=== PATIENT | male | born 1960 | race Caucasian/White ===

== ENCOUNTER → 2019-01-01 | Outpatient (CLI) | payer MEDICARE, OTHER ==
--- NOTE | 2019-01-01 16:56 | CT ---
EXAMINATION TYPE: CT brain wo con DATE OF EXAM: 01/01/2019 COMPARISON: None HISTORY: Transient cerebral ischemic attack CT DLP: 1135.5 mGycm Automated exposure control for dose reduction was used. Helical imaging through the brain FINDINGS: Postop changes are noted at the convexity to the right of midline, multiple patellar fragments are pr esent at the level of the calvarium and also within the parietal brain, there is streak artifact, loc al gliotic change likely present. Extra-axial phenomenon is present likely due to some encephalomalac ia and prior surgery. There is no midline shift. No evident hemorrhage. There is mild cortical atroph y present likely age-related. Some thinning of the corpus callosum is suspected posteriorly. Cerebrov ascular calcifications are present. Paranasal sinuses and mastoid air cells are well aerated. Orbits are symmetric. IMPRESSION: FINDINGS ARE LIKELY DUE TO PRIOR TRAUMA. NO ACUTE ABNORMALITY IS SUSPECTED.
== END | disposition home or self-care (01) ==
LOC: RADCTMAIN 15:35
PROVIDERS: ATTEND Internal Medicine
DX: G45.9 Transient cerebral ischemic attack, unspecified (principal)
CPT/HCPCS: 70450

== ENCOUNTER 2020-02-16 18:15 | Emergency (ER) | payer MEDICARE, OTHER ==
[2020-02-16 18:28] VITALS: BP 138/78; PULSE 88; RESP 18; TEMP 98.2
--- NOTE | 2020-02-16 18:29 | ED ---
General Adult HPI - General Chief complaint: Urogenital Stated complaint: Catheter Issues Time Seen by Provider: 02/16/20 18:17 - History of Present Illness Initial comments: 59-year-old male patient currently residing at an extended care facility with left-sided paralysis and a chronic indwelling Quezada catheter. Patient states for the last 3 days they have been having difficulty reinserting his Quezada catheter. States that he has no control over his bladder and his catheter has been in place since 2004. Patient states he is having some discomfort to his genitalia due to the multiple catheter attempts. Denies any bleeding. Denies any fever or chills. Denies any abdominal pain or flank pain. Patient is coming in only to have his catheter replaced. Patient denies any recent rash, cough, shortness of breath, chest pain, nausea, vomiting, diarrhea, constipation, numbness, tingling, dizziness, weakness, headache, visual changes, or any other complaints. - Related Data Allergies Allergy/AdvReac Type Severity Reaction Status Date / Time No Known Allergies Allergy Verified 02/16/20 18:29 Review of Systems ROS Statement: Those systems with pertinent positive or pertinent negative responses have been documented in the HPI. ROS Other: All systems not noted in ROS Statement are negative. Past Medical History History of Any Multi-Drug Resistant Organisms: VRE Date of last positivie culture/infection: 02/19/19 MDRO Source:: Urine General Exam General appearance: alert, in no apparent distress, other (This is a well- developed, well-nourished adult male patient in no acute distress. ) Respiratory exam: Present: normal lung sounds bilaterally. Absent: respiratory distress, wheezes, rales, rhonchi, stridor Cardiovascular Exam: Present: regular rate, normal rhythm, normal heart sounds. Absent: systolic murmur, diastolic murmur, rubs, gallop, clicks GI/Abdominal exam: Present: soft, normal bowel sounds. Absent: distended, tenderness, guarding, rebound, rigid exam: Present: normal inspection Neurological exam: Present: alert, oriented X3, CN II-XII intact Psychiatric exam: Present: normal affect, normal mood Skin exam: Present: warm, dry, intact, normal color. Absent: rash Course Vital Signs 02/16/20 18:24 Temperature 98.2 F Pulse Rate 88 Respiratory 18 Rate Blood Pressure 138/78 O2 Sat by Pulse 96 Oximetry Medical Decision Making - Medical Decision Making 59-year-old male patient presented for Quezada catheter replacement. Patient has had chronic indwelling Quezada since 2004. Nursing staff at his extended care facility is having difficulty placing the catheter since . Nursing staff here was able to place a 16-Japanese coud catheter. It is draining clear yellow urine. Patient is much more comfort. We discharged back to his extended care facility and instructed to follow-up with his physician as needed. Return parameters were discussed in detail. He verbalizes understanding and agrees with this plan. Disposition Clinical Impression: Encounter for Quezada catheter replacement Disposition: HOME SELF-CARE Condition: Good Instructions (If sedation given, give patient instructions): Quezada Catheter Placement and Care (ED) Additional Instructions: Follow-up with your primary care physician as needed. Return for any new, worsening, or concerning symptoms. Is patient prescribed a controlled substance at d/c from ED?: No Referrals: Daniel You MD [Primary Care Provider] - 1-2 days Time of Disposition: 18:58
== END 2020-02-16 21:42 | disposition home or self-care (01) ==
LOC: EC 18:15
DX: Z46.6 Encounter for fitting and adjustment of urinary device (principal); N42.9 Disorder of prostate, unspecified; G81.94 Hemiplegia, unspecified affecting left nondominant side
CPT/HCPCS: 51702; 99283

== ENCOUNTER → 2021-03-05 | Outpatient (CLI) | payer MEDICARE, OTHER ==
--- NOTE | 2021-03-05 12:31 | CT ---
EXAMINATION TYPE: CT brain wo con DATE OF EXAM: 03/05/2021 COMPARISON: 01/01/2019 INDICATION: Pain behind right eye and right ear. Pain between both eyes. DLP: 1201 mGycm, Automated exposure control for dose reduction was used. CONTRAST: None CT of the brain is performed utilizing 3 mm thick sections through the posterior fossa and 3 mm thick sections through the remaining calvarium. Study is performed within 24 hours of arrival to the hosp ital. Craniotomy defect is at the right parietal vertex. Multiple metallic type fragments are at the cranio av site. There is a dense metallic structure within the parietal lobe region. No abnormal hyperdensity is present to suggest an acute intracranial hemorrhage. No mass lesion is evident. There is encephalomalacia of the right parietal lobe. There is enlargement of the lateral ventricle. No hydrocephalus evident. No temporal horn dilatation is evident. No acute infarcts are evident. Ventricles and sulci are otherwise appropriate for the patient age. Paranasal sinuses and mastoid air cells within the [id number] are clear. Orbits appear symmetrical. Globes are symmetrical. Optic nerves are normal. Region of the optic chias m is unremarkable. Occipital lobes appear within normal limits. IMPRESSIONS: 1. Stable changes in the right parietal lobe with right parietal craniotomy. 2. No suspicious acute interval change or acute changes to account for patient's symptoms
== END | disposition home or self-care (01) ==
LOC: RADCTMAIN 11:33
PROVIDERS: ATTEND Internal Medicine
DX: G44.221 Chronic tension-type headache, intractable (principal)
CPT/HCPCS: 70450

== ENCOUNTER 2021-04-13 05:40 | Emergency (ER) | payer MEDICARE, OTHER ==
[2021-04-13 05:54] VITALS: BP 144/76; PULSE 78; RESP 18; TEMP 97.9
--- NOTE | 2021-04-13 05:59 | ED ---
Fall HPI - General Chief Complaint: Fall Stated Complaint: Fall Time Seen by Provider: 04/13/21 05:46 Source: patient, EMS, RN notes reviewed, old records reviewed Mode of arrival: EMS Limitations: no limitations - History of Present Illness Initial Comments: This is a 60-year-old male presented for evaluation of possible fall. Patient has some sort of fall prior to arrival unsure poor historian. Patient was going of back pain and ankle pain and hit his head. No loss of consciousness. No blood thinners. No chest pain shortness of breath or abdominal pain currently. 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 ROS Other: All systems not noted in ROS Statement are negative. Past Medical History Past Medical History: Prostate Disorder History of Any Multi-Drug Resistant Organisms: VRE Date of last positivie culture/infection: 02/19/19 MDRO Source:: Urine Past Psychological History: No Psychological Hx Reported Past Alcohol Use History: None Reported Past Drug Use History: None Reported General Exam General appearance: alert, in no apparent distress Head exam: Present: atraumatic, normocephalic, normal inspection Eye exam: Present: normal appearance, PERRL, EOMI. Absent: scleral icterus, conjunctival injection, periorbital swelling ENT exam: Present: normal exam, mucous membranes moist Neck exam: Present: normal inspection. Absent: tenderness, meningismus, lymphadenopathy Respiratory exam: Present: normal lung sounds bilaterally. Absent: respiratory distress, wheezes, rales, rhonchi, stridor Cardiovascular Exam: Present: regular rate, normal rhythm, normal heart sounds. Absent: systolic murmur, diastolic murmur, rubs, gallop, clicks GI/Abdominal exam: Present: soft, normal bowel sounds. Absent: distended, tenderness, guarding, rebound, rigid Extremities exam: Present: normal inspection, full ROM, normal capillary refill. Absent: tenderness, pedal edema, joint swelling, calf tenderness Back exam: Present: normal inspection Neurological exam: Present: alert, oriented X3, CN II-XII intact Psychiatric exam: Present: normal affect, normal mood Skin exam: Present: warm, dry, intact, normal color. Absent: rash Course Vital Signs 04/13/21 05:45 Temperature 97.9 F Pulse Rate 78 Respiratory 18 Rate Blood Pressure 144/76 O2 Sat by Pulse 98 Oximetry - Reevaluation(s) Reevaluation #1: Medical records reviewed Patient's in no acute distress of active pain control Symptoms improved feels okay for discharge Medical Decision Making - Medical Decision Making 60 male for mechanical fall. No cause of fall noted. No injury from fall noted. Patient can be discharged home - Radiology Data Radiology results: report reviewed (CT brain C-spine x-ray chest pelvis ankle negative for traumatic injury), image reviewed Disposition Clinical Impression: Fall Disposition: HOME SELF-CARE Condition: Good Instructions (If sedation given, give patient instructions): Fall Prevention for Older Adults (ED) Is patient prescribed a controlled substance at d/c from ED?: No Referrals: Daniel You MD [Primary Care Provider] - 1-2 days
--- NOTE | 2021-04-13 06:30 | CT ---
EXAM: CT Head Without Intravenous Contrast CLINICAL HISTORY: ITS.REASON CT Reason: fall TECHNIQUE: Axial computed tomography images of the head/brain without intravenous contrast. CTDI is 33.185 mGy and DLP is 824.2 mGy-cm. This CT exam was performed using one or more of the following dose reduction techniques: automated exposure control, adjustment of the mA and/or kV according to patient size, and/or use of iterative reconstruction technique. COMPARISON: 03/05/2021 FINDINGS: Brain: Unchanged cystic encephalomalacia involving the right parietal lobe. No hemorrhage. No significant white matter disease. No edema. Ventricles: Unremarkable. No ventriculomegaly. Bones/joints: Right parietal craniectomy with retained metallic fragment along the medial right parietal lobe. No acute fracture. Soft tissues: Unremarkable. Sinuses: Mild bilateral mastoid sinus mucosal thickening. Mastoid air cells: Unremarkable as visualized. No mastoid effusion. IMPRESSION: 1. No acute intracranial process. 2. Stable appearance postsurgical changes from right parietal craniectomy defect and cystic encephalomalacia of the right parietal lobe near the vertex. EXAM: CT Cervical Spine Without Intravenous Contrast CLINICAL HISTORY: ITS.REASON CT Reason: fall TECHNIQUE: Axial computed tomography images of the cervical spine without intravenous contrast. CTDI is 33.185 mGy and DLP is 824.2 mGy-cm. This CT exam was performed using one or more of the following dose reduction techniques: automated exposure control, adjustment of the mA and/or kV according to patient size, and/or use of iterative reconstruction technique. COMPARISON: No relevant prior studies available. FINDINGS: Vertebrae: Unremarkable. No acute fracture. No spondylolisthesis. Discs/spinal canal/neural foramina: No acute findings. No spinal canal stenosis. Multilevel anterior osteophytes, most prominent at C5-C6. Soft tissues: Unremarkable. No prevertebral edema. IMPRESSION: 1. No CT evidence of acute traumatic injury to the cervical spine. 2. Mild degenerative disc disease of the lower cervical spine. No significant spinal canal narrowing.
--- NOTE | 2021-04-13 06:48 | XR ---
EXAM: XR Chest, 1 View CLINICAL HISTORY: ITS.REASON XR Reason: fall TECHNIQUE: Frontal view of the chest. COMPARISON: No relevant prior studies available. FINDINGS: Lungs: Unremarkable. No consolidation. Pleural space: Unremarkable. No pneumothorax. Heart: Unremarkable. No cardiomegaly. Mediastinum: Unremarkable. Bones/joints: Unremarkable. IMPRESSION: No acute pulmonary process.
--- NOTE | 2021-04-13 06:49 | XR ---
EXAM: XR Pelvis, 1 or 2 Views CLINICAL HISTORY: ITS.REASON XR Reason: fall TECHNIQUE: Frontal view of the pelvis. COMPARISON: No relevant prior studies available. FINDINGS: Bones/joints: Unremarkable. No acute fracture. No dislocation. Soft tissues: Unremarkable. IMPRESSION: Normal pelvis x-ray.
--- NOTE | 2021-04-13 06:50 | XR ---
EXAM: XR Left Ankle Complete, 3 or More Views CLINICAL HISTORY: ITS.REASON XR Reason: fall TECHNIQUE: Frontal, lateral and oblique views of the left ankle. COMPARISON: No relevant prior studies available. FINDINGS: Bones/joints: Unremarkable. No acute fracture. No dislocation. Diffuse osteopenia Soft tissues: Soft tissue swelling with circumferential subcutaneous stranding about the left ankle. IMPRESSION: No acute fracture or dislocation of the left ankle.
--- NOTE | 2021-04-13 06:52 | XR ---
EXAM: XR Lumbosacral Spine, 2 or 3 Views CLINICAL HISTORY: ITS.REASON XR Reason: fall TECHNIQUE: Frontal and lateral views of the lumbar spine and sacrum. COMPARISON: No relevant prior studies available. FINDINGS: Vertebrae: Unremarkable. No acute fracture. Normal alignment. Sacrum/coccyx: Unremarkable as visualized. No acute fracture. Disc spaces: No acute findings. Mild disc space narrowing at L4-5 and L5-S1. Large anterior osteophytes at L4-L5. Soft tissues: Unremarkable. IMPRESSION: No acute fractures or spondylolisthesis of the lumbar spine.
== END 2021-04-13 08:55 | disposition home or self-care (01) ==
LOC: EEVIPCON 05:40 → EC 05:40
DX: M25.572 Pain in left ankle and joints of left foot (principal); W01.0XXA Fall on same level from slipping, tripping and stumbling without subsequent striking against object, initial encounter
CPT/HCPCS: 70450; 71045; 72100; 72125; 72170; 99285

== ENCOUNTER → 2021-08-03 | Outpatient (CLI) | payer MEDICARE, OTHER ==
--- NOTE | 2021-08-03 09:41 | CT ---
EXAMINATION TYPE: CT head without contrast CT angio head DATE OF EXAM: 08/03/2021 COMPARISON: 04/13/2021 CT brain HISTORY: 61-year-old male R51 Headache, R56.9 seizure, dizziness TECHNIQUE: Contiguous axial scanning of the brain performed without IV contrast. Coronal and sagittal reconstructions performed. Subsequent scanning after administration of 100 ml mL of Isovue 370. Azul nal/sagittal MIP reconstructions performed. 3-D reconstructions generated on a dedicated independent workstation. CT DLP: 2365 mGycm Automated exposure control for dose reduction was used. FINDINGS: CT HEAD WITHOUT CONTRAST: Redemonstrated superior right frontoparietal craniectomy with some retained metal debris about the os teotomy defect and underlying brain parenchyma as well as within the overlying scalp. Some CSF is again noted bulging across the craniectomy defect measuring 2.7 cm. Redemonstrated underlying encephalomalacia with a contiguous extra-axial enlargement of the atrium of the right lateral ventricle. Adjacent white matter hypodensity extending into the superior right occipital lobe is unchanged. No evidence for acute intracranial hemorrhage, acute ischemic change, mass, mass effect, midline shif t, otherwise any extra-axial fluid collection. No effacement of cerebral sulci or basal subarachnoid cisterns. Cole-white matter differentiation is maintained. Lobulated mucosal thickening redemonstrated along the floor of the left maxillary sinus. Mastoid air cells well pneumatized. Orbits and globes appear intact. CTA BRAIN: The right vertebral artery is hypoplastic and diminutive. It may terminate as a PICA branch. Vertebral and basilar arteries are patent. Persistent origin right posterior cerebral artery. Posterior circulation otherwise appears mitchell nt: Mild atherosclerotic irregularity throughout. Mild atherosclerotic calcifications within the carotid siphons. Possible moderate atherosclerotic rayna rowing at the clinoid segment of the right ICA, axial image 232 series 9. Mild atherosclerotic irregularity throughout the anterior circulation but otherwise without any signi ficant stenosis. No aneurysmal change is seen. IMPRESSION: HEAD: 1. REDEMONSTRATED RIGHT-SIDED SUPERIOR FRONTOPARIETAL CRANIECTOMY WITH SIMILAR 2.7 CM BULGING CSF ACR OSS THE CALVARIAL DEFECT. RETAINED BULLET DEBRIS HERE AND IN THE ADJACENT TISSUES. 2. UNCHANGED UNDERLYING ENCEPHALOMALACIA AND CONTIGUOUS EX VACUO DILATATION ATRIUM OF THE RIGHT LATER AL VENTRICLE. 3. NO ACUTE INTRACRANIAL ABNORMALITY SEEN. 4. MILD CHRONIC LEFT MAXILLARY SINUS DISEASE. CTA BRAIN: 5. MILD ATHEROSCLEROTIC IRREGULARITY THROUGHOUT THE ANTERIOR AND POSTERIOR CIRCULATIONS. 6. POSSIBLE MODERATE ATHEROSCLEROTIC STENOSIS CLINOID SEGMENT RIGHT ICA. 7. DIMINUTIVE/HYPOPLASTIC RIGHT VERTEBRAL ARTERY. THIS TINY VESSEL MAY TERMINATE A PICA BRANCH. 8. VARIANT ANATOMY WITH PERSISTENT ORIGIN RIGHT ROUTE SALESMAN. 9. NO ANEURYSMAL CHANGE IS SEEN.
== END | disposition home or self-care (01) ==
LOC: RADCTMAIN 07:50
PROVIDERS: ATTEND Psychiatry & Neurology Neurology
DX: G93.89 Other specified disorders of brain (principal); I67.2 Cerebral atherosclerosis
CPT/HCPCS: 70496; Q9967

== ENCOUNTER → 2021-08-18 | Outpatient (CLI) | payer MEDICARE, OTHER ==
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
== END | disposition home or self-care (01) ==
LOC: RADUSWWP 13:26
PROVIDERS: ATTEND Psychiatry & Neurology Neurology
DX: G45.9 Transient cerebral ischemic attack, unspecified (principal)
CPT/HCPCS: 93880

== ENCOUNTER 2021-11-21 14:05 | Emergency (ER) | payer MEDICARE, OTHER ==
--- NOTE | 2021-11-21 14:12 | ED ---
General Adult HPI - General Stated complaint: Unable to urinate Time Seen by Provider: 11/21/21 14:11 Source: patient, EMS, RN notes reviewed Limitations: physical limitation - History of Present Illness Initial comments: This a 61-year-old male presents emergency Department with chief complaint of Quezada catheter issues. Patient's Quezada catheter started draining earlier this morning. Patient feels urge that needs draining. Patient was sent from [facility] for Quezada catheter change. Patient offers not complaints states he otherwise feels fine. Patient states that he's had Quezada catheters for almost 40 years - Related Data Allergies Allergy/AdvReac Type Severity Reaction Status Date / Time No Known Allergies Allergy Verified 11/21/21 14:22 Review of Systems ROS Statement: Those systems with pertinent positive or pertinent negative responses have been documented in the HPI. ROS Other: All systems not noted in ROS Statement are negative. Past Medical History Past Medical History: Prostate Disorder History of Any Multi-Drug Resistant Organisms: VRE Date of last positivie culture/infection: 02/19/19 MDRO Source:: Urine Past Psychological History: No Psychological Hx Reported Past Alcohol Use History: None Reported Past Drug Use History: None Reported General Exam Limitations: no limitations General appearance: alert, in no apparent distress Head exam: Present: atraumatic, normocephalic, normal inspection Neck exam: Present: normal inspection. Absent: tenderness, meningismus, lymphadenopathy Respiratory exam: Present: normal lung sounds bilaterally. Absent: respiratory distress, wheezes, rales, rhonchi, stridor Cardiovascular Exam: Present: regular rate, normal rhythm, normal heart sounds. Absent: systolic murmur, diastolic murmur, rubs, gallop, clicks GI/Abdominal exam: Present: soft, normal bowel sounds. Absent: distended, tenderness, guarding, rebound, rigid Course Vital Signs 11/21/21 14:19 Temperature 98.3 F Pulse Rate 82 Respiratory 18 Rate Blood Pressure 140/79 O2 Sat by Pulse 95 Oximetry Medical Decision Making - Medical Decision Making Fully catheter was exchanged with no compilations draining well patient feels within normal limits patient we discharged back to assisted Disposition Clinical Impression: Quezada catheter problem, Urinary retention Disposition: HOME SELF-CARE Condition: Stable Instructions (If sedation given, give patient instructions): Quezada Catheter Placement and Care (ED) Additional Instructions: Please return to the Emergency Department if symptoms worsen or any other concerns. Is patient prescribed a controlled substance at d/c from ED?: No Referrals: None,Stated [Primary Care Provider] - 1-2 days
[2021-11-21 14:22] VITALS: BP 140/79; PULSE 82; RESP 18; TEMP 98.3
== END 2021-11-21 15:01 | disposition home or self-care (01) ==
LOC: EC 14:05
DX: T83.098A Other mechanical complication of other urinary catheter, initial encounter (principal); R33.9 Retention of urine, unspecified
CPT/HCPCS: 51702; 99283

== ENCOUNTER → 2022-02-05 | Outpatient (CLI) | payer MEDICARE, OTHER ==
[~2022-02-05] MED LIST: REGADENOSON 0.4 MG/5 ML SYRINGE IV PRN
--- NOTE | 2022-02-05 11:12 | CA ---
Lexiscan Nuclear Stress Test Report Name: Baljit Peterson Exam Date: 02/05/2022 09:20 Exam Location: [place] Stress Ht (in): 74 Wt (lb): 315 BSA: 2.64 Ordering Phys: Jarrod Dhaliwal MD Referring Phys: TERRY, Technologist: Moon Pineda RDCS Age: 61 Gender: M : 1960 Procedure CPT: Indications: I25 CAD ICD-10 Codes: Patient History: Medications: Meds past 24 hrs: Pretest Chest Pain: STRESS TEST Lexiscan Protocol Exercise Duration (min:sec): 01:[address] Depressions (mm): Angina Score: Ferrell Score: Resting HR (bpm): 58 Peak HR (bpm): 75 Resting BP (mmHg): 116 / 76 Peak BP (mmHg): / 76 MPHR: 158 Target HR: 134 % MPHR: 47 METS: 1.0 Total Dose: Peak Dose: Atropine: Double Product: BP Response: Stress Termination: Stress Symptoms: Stress Summary: ECG ANALYSIS Resting ECG: Stress ECG: CONCLUSIONS Baseline heart rate 57 beats a minute, Baseline blood pressure 116/76 mmHg Baseline EKG showed sinus rhythm with 0.[address] elevation inferolaterally consistent with early repolarization abnormality Occasional PVCs noted Patient received Lexiscan infusion per protocol No change in heart rate and blood pressure No ECG abnormalities Patient complained of shortness of breath which resolved in 2 minutes Nuclear portion will be reported separately Dr. Diony Sepulveda MD (Electronically Signed) Final Date: 05 Feb 2022 11:11
--- NOTE | 2022-02-05 11:45 | NM ---
EXAMINATION TYPE: NM stress lexiscan cardiolite DATE OF EXAM: 02/05/2022 COMPARISON: NONE HISTORY: Precordial chest pain and abnormal EKG TECHNIQUE: After the intravenous administration of 10.2 mCi Tc 99m Sestamibi - Cardiolite resting SP ECT images acquired 45 minutes post injection. The patient received 0.4mg Lexiscan, 25.4 mCi Tc 99m Sestamibi - Stress images obtained [address] injection FINDINGS: Review of stress and rest SPECT images an area reversibility involving the cardiac apex and inferior wall. Stress-induced ischemia is not excluded. Fixed defect involving the lateral wall as well as the anterior lateral wall. Gated analysis shows normal wall motion with an estimated left ventricular ej ection fraction of 55 %. IMPRESSION: Chest induced ischemia is not excluded involving the cardiac apex and apicoinferior wall.
== END | disposition home or self-care (01) ==
LOC: RADNMMAIN 07:13
PROVIDERS: ATTEND Internal Medicine
DX: I49.3 Ventricular premature depolarization (principal)
CPT/HCPCS: 93017; 78452; A9500; J2785

== ENCOUNTER 2022-03-04 05:51 | Day surgery (SDC) | payer MEDICARE, OTHER ==
[2022-03-02 15:14] VITALS: BMI 41.5
[2022-03-04] MEDS ORDERED: NITROGLYCERIN SL TABS 0.4 MG TAB SUBLINGUAL PRN (06:08)
[2022-03-04] MEDS ORDERED: HEPARIN SODIUM,PORCINE 2,500 UNIT in SODIUM CHLORIDE 0.9% 250 ML IRRIGATION PRN (06:08)
[2022-03-04] MEDS ORDERED: HEPARIN SODIUM,PORCINE 10,000 UNIT in SODIUM CHLORIDE 0.9% 1,000 ML IRRIGATION PRN (06:08)
[2022-03-04] MEDS ORDERED: SODIUM CHLORIDE 0.9% 1,000 ML in EMPTY BAG 1 BAG IV SCH (06:08)
[2022-03-04] MEDS ORDERED: ALPRAZolam 0.25 MG TAB PO PRN (06:08)
[2022-03-04] MEDS ORDERED: ASPIRIN 325 MG TAB PO STA (06:08)
[2022-03-04] MEDS ORDERED: ALPRAZolam 0.5 MG TAB PO PRN (06:08)
[2022-03-04] MEDS ORDERED: ATORVASTATIN 80 MG TAB PO STA (06:08)
[2022-03-04] MEDS ORDERED: ASPIRIN 81 MG ONE (07:06)
[2022-03-04 07:21] VITALS: TEMP 97.9
[2022-03-04] MEDS ORDERED: LIDOCAINE 1% PF 10 MG/ML (5 ML AMP) SQ ONE (07:48)
[2022-03-04] MEDS ORDERED: MIDAZOLAM 2 MG/2 ML VIAL IV ONE (07:48)
[2022-03-04] MEDS ORDERED: fentaNYL (PF) 50 MCG/ML 2 ML AMP IV ONE (07:49)
[2022-03-04] MEDS ORDERED: LIDOCAINE 1% INJ 10MG/ML (30 ML VIAL-PF) SQ ONE (07:56)
[2022-03-04] MEDS ORDERED: IOPAMIDOL-370 125ML BTL INJ ONE (08:06)
--- NOTE | 2022-03-04 09:00 | CC ---
CARDIAC CATHETERIZATION REPORT INDICATION: This is a 61-year-old gentleman with a history of hypothyroidism and hypertension who presented to Dr. You with symptoms of exertional shortness of breath. He underwent a stress test that showed ischemia involving cardiac apex and apical inferior wall, due to which he was referred to me for cardiac catheterization. The patient was explained risks, benefits and alternatives of cardiac catheterization, understood and accepted. PROCEDURE NOTE: After obtaining informed consent, left heart catheterization and coronary angiogram were performed via the right femoral artery using standard Jf catheters. The patient tolerated the procedure well without any obvious immediate complications. A femoral angiogram was performed and we decided on manual hemostasis, as the site of entry was very close to the bifurcation. Patient received moderate conscious sedation. Total sedation time was 24 minutes. I initially attempted vascular access of the right radial artery. I anesthetized the wrist area with lidocaine and sedated the patient with Versed and fentanyl and proceeded to get access into the right radial artery using a micropuncture needle. I passed a sheath into the radial artery. However, I was not getting good blood flow; hence I decided to proceed with cardiac catheterization femorally. I removed the sheath, applied pressure, and there was no hematoma, no bleed, and the radial pulses and the perfusion of the right arm remained good throughout. FINDINGS: HEMODYNAMICS: Left ventricular end-diastolic pressure is 17 mm. There is no significant gradient across the aortic valve. LEFT VENTRICULOGRAM: Left ventriculogram was not performed. ANGIOGRAPHIC DATA: Left main coronary artery is a normal-sized vessel and is free of stenosis. It divides into left anterior descending coronary artery and circumflex coronary artery. LAD and its branches, circumflex coronary artery and its branches are free of significant stenosis. Right coronary artery is a large dominant vessel and is free of significant disease. CONCLUSIONS: 1. Normal coronary arteries. 2. Elevated left ventricular end-diastolic pressures. PLAN: Patient's symptoms are probably noncardiac in origin and his stress test is a false- positive stress test. His management is going to be in the form of optimal medical therapy and risk factor modification. MMODL / IJN: [id number] /
[2022-03-04] MEDS ORDERED: GABAPENTIN 300 MG CAP PO STA (11:54)
[2022-03-04] MEDS ORDERED: IBUPROFEN 600 MG TAB PO STA (11:54)
[2022-03-04] MEDS ORDERED: chlorproMAZINE 25 MG TAB PO ONE (12:00)
[2022-03-04 16:53] VITALS: BP 163/79; PULSE 68; RESP 16
[2022-03-04] MEDS ORDERED: chlorproMAZINE 25 MG TAB PO SCH (18:00)
== END 2022-03-04 14:57 ==
LOC: CATHCVL 05:51
PROVIDERS: ATTEND Internal Medicine Cardiovascular Disease
DX: I50.1 Left ventricular failure, unspecified (principal); E03.9 Hypothyroidism, unspecified; I10 Essential (primary) hypertension
CPT/HCPCS: 93458; C1769 ×2; C1894 ×2; J2250; J2001 ×2; J3010; Q9967

== ENCOUNTER 2022-04-17 08:28 | Inpatient (IN) | payer MEDICARE, OTHER ==
[2022-04-17] MEDS ORDERED: IBUPROFEN 600 MG TAB PO STA (08:33)
[2022-04-17] MEDS ORDERED: ACETAMINOPHEN TAB 500 MG TAB PO STA (08:33)
--- NOTE | 2022-04-17 08:41 | ED ---
General Adult HPI - General Chief complaint: Shortness of Breath Stated complaint: ROSLYN Time Seen by Provider: 04/17/22 08:30 Source: patient, EMS, RN notes reviewed, old records reviewed Mode of arrival: EMS Limitations: physical limitation - History of Present Illness Initial comments: This is a 61-year-old male who presents emergency Department complaining of a fever and shortness of breath per patient [place]. Patient states he thinks it started this morning. Though he appears to be a poor historian. Patient also states he has some right-sided chest pain. Patient denies any cough. Patient states she always has swelling to the legs and that has not changed. Patient denies abdominal pain patient has a urinary catheter in place. Patient denies any back pain. Patient denies any recent fall or injury. - Related Data Home Medications Medication Instructions Recorded Confirmed ARIPiprazole 15 mg PO DAILY 03/03/22 03/04/22 Acetaminophen [Tylenol] 650 mg PO Q4H PRN 03/03/22 03/03/22 Albuterol Sulfate [Albuterol 2 puff PO QID 03/03/22 03/04/22 Sulfate Hfa] Artificial Tears-Hypromellose 1 drops BOTH EYES BID 03/03/22 03/04/22 [Artificial Tear Drops] Artificial Tears-Hypromellose 1 drops BOTH EYES QID PRN 03/03/22 03/03/22 [Artificial Tear Drops] Baclofen [Lioresal] 10 mg PO Q12H 03/03/22 03/04/22 Bismuth Subsalicylate 30 ml PO Q4H PRN 03/03/22 03/03/22 [Pepto-Bismol] Butalb/Acetaminophen/Caffeine 1 cap PO BID PRN 03/03/22 03/04/22 [Fioricet 50-300-40 mg Capsule] Chlorhexidine Gluconate [Peridex] 15 ml PO BID 03/03/22 03/04/22 Cyanocobalamin [Vitamin B-12] 500 mcg PO DAILY 03/03/22 03/04/22 Fluticasone Propionate [Flonase 1 spray EA NOSTRIL DAILY 03/03/22 03/04/22 Allergy Relief] Folic Acid 1 mg PO DAILY 03/03/22 03/04/22 Furosemide [Lasix] 40 mg PO BID 03/03/22 03/04/22 Gabapentin 600 mg PO TID 03/03/22 03/04/22 Galcanezumab-Gnlm [Emgality 120 mg SQ Q28D 03/03/22 03/03/22 Syringe] Ibuprofen 600 mg PO Q6H PRN 03/03/22 03/04/22 Isosorbide Mononitrate ER [Imdur] 30 mg PO DAILY 03/03/22 03/03/22 Levothyroxine Sodium 25 mcg PO QAM 03/03/22 03/04/22 Loperamide HCl [Loperamide] 2 mg PO Q6H PRN 03/03/22 03/03/22 Loratadine 10 mg PO DAILY 03/03/22 03/04/22 Lovastatin [Mevacor] 20 mg PO 03/03/22 03/04/22 Menthol [Biofreeze] 1 applic TOPICAL QID PRN 03/03/22 03/03/22 Metoprolol Tartrate [Lopressor] 50 mg PO Q12H 03/03/22 03/04/22 Montelukast Sodium [Singulair] 10 mg PO 03/03/22 03/04/22 Omeprazole 20 mg PO DAILY 03/03/22 03/04/22 PARoxetine HCL [Paxil] 10 mg PO DAILY 03/03/22 03/04/22 PARoxetine HCL [Paxil] 40 mg PO DAILY 03/03/22 03/04/22 Potassium Chloride [Klor-Con M20] 20 meq PO BID 03/03/22 03/04/22 Refresh P.M. Ointment 1 applic BOTH EYES 03/03/22 03/04/22 Sennosides [Senokot] 2 tab PO DAILY 03/03/22 03/04/22 Tamsulosin HCl [Flomax] 0.4 mg PO BID 03/03/22 03/04/22 allopurinoL [Zyloprim] 100 mg PO DAILY 03/03/22 03/04/22 chlorproMAZINE [Thorazine] 25 mg PO QID 03/03/22 03/04/22 guaiFENesin [guaiFENesin Oral 20 ml PO Q4H PRN 03/03/22 03/03/22 Solution] lamoTRIgine [LaMICtal] 50 mg PO DAILY 03/03/22 03/04/22 polyethylene glycoL 3350 [Miralax] 17 gm PO DAILY 03/03/22 03/04/22 Allergies Allergy/AdvReac Type Severity Reaction Status Date / Time No Known Allergies Allergy Verified 03/02/22 14:46 Review of Systems ROS Statement: Those systems with pertinent positive or pertinent negative responses have been documented in the HPI. ROS Other: All systems not noted in ROS Statement are negative. Past Medical History Past Medical History: CVA/TIA, GERD/Reflux, Hyperlipidemia, Hypertension, Osteoa rthritis (OA), Prostate Disorder, Thyroid Disorder Additional Past Medical History / Comment(s): CVA with left sided deficits. Indwelling mohr catheter, neuromuscular dysfunction of bladder. Hx Epilepsy, no seizures since 2018. Hypothyroid. History of Any Multi-Drug Resistant Organisms: VRE Date of last positivie culture/infection: 2018 MDRO Source:: unknown Past Surgical History: Unable to Obtain Past Anesthesia/Blood Transfusion Reactions: No Reported Reaction Past Psychological History: Anxiety, Bipolar, Depression Smoking Status: Unknown if ever smoked Past Alcohol Use History: Rare Past Drug Use History: None Reported - Past Family History Mother Family Medical History: Unable to Obtain General Exam - General Exam Comments Initial Comments: GENERAL: Patient is well-developed and well-nourished. Patient is nontoxic and well- hydrated and is in mild distress. ENT: Neck is soft and supple. No significant lymphadenopathy is noted. Oropharynx is clear. Moist mucous membranes. Neck has full range of motion without eliciting any pain. EYES: The sclera were anicteric and conjunctiva were pink and moist. Extraocular movements were intact and pupils were equal round and reactive to light. Eyelids were unremarkable. PULMONARY: Patient has crackles in the left base CARDIOVASCULAR: Patient is tachycardic at about 120 beats a minute ABDOMEN: Soft and nontender with normal bowel sounds. SKIN: Skin is clear with no lesions or rashes and otherwise unremarkable. NEUROLOGIC: Patient is alert and oriented x3. Cranial nerves II through XII are grossly intact. Motor and sensory are also intact. Normal speech, volume and content. Symmetrical smile. MUSCULOSKELETAL: Patient does not move the left arm secondary to a stroke. Patient's legs are edematous bilaterally LYMPHATICS: No significant lymphadenopathy is noted PSYCHIATRIC: Normal psychiatric evaluation. Limitations: physical limitation Course Vital Signs 04/17/22 04/17/22 04/17/22 08:29 08:32 09:26 Temperature 102.5 F H 101.7 F H Pulse Rate 115 H 113 H Respiratory 22 22 20 Rate Blood Pressure 135/68 152/114 O2 Sat by Pulse 99 96 Oximetry Medical Decision Making - Medical Decision Making EKG shows sinus tachycardia at 113 bpm ND interval is 140 QRS is 94 QT interval 3:30 QTC is 398. Patient's EKG shows no ST segment elevation or depression. Chest x-ray shows no acute abnormality - Lab Data Result diagrams: 04/17/22 08:44 04/17/22 08:44 Lab Results 04/17/22 04/17/22 04/17/22 Range/Units 08:44 08:44 08:44 WBC 16.9 H (3.8-10.6) k/uL RBC 5.01 (4.30-5.90) m/uL Hgb 14.2 (13.0-17.5) gm/dL Hct 45.5 (39.0-53.0) % MCV 90.8 (80.0-100.0) fL MCH 28.4 (25.0-35.0) pg MCHC 31.3 (31.0-37.0) g/dL RDW 14.4 (11.5-15.5) % Plt Count 188 (150-450) k/uL MPV 8.8 Neutrophils % 91 % Lymphocytes % 5 % Monocytes % 3 % Eosinophils % 1 % Basophils % 0 % Neutrophils # 15.3 H (1.3-7.7) k/uL Lymphocytes # 0.9 L (1.0-4.8) k/uL Monocytes # 0.5 (0-1.0) k/uL Eosinophils # 0.1 (0-0.7) k/uL Basophils # 0.0 (0-0.2) k/uL PT 11.5 (9.0-12.0) sec INR 1.1 (<1.2) APTT 24.9 (22.0-30.0) sec Sodium (137-145) mmol/L Potassium (3.5-5.1) mmol/L Chloride (98-107) mmol/L Carbon Dioxide (22-30) mmol/L Anion Gap mmol/L BUN (9-20) mg/dL Creatinine (0.66-1.25) mg/dL Est GFR (CKD-EPI)AfAm (>60 ml/min/1.73 sqM) Est GFR (CKD-EPI)NonAf (>60 ml/min/1.73 sqM) Glucose (74-99) mg/dL Plasma Lactic Acid Edgard (0.7-2.0) mmol/L Calcium (8.4-10.2) mg/dL Total Bilirubin (0.2-1.3) mg/dL AST (17-59) U/L ALT (4-49) U/L Alkaline Phosphatase (38-126) U/L Troponin I 0.073 H* (0.000-0.034) ng/mL Total Protein (6.3-8.2) g/dL Albumin (3.5-5.0) g/dL Urine Color Urine Appearance (Clear) Urine pH (5.0-8.0) Ur Specific [place] (1.001-1.035) Urine Protein (Negative) Urine Glucose (UA) (Negative) Urine Ketones (Negative) Urine Blood (Negative) Urine Nitrite (Negative) Urine Bilirubin (Negative) Urine Urobilinogen (<2.0) mg/dL Ur Leukocyte Esterase (Negative) Urine RBC (0-5) /hpf Urine WBC (0-5) /hpf Urine WBC Clumps (None) /hpf Ur Squamous Epith Cells (0-4) /hpf Urine Bacteria (None) /hpf Hyaline Casts (0-2) /lpf Urine Mucus (None) /hpf Coronavirus (PCR) (Not Detectd) Influenza Type A RNA (Not Detectd) Influenza Type B (PCR) (Not Detectd) 04/17/22 04/17/22 04/17/22 Range/Units 08:44 08:44 08:44 WBC (3.8-10.6) k/uL RBC (4.30-5.90) m/uL Hgb (13.0-17.5) gm/dL Hct (39.0-53.0) % MCV (80.0-100.0) fL MCH (25.0-35.0) pg MCHC (31.0-37.0) g/dL RDW (11.5-15.5) % Plt Count (150-450) k/uL MPV Neutrophils % % Lymphocytes % % Monocytes % % Eosinophils % % Basophils % % Neutrophils # (1.3-7.7) k/uL Lymphocytes # (1.0-4.8) k/uL Monocytes # (0-1.0) k/uL Eosinophils # (0-0.7) k/uL Basophils # (0-0.2) k/uL PT (9.0-12.0) sec INR (<1.2) APTT (22.0-30.0) sec Sodium 141 (137-145) mmol/L Potassium 4.3 (3.5-5.1) mmol/L Chloride 100 (98-107) mmol/L Carbon Dioxide 26 (22-30) mmol/L Anion Gap 15 mmol/L BUN 22 H (9-20) mg/dL Creatinine 1.34 H (0.66-1.25) mg/dL Est GFR (CKD-EPI)AfAm 66 (>60 ml/min/1.73 sqM) Est GFR (CKD-EPI)NonAf 57 (>60 ml/min/1.73 sqM) Glucose 110 H (74-99) mg/dL Plasma Lactic Acid Edgard 1.9 (0.7-2.0) mmol/L Calcium 9.4 (8.4-10.2) mg/dL Total Bilirubin 1.3 (0.2-1.3) mg/dL AST 25 (17-59) U/L ALT 17 (4-49) U/L Alkaline Phosphatase 129 H (38-126) U/L Troponin I (0.000-0.034) ng/mL Total Protein 8.1 (6.3-8.2) g/dL Albumin 4.7 (3.5-5.0) g/dL Urine Color Yellow Urine Appearance Cloudy (Clear) Urine pH 5.5 (5.0-8.0) Ur Specific [place] 1.014 (1.001-1.035) Urine Protein 1+ H (Negative) Urine Glucose (UA) Negative (Negative) Urine Ketones Negative (Negative) Urine Blood Small H (Negative) Urine Nitrite Negative (Negative) Urine Bilirubin Negative (Negative) Urine Urobilinogen <2.0 (<2.0) mg/dL Ur Leukocyte Esterase Large H (Negative) Urine RBC 10 H (0-5) /hpf Urine WBC 121 H (0-5) /hpf Urine WBC Clumps Moderate H (None) /hpf Ur Squamous Epith Cells <1 (0-4) /hpf Urine Bacteria Rare H (None) /hpf Hyaline Casts 3 H (0-2) /lpf Urine Mucus Rare H (None) /hpf Coronavirus (PCR) (Not Detectd) Influenza Type A RNA (Not Detectd) Influenza Type B (PCR) (Not Detectd) 04/17/22 04/17/22 Range/Units 08:44 08:44 WBC (3.8-10.6) k/uL RBC (4.30-5.90) m/uL Hgb (13.0-17.5) gm/dL Hct (39.0-53.0) % MCV (80.0-100.0) fL MCH (25.0-35.0) pg MCHC (31.0-37.0) g/dL RDW (11.5-15.5) % Plt Count (150-450) k/uL MPV Neutrophils % % Lymphocytes % % Monocytes % % Eosinophils % % Basophils % % Neutrophils # (1.3-7.7) k/uL Lymphocytes # (1.0-4.8) k/uL Monocytes # (0-1.0) k/uL Eosinophils # (0-0.7) k/uL Basophils # (0-0.2) k/uL PT (9.0-12.0) sec INR (<1.2) APTT (22.0-30.0) sec Sodium (137-145) mmol/L Potassium (3.5-5.1) mmol/L Chloride (98-107) mmol/L Carbon Dioxide (22-30) mmol/L Anion Gap mmol/L BUN (9-20) mg/dL Creatinine (0.66-1.25) mg/dL Est GFR (CKD-EPI)AfAm (>60 ml/min/1.73 sqM) Est GFR (CKD-EPI)NonAf (>60 ml/min/1.73 sqM) Glucose (74-99) mg/dL Plasma Lactic Acid [place] (0.7-2.0) mmol/L Calcium (8.4-10.2) mg/dL Total Bilirubin (0.2-1.3) mg/dL AST (17-59) U/L ALT (4-49) U/L Alkaline Phosphatase (38-126) U/L Troponin I (0.000-0.034) ng/mL Total Protein (6.3-8.2) g/dL Albumin (3.5-5.0) g/dL Urine Color Urine Appearance (Clear) Urine pH (5.0-8.0) Ur Specific [place] (1.001-1.035) Urine Protein (Negative) Urine Glucose (UA) (Negative) Urine Ketones (Negative) Urine Blood (Negative) Urine Nitrite (Negative) Urine Bilirubin (Negative) Urine Urobilinogen (<2.0) mg/dL Ur Leukocyte Esterase (Negative) Urine RBC (0-5) /hpf Urine WBC (0-5) /hpf Urine WBC Clumps (None) /hpf Ur Squamous Epith Cells (0-4) /hpf Urine Bacteria (None) /hpf Hyaline Casts (0-2) /lpf Urine Mucus (None) /hpf Coronavirus (PCR) Not Detected (Not Detectd) Influenza Type A RNA Not Detected (Not Detectd) Influenza Type B (PCR) Not Detected (Not Detectd) Disposition Clinical Impression: Urinary tract infection, Sepsis, Renal insufficiency, Elevated troponin Disposition: ADMITTED IP TO THIS HOSP Referrals: Daniel You MD [Primary Care Provider] - 1-2 days Time of Disposition: 10:01
[2022-04-17] MEDS: SODIUM CHLORIDE 0.9% 500 ML 500 ML IV SCH ×2 (08:50→10:12)
--- NOTE | 2022-04-17 09:15 | XR ---
EXAMINATION TYPE: XR chest 2V DATE OF EXAM: 04/17/2022 COMPARISON: 04/13/2021 HISTORY: Shortness of breath TECHNIQUE: Frontal and lateral views of the chest are obtained. FINDINGS: Scattered senescent parenchymal changes noted. Hyperinflation compatible with COPD. No evidence for infiltrate. No evidence for atelectasis. Heart size is stable. Mediastinal structures are stable and grossly unremarkable. No evidence for hilar prominence. Degenerative changes dorsal spine. IMPRESSION: 1. No evidence for acute pulmonary disease.
[2022-04-17 09:16] LABS: Basophils % (A) 0 %; Eosinophils # (A) 0.1 k/uL (0-0.7); Eosinophils % (A) 1 %; HCT 45.5 % (39.0-53.0); HGB 14.2 gm/dL (13.0-17.5); Lymphocytes # (A) 0.9 k/uL (1.0-4.8); Lymphocytes % (A) 5 %; MCH 28.4 pg (25.0-35.0); MCHC 31.3 g/dL (31.0-37.0); MCV 90.8 fL (80.0-100.0); Mean Platelet Volume 8.8; Monocytes # (A) 0.5 k/uL (0-1.0); Monocytes % (A) 3 %; Neutrophils # (A) 15.3 k/uL (1.3-7.7); Neutrophils % (A) 91 %; Platelet Count 188 k/uL (150-450); RBC 5.01 m/uL (4.30-5.90); RDW 14.4 % (11.5-15.5); WBC 16.9 k/uL (3.8-10.6)
[2022-04-17 09:20] LABS: Albumin 4.7 g/dL (3.5-5.0); Appearance,Urine Cloudy (Clear); Bacteria,Urine Rare /hpf; Bilirubin,Urine Negative (Negative); Blood,Urine Small (Negative); Calcium 9.4 mg/dL (8.4-10.2); Color,Urine Yellow; Glucose,Urine (UA) Negative (Negative); Hyaline Casts,Urine 3 /lpf (0-2); Ketones,Urine Negative (Negative); Leukocyte Esterase,Urine Large (Negative); Mucus,Urine Rare /hpf; Nitrite,Urine Negative (Negative); PH, Urine 5.5 (5.0-8.0); Potassium 4.3 mmol/L (3.5-5.1); Protein,Urine 1+ (Negative); RBC,Urine 10 /hpf (0-5); Specific Gravity,Urine 1.014 (1.001-1.035); Squamous Epithelial Cell,Urine <1 /hpf (0-4); Total Bilirubin 1.3 mg/dL (0.2-1.3); Total Protein 8.1 g/dL (6.3-8.2); Urobilinogen,Urine <2.0 mg/dL (<2.0); WBC,Urine 121 /hpf (0-5)
[2022-04-17 09:23] LABS: INR 1.1 (<1.2); Partial Thromboplastin Time 24.9 sec (22.0-30.0); Prothrombin Time 11.5 sec (9.0-12.0)
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
[2022-04-17] MEDS ORDERED: guaiFENesin SYRUP 100MG/5ML 200 MG/10 ML CUP PO PRN (13:17)
[2022-04-17] MEDS ORDERED: ARTIFICIAL TEARS-HYPROMELLOSE DROPS 15 ML BTL BOTH EYES PRN (13:17)
[2022-04-17] MEDS ORDERED: LOPERAMIDE 2 MG CAP PO PRN (13:17)
[2022-04-17] MEDS ORDERED: NON FORMULARY DRUG (Ubrogepant [Ubrelvy] 100 MG Tablet) PO PRN (13:17)
[2022-04-17] MEDS ORDERED: BUTALB/APAP/CAFF 50-325-40MG TAB PO PRN (13:17)
[2022-04-17] MEDS: ALBUTEROL NEBULIZED 2.5 MG/3 ML INHALATION SCH ×2 (16:05→19:31)
[2022-04-17] MEDS: THIORIDAZINE HCL PO SCH ×2 (16:23→19:32)
[2022-04-17] MEDS: SODIUM CHLORIDE 0.9% 1,000 ML IV SCH (16:25)
[2022-04-17] MEDS: CEFEPIME 2 GM in SODIUM CHLORIDE 0.9% 100 ML IVPB SCH ×2 (16:25→23:00)
[2022-04-17] MEDS: ARTIFICIAL TEARS-HYPROMELLOSE DROPS 15 ML BTL BOTH EYES SCH (16:25)
[2022-04-17] MEDS: ACETAMINOPHEN TAB 325 MG TAB PO PRN (18:24)
[2022-04-17] MEDS: ARTIFICIAL TEARS OINTMENT 3.5 GM TUBE BOTH EYES SCH (19:32)
[2022-04-17] MEDS: DICLOFENAC SODIUM GEL 100 GM TUBE TOPICAL SCH (20:10)
[2022-04-17] MEDS: ATORVASTATIN 10 MG TAB PO SCH (20:42)
[2022-04-17] MEDS: BACLOFEN 10 MG TAB PO SCH (20:42)
[2022-04-17] MEDS: GABAPENTIN 300 MG CAP PO SCH (20:43)
[2022-04-17] MEDS: TAMSULOSIN 0.4 MG CAP.ER.24H PO SCH (20:43)
[2022-04-17] MEDS: METOPROLOL TARTRATE 50 MG TAB PO SCH (20:43)
[2022-04-17] MEDS: MONTELUKAST 10 MG TAB PO SCH (20:43)
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
[2022-04-18] MEDS: SODIUM CHLORIDE 0.9% 1,000 ML IV SCH ×2 (04:50→17:28)
[2022-04-18] MEDS: LEVOTHYROXINE 25 MCG TAB PO SCH (05:56)
[2022-04-18] MEDS: PANTOPRAZOLE 40 MG TABLET PO SCH (05:56)
[2022-04-18] MEDS: POTASSIUM CHLORIDE ER 20 MEQ TAB.ER PO SCH ×2 (05:56→14:03)
[2022-04-18] MEDS: ARTIFICIAL TEARS-HYPROMELLOSE DROPS 15 ML BTL BOTH EYES SCH ×2 (05:56→17:29)
[2022-04-18] MEDS: ALBUTEROL NEBULIZED 2.5 MG/3 ML INHALATION SCH ×4 (07:19→19:10)
[2022-04-18] MEDS ORDERED: ONDANSETRON 4 MG/2 ML VIAL IVP PRN (07:52)
[2022-04-18] MEDS ORDERED: NON FORMULARY DRUG (Paroxetine Hcl [Paxil] 40 MG Tablet) PO SCH (09:00)
[2022-04-18] MEDS ORDERED: NON FORMULARY DRUG (Omeprazole [Omeprazole] 20 MG Capsule.Dr) PO SCH (09:00)
[2022-04-18] MEDS: FLUTICASONE 50MCG/SPRAY NASAL 16GM EA NOSTRIL SCH (09:30)
[2022-04-18] MEDS: CEFEPIME 2 GM in SODIUM CHLORIDE 0.9% 100 ML IVPB SCH ×3 (09:30→23:20)
[2022-04-18] MEDS: DICLOFENAC SODIUM GEL 100 GM TUBE TOPICAL SCH ×2 (09:30→22:20)
[2022-04-18] MEDS: METOPROLOL TARTRATE 50 MG TAB PO SCH (09:31)
[2022-04-18] MEDS: BACLOFEN 10 MG TAB PO SCH ×2 (09:31→21:10)
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
[2022-04-18] MEDS: ACETAMINOPHEN TAB 325 MG TAB PO PRN (09:39)
[2022-04-18 11:11] LABS: Basophils % (A) 0 %; Eosinophils # (A) 0.1 k/uL (0-0.7); Eosinophils % (A) 1 %; Lymphocytes # (A) 0.6 k/uL (1.0-4.8); Lymphocytes % (A) 4 %; MCHC 31.8 g/dL (31.0-37.0); MCV 91.2 fL (80.0-100.0); Mean Platelet Volume 9.2; Monocytes # (A) 0.5 k/uL (0-1.0); Monocytes % (A) 3 %; Neutrophils # (A) 14.3 k/uL (1.3-7.7); Neutrophils % (A) 91 %; Platelet Count 168 k/uL (150-450); RDW 14.8 % (11.5-15.5); WBC 15.7 k/uL (3.8-10.6)
[2022-04-18 11:22] LABS: Albumin 3.5 g/dL (3.5-5.0); Calcium 8.2 mg/dL (8.4-10.2); Potassium 3.8 mmol/L (3.5-5.1); Total Bilirubin 0.5 mg/dL (0.2-1.3); Total Protein 6.3 g/dL (6.3-8.2)
[2022-04-18] MEDS: allopurinoL 100 MG TAB PO SCH (11:29)
[2022-04-18] MEDS: CYANOCOBALAMIN 500 MCG TAB PO SCH (11:30)
[2022-04-18] MEDS: ARIPiprazole 15 MG TAB PO SCH (11:30)
[2022-04-18] MEDS: GABAPENTIN 300 MG CAP PO SCH ×3 (11:30→21:11)
[2022-04-18] MEDS: ISOSORBIDE MONONITRATE ER 30 MG TAB.ER.24H PO SCH (11:30)
[2022-04-18] MEDS: lamoTRIgine 25 MG TAB PO SCH (11:30)
--- NOTE | 2022-04-18 11:40 | P.CRDCN ---
History of Present Illness Consult date: 04/18/22 Reason for Consult (text): Chest pain, elevated troponin Chief complaint: UTI, sepsis, renal insufficiency History of present illness: This is Sean Campbell NP, I'm dictating on behalf of Dr. Sepulveda's H&P and A&P The patient was interviewed and examined. HPI: Patient is a pleasant 61-year-old male who initially presented to the hospital with urinary tract infection and sepsis, and was found to have an elevated troponin and complaints of chest pain. Patient is a past cardiac history significant for hypertension, cardiovascular disease, hyperlipidemia, hypothyroidism, and she is to leave the brain status post craniotomy. Patient states he felt very hot at the [facility] care facility where he lives, and temp was taken and was found to be in the 102.2. Patient reports he also felt weak, as well as short of breath. Today he states that he has felt better in the past, and says that he's having chest pain, when he points to the area of the chest pain, he points to his belly, which is confirmed on palpation secondary to the area being soft with no underlying ribs noted. Patient appreciates no other pain anywhere else. He does complain of some shortness of breath, and has noted expiratory wheezing. ROS: [No fever, chills, or rigors] [no cough, phlegm, or expectoration] [no nausea, vomiting, or diarrhea] [no hematuria, dysuria] [no musculoskelatal complaints] [no strokes or seizures] [no skin lesions] EXAMINATION: GENERAL: Well-appearing, well-nourished and in no acute distress. NECK: Supple without JVD or thyromegaly. LUNGS: Expiratory wheezing noted throughout all lung ramirez. Respiration equal and unlabored. No rales or rhonchi. HEART: Regular rate and rhythm without murmurs, rubs or gallops. S1 and S2 heard. EXTREMITIES: Normal range of motion, no edema. No clubbing or cyanosis. Peripheral pulses intact and strong. REVIEW OF LABS, ECG & MEDICAL DATA: LABS: White count 15.7, hemoglobin 13, platelets 168, sodium 138, potassium 3.8, BUN 20, creatinine 1.19, serial troponins 0.073, 0.087, 0.067 EKG: Sinus tachycardia, no ST elevations, no T-wave inversions IMAGING: Chest x-ray dated 04/17/2022 demonstrates no evidence for acute pulmonary disease. VITALS: Temp 100.8, pulse 90, respirations 18, blood pressure 134/65, O2 saturation 93% on room air IMPRESSION: 1. UTI 2. Sepsis 3. Acute kidney injury 4. Hypertension PLAN: Agree with echocardiogram that has been ordered by medicine Elevated troponin is likely secondary to sepsis and acute kidney injury. Troponins are trending down. Recommend gentle fluid resuscitation No indication for stress test or cardiac cath at this time Thank you for the consult and allowing us to participate in the care of this patient. If further recommendations are needed please do not hesitate to reconsult us. Past Medical History Past Medical History: CVA/TIA, GERD/Reflux, Hyperlipidemia, Hypertension, Osteoarthritis (OA), Prostate Disorder, Thyroid Disorder Additional Past Medical History / Comment(s): CVA with left sided deficits. Indwelling mohr catheter, neuromuscular dysfunction of bladder. Hx Epilepsy, no seizures since 2018. Hypothyroid. History of Any Multi-Drug Resistant Organisms: VRE Date of last positivie culture/infection: 2018 MDRO Source:: unknown Past Surgical History: Unable to Obtain Past Anesthesia/Blood Transfusion Reactions: No Reported Reaction Date of Last Stent Placement:: march 2022 Past Psychological History: Anxiety, Bipolar, Depression Smoking Status: Unknown if ever smoked Past Alcohol Use History: Rare Past Drug Use History: None Reported - Past Family History Mother Family Medical History: Unable to Obtain Medications and Allergies Home Medications Medication Instructions Recorded Confirmed Type ARIPiprazole 15 mg PO DAILY 03/03/22 04/17/22 History Acetaminophen [Tylenol] 650 mg PO Q4H PRN 03/03/22 04/17/22 History Albuterol Sulfate [Albuterol 2 puff PO RT-QID 03/03/22 04/17/22 History Sulfate Hfa] Artificial Tears-Hypromellose 1 drops BOTH EYES BID@0600,1700 03/03/22 04/17/22 History [Artificial Tear Drops] Artificial Tears-Hypromellose 1 drops BOTH EYES QID PRN 03/03/22 04/17/22 History [Artificial Tear Drops] Baclofen [Lioresal] 10 mg PO BID 03/03/22 04/17/22 History Bismuth Subsalicylate 30 ml PO Q4H PRN 03/03/22 04/17/22 History [Pepto-Bismol] Butalb/Acetaminophen/Caffeine 1 cap PO BID PRN 03/03/22 04/17/22 History [Fioricet 50-300-40 mg Capsule] Cyanocobalamin [Vitamin B-12] 500 mcg PO DAILY 03/03/22 04/17/22 History Fluticasone Propionate [Flonase 1 spray EA NOSTRIL DAILY 03/03/22 04/17/22 History Allergy Relief] Folic Acid 1 mg PO DAILY 03/03/22 04/17/22 History Furosemide [Lasix] 40 mg PO BID@0600,1300 03/03/22 04/17/22 History Gabapentin 600 mg PO TID@0900,1300,2100 03/03/22 04/17/22 History Galcanezumab-Gnlm [Emgality 120 mg SQ Q28D 03/03/22 04/17/22 History Syringe] Ibuprofen 600 mg PO Q6H PRN 03/03/22 04/17/22 History Isosorbide Mononitrate ER [Imdur] 30 mg PO DAILY 03/03/22 04/17/22 History Levothyroxine Sodium 25 mcg PO DAILY@0600 03/03/22 04/17/22 History Loperamide HCl [Loperamide] 2 mg PO Q6H PRN 03/03/22 04/17/22 History Loratadine 10 mg PO DAILY 03/03/22 04/17/22 History Lovastatin [Mevacor] 20 mg PO HS 03/03/22 04/17/22 History Metoprolol Tartrate [Lopressor] 50 mg PO BID 03/03/22 04/17/22 History Montelukast Sodium [Singulair] 10 mg PO HS 03/03/22 04/17/22 History PARoxetine HCL [Paxil] 10 mg PO DAILY 03/03/22 04/17/22 History PARoxetine HCL [Paxil] 40 mg PO DAILY 03/03/22 04/17/22 History Potassium Chloride [Klor-Con M20] 20 meq PO BID@0600,1300 03/03/22 04/17/22 History Refresh P.M. Ointment 1 applic BOTH EYES HS 03/03/22 04/17/22 History Sennosides [Senokot] 2 tab PO DAILY 03/03/22 04/17/22 History Tamsulosin HCl [Flomax] 0.4 mg PO BID 03/03/22 04/17/22 History allopurinoL [Zyloprim] 100 mg PO DAILY 03/03/22 04/17/22 History guaiFENesin [guaiFENesin Oral 20 ml PO Q4H PRN 03/03/22 04/17/22 History Solution] lamoTRIgine [LaMICtal] 50 mg PO DAILY 03/03/22 04/17/22 History polyethylene glycoL 3350 [Miralax] 17 gm PO DAILY 03/03/22 04/17/22 History Diclofenac Sodium [Voltaren 1 applic TOPICAL BID 04/17/22 04/17/22 History Arthritis Pain 1% Gel] Omeprazole 20 mg PO DAILY 04/17/22 04/17/22 History Thioridazine HCl [Mellaril] 25 mg PO QID 04/17/22 04/17/22 History Ubrogepant [Ubrelvy] 100 mg PO BID PRN 04/17/22 04/17/22 History Allergies Allergy/AdvReac Type Severity Reaction Status Date / Time No Known Allergies Allergy Verified 04/17/22 12:32 Physical Exam Vitals: Vital Signs Temp Pulse Resp BP BP Pulse Ox 04/18/22 08:00 100.8 F H 90 18 134/65 93 L 04/18/22 05:55 100.8 F H 04/18/22 03:42 98.4 F 107 H 22 111/51 92 L 04/18/22 02:00 18 04/17/22 23:42 98.5 F 115 H 18 149/80 91 L 04/17/22 20:00 21 04/17/22 19:56 101.8 F H 110 H 21 130/74 94 L 04/17/22 18:14 102.7 F H 04/17/22 15:45 112 H 19 161/65 94 L 04/17/22 15:01 98.5 F 04/17/22 14:00 92 20 04/17/22 12:00 98.7 F 92 20 92/35 81/50 93 L Intake and Output 04/17/22 04/18/22 04/18/22 22:59 06:59 14:59 Intake Total 120 960 236 Output Total 200 Balance -80 960 236 Intake: Oral 120 960 236 Output: Urine 200 Stool 0 Urine/Stool Mix 0 Emesis 0 Other: Voiding Method Indwelling Catheter Indwelling Catheter # Voids 0 # Bowel Movements 0 Results 04/18/22 10:56 04/18/22 10:56 Cardiac Enzymes 04/17/22 04/17/22 04/18/22 Range/Units 11:28 14:35 10:56 AST 35 (17-59) U/L Troponin I 0.087 H* 0.067 H* (0.000-0.034) ng/mL CBC 04/18/22 Range/Units 10:56 WBC 15.7 H (3.8-10.6) k/uL RBC 4.50 (4.30-5.90) m/uL Hgb 13.0 (13.0-17.5) gm/dL Hct 41.0 (39.0-53.0) % Plt Count 168 (150-450) k/uL Comprehensive Metabolic Panel 04/18/22 Range/Units 10:56 Sodium 138 (137-145) mmol/L Potassium 3.8 (3.5-5.1) mmol/L Chloride 103 (98-107) mmol/L Carbon Dioxide 28 (22-30) mmol/L BUN 20 (9-20) mg/dL Creatinine 1.19 (0.66-1.25) mg/dL Glucose 122 H (74-99) mg/dL Calcium 8.2 L (8.4-10.2) mg/dL AST 35 (17-59) U/L ALT 14 (4-49) U/L Alkaline Phosphatase 95 (38-126) U/L Total Protein 6.3 (6.3-8.2) g/dL Albumin 3.5 (3.5-5.0) g/dL Current Medications Generic Name Dose Route Start Last Admin Trade Name Freq PRN Reason Stop Dose Admin Acetaminophen 650 mg 04/17/22 13:17 04/18/22 09:39 Acetaminophen Tab 325 Mg Tab PO 650 mg Q4H PRN Administration Mild Pain/Fever Acetaminophen/Butalbital/Caffeine 1 each 04/17/22 13:17 Butalb/Apap/Caff 50-325-40mg Tab PO BID PRN Headache Pain Albuterol Sulfate 2.5 mg 04/17/22 16:00 04/18/22 11:15 Albuterol Nebulized 2.5 Mg/3 Ml INHALATION Not Given RT-QID [facility] Allopurinol 100 mg 04/18/22 09:00 Allopurinol 100 Mg Tab PO DAILY [facility] Aripiprazole 15 mg 04/18/22 09:00 Aripiprazole 15 Mg Tab PO DAILY [facility] Artificial Tears 1 drops 04/17/22 17:00 04/18/22 05:56 Artificial Tears-Hypromellose Drops 15 Ml Btl BOTH EYES 1 drops BID@0600,1700 [facility] Administration Artificial Tears 1 drops 04/17/22 13:17 Artificial Tears-Hypromellose Drops 15 Ml Btl BOTH EYES QID PRN Dry Eyes Atorvastatin Calcium 10 mg 04/17/22 21:00 04/17/22 20:42 Atorvastatin 10 Mg Tab PO 10 mg HS [facility] Administration Baclofen 10 mg 04/17/22 21:00 04/18/22 09:31 Baclofen 10 Mg Tab PO 10 mg BID [facility] Administration Cyanocobalamin 500 mcg 04/18/22 09:00 Cyanocobalamin 500 Mcg Tab PO DAILY [facility] Diclofenac Sodium 2 gm 04/17/22 21:00 04/18/22 09:30 Diclofenac Sodium Gel 100 Gm Tube TOPICAL 2 gm BID [facility] Administration Protocol Enoxaparin Sodium 40 mg 04/18/22 09:00 Enoxaparin 40 Mg/0.4 Ml Syringe SQ DAILY [facility] Fluticasone Propionate 1 spray 04/18/22 09:00 04/18/22 09:30 Fluticasone 50mcg/[place] Nasal 16gm EA NOSTRIL 1 spray DAILY [facility] Administration Folic Acid 1 mg 04/18/22 09:00 Folic Acid 1 Mg Tab PO DAILY [facility] Gabapentin 600 mg 04/17/22 21:00 04/17/22 20:43 Gabapentin 300 Mg Cap PO 600 mg TID@0900,1300,2100 [facility] Administration Guaifenesin 400 mg 04/17/22 13:17 Guaifenesin Syrup 100mg/5ml 200 Mg/10 Ml Cup PO Q4H PRN Cough Cefepime HCl 2 gm/ Sodium 100 mls @ 25 mls/hr 04/17/22 16:00 04/18/22 09:30 Chloride IVPB 25 mls/hr Q8HR [facility] Administration Protocol Sodium Chloride 1,000 mls @ 75 mls/hr 04/17/22 13:15 04/18/22 04:50 Saline 0.9% IV Not Given .[id number] [facility] Isosorbide Mononitrate 30 mg 04/18/22 09:00 Isosorbide Mononitrate Er 30 Mg Tab.Er.24h PO DAILY [facility] Lamotrigine 50 mg 04/18/22 09:00 Lamotrigine 25 Mg Tab PO DAILY [facility] Levothyroxine Sodium 25 mcg 04/18/22 06:00 04/18/22 05:56 Levothyroxine 25 Mcg Tab PO 25 mcg DAILY@0600 [facility] Administration Loperamide HCl 2 mg 04/17/22 13:17 Loperamide 2 Mg Cap PO Q6H PRN Diarrhea Loratadine 10 mg 04/18/22 09:00 Loratadine 10 Mg Tab PO DAILY [facility] Metoprolol Tartrate 50 mg 04/17/22 21:00 04/18/22 09:31 Metoprolol Tartrate 50 Mg Tab PO 50 mg BID [facility] Administration Montelukast Sodium 10 mg 04/17/22 21:00 04/17/22 20:43 Montelukast 10 Mg Tab PO 10 mg HS [facility] Administration Multi-Ingred Cream/Lotion/Oil/Oint 1 applic 04/17/22 21:00 04/17/22 19:32 Artificial Tears Ointment 3.5 Gm Tube BOTH EYES Not Given HS [facility] Non-Formulary Medication 25 mg 04/17/22 18:00 04/17/22 19:32 Thioridazine Hcl [Mellaril] PO Not Given QID [facility] Non-Formulary Medication 100 mg 04/17/22 13:17 Ubrogepant [Ubrelvy] PO BID PRN Migraine Headache Ondansetron HCl 4 mg 04/18/22 07:52 04/18/22 09:30 Ondansetron 4 Mg/2 Ml Vial IVP 4 mg Q6HR PRN Administration Nausea And Vomiting Pantoprazole Sodium 40 mg 04/18/22 07:30 04/18/22 05:56 Pantoprazole 40 Mg Tablet PO 40 mg [id number] [facility] Administration Paroxetine HCl 50 mg 04/18/22 09:00 Paroxetine 10 Mg Tab PO DAILY [facility] Polyethylene Glycol 17 gm 04/18/22 09:00 Polyethylene Glycol 3350 17 Gm Powd.Pack PO DAILY [facility] Potassium Chloride 20 meq 04/18/22 06:00 04/18/22 05:56 Potassium Chloride Er 20 Meq Tab.Er PO 20 meq BID@0600,1300 [facility] Administration Senna 17.2 mg 04/18/22 09:00 Sennosides 8.6 Mg Tab PO DAILY [facility] Tamsulosin HCl 0.4 mg 04/17/22 21:00 04/17/22 20:43 Tamsulosin 0.4 Mg Cap.Er.24h PO 0.4 mg BID [facility] Administration Intake and Output 04/17/22 04/18/22 04/18/22 22:59 06:59 14:59 Intake Total 120 960 236 Output Total 200 Balance -80 960 236 Intake: Oral 120 960 236 Output: Urine 200 Stool 0 Urine/Stool Mix 0 Emesis 0 Other: Voiding Method Indwelling Catheter Indwelling Catheter # Voids 0 # Bowel Movements 0 04/18/22 10:56 04/18/22 10:56
[2022-04-18] MEDS ORDERED: METOCLOPRAMIDE 5 MG/ML 2 ML VIAL IVP PRN (11:46)
[2022-04-18] MEDS: SENNOSIDES 8.6 MG TAB PO SCH (11:58)
[2022-04-18] MEDS: TAMSULOSIN 0.4 MG CAP.ER.24H PO SCH ×2 (11:58→21:11)
[2022-04-18] MEDS: THIORIDAZINE HCL PO SCH ×4 (11:58→21:11)
[2022-04-18] MEDS: PARoxetine 10 MG TAB PO SCH (11:58)
[2022-04-18] MEDS: LORATADINE 10 MG TAB PO SCH (11:59)
[2022-04-18] MEDS: polyethylene glycoL 3350 17 GM POWD.PACK PO SCH (11:59)
[2022-04-18] MEDS: FOLIC ACID 1 MG TAB PO SCH (11:59)
--- NOTE | 2022-04-18 12:30 | XR ---
EXAMINATION TYPE: XR abdomen 1V DATE OF EXAM: 04/18/2022 COMPARISON: NONE HISTORY: Pain TECHNIQUE: Supine and upright views of the abdomen are submitted. FINDINGS: Multiple dilated loops of small bowel measuring up to 5.6 cm. Air is seen within the colon. Findings may reflect early complete versus partial small bowel obstruction. Correlate clinically and progress studies are recommended. Gas and fecal material is seen in non-distended colon. No convincing evidence for pneumoperitoneum. No unusual calcifications. The lung bases are clear. The osseous structures are intact. IMPRESSION: 1. Correlate for early complete versus partial small bowel obstruction. Correlate clinically and pro angy studies are recommended.
--- NOTE | 2022-04-18 17:10 | XR ---
EXAMINATION TYPE: XR chest 1V portable DATE OF EXAM: 04/18/2022 COMPARISON: 04/17/2022 HISTORY: Check tube placement TECHNIQUE: Single view FINDINGS: There is a nasogastric tube tip appears in the stomach. There is no sign of heart failure n or confluent pneumonic infiltrate. Heart size is normal. There are chest leads. Costophrenic angles a re clear. IMPRESSION: No sign of cardiopulmonary disease. NG tube is in the stomach.
[2022-04-18] MEDS: ENOXAPARIN 40 MG/0.4 ML SYRINGE SQ SCH (17:28)
[2022-04-18] MEDS ORDERED: ACETAMINOPHEN IV (For NPO) 1,000 MG in EMPTY BAG 1 BAG IVPB PRN (20:52)
[2022-04-18] MEDS: ATORVASTATIN 10 MG TAB PO SCH (21:10)
[2022-04-18] MEDS: MONTELUKAST 10 MG TAB PO SCH (21:11)
[2022-04-18] MEDS: ARTIFICIAL TEARS OINTMENT 3.5 GM TUBE BOTH EYES SCH (22:23)
[2022-04-18] MEDS: METOPROLOL TARTRATE 5 MG/5 ML VIAL IVP SCH (23:21)
[2022-04-19] MEDS: SODIUM CHLORIDE 0.9% 1,000 ML IV SCH ×2 (04:13→17:56)
[2022-04-19] MEDS: ARTIFICIAL TEARS-HYPROMELLOSE DROPS 15 ML BTL BOTH EYES SCH ×2 (06:15→16:09)
[2022-04-19] MEDS: METOPROLOL TARTRATE 5 MG/5 ML VIAL IVP SCH ×4 (06:16→23:34)
[2022-04-19] MEDS: POTASSIUM CHLORIDE ER 20 MEQ TAB.ER PO SCH ×2 (06:24→12:31)
[2022-04-19] MEDS: PANTOPRAZOLE 40 MG TABLET PO SCH (06:24)
[2022-04-19 07:59] LABS: Basophils % (A) 0 %; Eosinophils # (A) 0.1 k/uL (0-0.7); Eosinophils % (A) 1 %; HCT 40.9 % (39.0-53.0); HGB 12.9 gm/dL (13.0-17.5); Hypochromasia Slight; Lymphocytes # (A) 0.6 k/uL (1.0-4.8); Lymphocytes % (A) 5 %; MCH 29.4 pg (25.0-35.0); MCHC 31.6 g/dL (31.0-37.0); MCV 92.9 fL (80.0-100.0); Mean Platelet Volume 9.8; Monocytes # (A) 0.7 k/uL (0-1.0); Monocytes % (A) 5 %; Neutrophils # (A) 12.5 k/uL (1.3-7.7); Neutrophils % (A) 89 %; Platelet Count 190 k/uL (150-450); RDW 14.7 % (11.5-15.5); WBC 14.1 k/uL (3.8-10.6)
[2022-04-19] MEDS: ALBUTEROL NEBULIZED 2.5 MG/3 ML INHALATION SCH ×4 (08:02→20:09)
[2022-04-19 08:22] LABS: Albumin 3.5 g/dL (3.5-5.0); Calcium 8.2 mg/dL (8.4-10.2); Total Bilirubin 0.5 mg/dL (0.2-1.3); Total Protein 6.5 g/dL (6.3-8.2)
[2022-04-19] MEDS ORDERED: BENZOCAINE SPRAY 1 CAN MUCOUS MEM PRN (08:22)
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
[2022-04-19] MEDS: CEFEPIME 2 GM in SODIUM CHLORIDE 0.9% 100 ML IVPB SCH ×3 (09:32→23:34)
[2022-04-19] MEDS: ENOXAPARIN 40 MG/0.4 ML SYRINGE SQ SCH (09:32)
[2022-04-19] MEDS: FLUTICASONE 50MCG/SPRAY NASAL 16GM EA NOSTRIL SCH (09:33)
[2022-04-19] MEDS: DICLOFENAC SODIUM GEL 100 GM TUBE TOPICAL SCH ×2 (09:33→20:33)
[2022-04-19] MEDS: LORATADINE 10 MG TAB PO SCH (10:05)
[2022-04-19] MEDS: ISOSORBIDE MONONITRATE ER 30 MG TAB.ER.24H PO SCH (10:05)
[2022-04-19] MEDS: GABAPENTIN 300 MG CAP PO SCH ×3 (10:05→20:22)
[2022-04-19] MEDS: CYANOCOBALAMIN 500 MCG TAB PO SCH (10:05)
[2022-04-19] MEDS: BACLOFEN 10 MG TAB PO SCH ×2 (10:05→20:22)
[2022-04-19] MEDS: allopurinoL 100 MG TAB PO SCH (10:05)
[2022-04-19] MEDS: FOLIC ACID 1 MG TAB PO SCH (10:05)
[2022-04-19] MEDS: lamoTRIgine 25 MG TAB PO SCH (10:05)
[2022-04-19] MEDS: ARIPiprazole 15 MG TAB PO SCH (10:05)
--- NOTE | 2022-04-19 10:28 | CA ---
Transthoracic Echo Report Name: Baljit Peterson Age: 61 Gender: M : 1960 Exam Date: 04/19/2022 09:08 Exam Location: [place] [facility] Ht (in): 74 Wt (lb): 321 Ordering Physician: Daniel You MD Attending/Referring Phys: Emergency Vehicle Operations Instructor Lizzie Hwang RDCS Procedure CPT: Indications: dyspnea Cardiac Hx: Technical Quality: Fair Contrast 1: Total Dose (mL): Contrast 2: Total Dose (mL): MEASUREMENTS (Male / Female) Normal Values 2D ECHO LV Diastolic Diameter PLAX 4.8 cm 4.2 - 5.9 / 3.9 - 5.3 cm LV Systolic Diameter PLAX 3.8 cm IVS Diastolic Thickness 1.5 cm 0.6 - 1.0 / 0.6 - 0.9 cm LVPW Diastolic Thickness 1.3 cm 0.6 - 1.0 / 0.6 - 0.9 cm LV Relative Wall Thickness 0.6 RV Internal Dim ED PLAX 3.7 cm LA Systolic Diameter LX 3.8 cm 3.0 - 4.0 / 2.7 - 3.8 cm M-MODE Aortic Root Diameter MM 3.6 cm MV E Point Septal Separation 0.2 cm AV Cusp Separation MM 2.8 cm DOPPLER MV Area PHT 3.4 cm??? Mitral E Point Velocity 85.3 cm/s Mitral A Point Velocity 68.0 cm/s Mitral E to A Ratio 1.3 MV Deceleration Time 223.5 ms TR Peak Velocity 321.7 cm/s TR Peak Gradient 41.4 mmHg Right Ventricular Systolic Press 45.9 mmHg FINDINGS Left Ventricle Left ventricular ejection fraction is estimated at 55-60 %. Left ventricular cavity size normal. Moderate concentric left ventricular hypertrophy. Right Ventricle Mild right ventricular dilatation. Moderate pulmonary hypertension. Right Atrium Normal right atrial size. Left Atrium Normal left atrial size. No evidence for an atrial septal defect. Mitral Valve Structurally normal mitral valve. No mitral stenosis, regurgitation or prolapse. Aortic Valve Trileaflet aortic valve. No aortic valve stenosis or regurgitation. Tricuspid Valve Mild tricuspid regurgitation. Pulmonic Valve Trace pulmonic regurgitation. Pericardium Normal pericardium. No pericardial effusion. Aorta Normal size aortic root and proximal ascending aorta. CONCLUSIONS Moderate LVH Left ventricular ejection fraction 55-60% Pulmonary hypertension, RVSP 46 Mild tricuspid regurgitation No pericardial effusion Previewed by: Dr. Daniel Griggs DO (Electronically Signed) Final Date: 19 April 2022 10:27
[2022-04-19] MEDS: PARoxetine 10 MG TAB PO SCH (10:30)
[2022-04-19] MEDS: polyethylene glycoL 3350 17 GM POWD.PACK PO SCH (10:30)
[2022-04-19] MEDS: TAMSULOSIN 0.4 MG CAP.ER.24H PO SCH ×2 (10:31→20:22)
[2022-04-19] MEDS: THIORIDAZINE HCL PO SCH ×4 (10:31→20:22)
[2022-04-19] MEDS: SENNOSIDES 8.6 MG TAB PO SCH (10:31)
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
[2022-04-19] MEDS: LEVOTHYROXINE 25 MCG TAB PO SCH (11:13)
--- NOTE | 2022-04-19 11:42 | US ---
EXAMINATION TYPE: US abdomen complete DATE OF EXAM: 04/19/2022 COMPARISON: NONE CLINICAL HISTORY: Fever. Pain bowel obstruction uti diarrhea. EXAM MEASUREMENTS: Liver Length: 20.5 cm Gallbladder Wall: Surgically absent CBD: .8 cm Spleen: 14 cm Right Kidney: 13.2 x 5.1 x 5.1 cm Left Kidney: 14.9 x 6.7 x 4.8 cm Pancreas: Obscured by bowel gas Liver: Increased attenuation Gallbladder: Surgically absent Evidence for sonographic Malhotra's sign: no CBD: wnl Spleen: Limited Right Kidney: No hydronephrosis or masses seen Left Kidney: No hydronephrosis or masses seen Upper IVC: wnl Abd Aorta: wnl The intrahepatic portion of the IVC and proximal abdominal aorta are within normal limits. There is no evidence of cholelithiasis. Common bile duct is unremarkable. The visualized portions of the delgado creas are homogenous. The spleen is unremarkable. Kidneys are symmetric and free of hydronephrosis. No renal lesions are seen. IMPRESSION: Mild hepatic steatosis.
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
--- NOTE | 2022-04-19 18:59 | XR ---
EXAMINATION TYPE: XR chest 1V portable DATE OF EXAM: 04/19/2022 COMPARISON: 04/18/2022 HISTORY: Tube placement TECHNIQUE: Single view FINDINGS: Heart is enlarged. There is nasogastric tube folded on itself in the mid esophagus. The anson gs are clear of consolidation. No heart failure. There are chest leads. IMPRESSION: There is malposition of the nasogastric tube which is folded on itself in the mid esophag us. No pulmonary consolidation or heart failure.
[2022-04-19] MEDS: MONTELUKAST 10 MG TAB PO SCH (20:22)
[2022-04-19] MEDS: ATORVASTATIN 10 MG TAB PO SCH (20:22)
[2022-04-19] MEDS: ARTIFICIAL TEARS OINTMENT 3.5 GM TUBE BOTH EYES SCH (20:53)
[2022-04-20] MEDS: PANTOPRAZOLE 40 MG TABLET PO SCH (04:29)
[2022-04-20] MEDS: POTASSIUM CHLORIDE ER 20 MEQ TAB.ER PO SCH ×2 (04:29→14:05)
[2022-04-20] MEDS: ARTIFICIAL TEARS-HYPROMELLOSE DROPS 15 ML BTL BOTH EYES SCH ×2 (05:10→18:08)
[2022-04-20] MEDS: METOPROLOL TARTRATE 5 MG/5 ML VIAL IVP SCH ×3 (05:10→18:22)
[2022-04-20] MEDS: SODIUM CHLORIDE 0.9% 1,000 ML IV SCH ×2 (05:24→20:41)
[2022-04-20] MEDS: allopurinoL 100 MG TAB PO SCH (07:49)
[2022-04-20] MEDS: PARoxetine 10 MG TAB PO SCH (07:50)
[2022-04-20] MEDS: BACLOFEN 10 MG TAB PO SCH ×2 (07:50→20:39)
[2022-04-20] MEDS: TAMSULOSIN 0.4 MG CAP.ER.24H PO SCH ×2 (07:50→20:38)
[2022-04-20] MEDS: LORATADINE 10 MG TAB PO SCH (07:50)
[2022-04-20] MEDS: FOLIC ACID 1 MG TAB PO SCH (07:50)
[2022-04-20] MEDS: ARIPiprazole 15 MG TAB PO SCH (07:50)
[2022-04-20] MEDS: GABAPENTIN 300 MG CAP PO SCH ×3 (07:50→20:38)
[2022-04-20] MEDS: CYANOCOBALAMIN 500 MCG TAB PO SCH (07:50)
[2022-04-20] MEDS: ISOSORBIDE MONONITRATE ER 30 MG TAB.ER.24H PO SCH (07:50)
[2022-04-20] MEDS: polyethylene glycoL 3350 17 GM POWD.PACK PO SCH (07:50)
[2022-04-20] MEDS: FLUTICASONE 50MCG/SPRAY NASAL 16GM EA NOSTRIL SCH (07:50)
[2022-04-20] MEDS: SENNOSIDES 8.6 MG TAB PO SCH (07:50)
[2022-04-20] MEDS: lamoTRIgine 25 MG TAB PO SCH (07:50)
[2022-04-20] MEDS: THIORIDAZINE HCL PO SCH ×4 (07:51→20:36)
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
[2022-04-20] MEDS: ENOXAPARIN 40 MG/0.4 ML SYRINGE SQ SCH (08:10)
[2022-04-20] MEDS: DICLOFENAC SODIUM GEL 100 GM TUBE TOPICAL SCH ×2 (08:12→20:40)
[2022-04-20] MEDS: ALBUTEROL NEBULIZED 2.5 MG/3 ML INHALATION SCH ×4 (08:42→20:21)
[2022-04-20 08:45] LABS: Basophils % (A) 0 %; Eosinophils # (A) 0.1 k/uL (0-0.7); Eosinophils % (A) 1 %; HCT 38.1 % (39.0-53.0); HGB 11.6 gm/dL (13.0-17.5); Hypochromasia Slight; Lymphocytes # (A) 0.6 k/uL (1.0-4.8); Lymphocytes % (A) 7 %; MCH 28.4 pg (25.0-35.0); MCHC 30.5 g/dL (31.0-37.0); MCV 93.1 fL (80.0-100.0); Mean Platelet Volume 9.9; Monocytes # (A) 0.5 k/uL (0-1.0); Monocytes % (A) 6 %; Neutrophils % (A) 83 %; Platelet Count 187 k/uL (150-450); RBC 4.09 m/uL (4.30-5.90); RDW 14.6 % (11.5-15.5); WBC 8.4 k/uL (3.8-10.6)
[2022-04-20 08:58] LABS: African American GFR (CKD) >90 (>60 ml/min/1.73 sqM); Anion Gap 6 mmol/L; Blood Urea Nitrogen 20 mg/dL (9-20); Calcium 7.6 mg/dL (8.4-10.2); Carbon Dioxide 27 mmol/L (22-30); Chloride 110 mmol/L (98-107); Glucose 102 mg/dL (74-99); Non-African American GFR(CKD) >90 (>60 ml/min/1.73 sqM); Potassium 3.7 mmol/L (3.5-5.1); Sodium 143 mmol/L (137-145)
[2022-04-20] MEDS: CEFEPIME 2 GM in SODIUM CHLORIDE 0.9% 100 ML IVPB SCH (10:28)
[2022-04-20] MEDS ORDERED: LEVOTHYROXINE IVP 100 MCG/5 ML VIAL IV SCH (11:30)
--- NOTE | 2022-04-20 12:12 | P.PN ---
Subjective Progress Note Date: 04/20/22 Patient seen and examined at bedside. NG tube was removed yesterday. He states that he has had 3 bowel movements today. He has been passing gas. He denies any abdominal pain today. Objective - Vital Signs Vital signs: Vital Signs Temp 98.5 F 04/20/22 03:22 Pulse 86 04/20/22 08:50 Resp 18 04/20/22 08:00 BP 136/80 04/20/22 03:22 Pulse Ox 98 04/20/22 03:22 FiO2 Intake & Output 04/19/22 04/20/22 04/20/22 18:59 06:59 18:59 Output Total 1600 950 450 Balance -1600 -950 -450 Output: Gastric Drainage 650 Urine 950 950 450 Coude 400 Other: Voiding Method Indwelling Catheter Indwelling Catheter Indwelling Catheter # Bowel Movements 3 1 - Constitutional General appearance: Present: cooperative, no acute distress - Gastrointestinal Gastrointestinal Comment(s): Soft, nontender, mild distention, no rebound, no guarding - Musculoskeletal Musculoskeletal: Present: generalized weakness - Labs CBC & Chem 7: 04/20/22 08:16 04/20/22 08:16 Labs: Abnormal Lab Results - Last 24 Hours (Table) 04/20/22 04/20/22 Range/Units 08:16 08:16 RBC 4.09 L (4.30-5.90) m/uL Hgb 11.6 L (13.0-17.5) gm/dL Hct 38.1 L (39.0-53.0) % MCHC 30.5 L (31.0-37.0) g/dL Lymphocytes # 0.6 L (1.0-4.8) k/uL Chloride 110 H (98-107) mmol/L Glucose 102 H (74-99) mg/dL Calcium 7.6 L (8.4-10.2) mg/dL Microbiology - Last 24 Hours (Table) 04/17/22 08:44 Blood Culture - Preliminary Blood No Growth after 72 hours 04/17/22 08:44 Urine Culture - Final Urine,Voided Proteus mirabilis Assessment and Plan Plan: 61-year-old male with resolving ileus. We will advance patient's diet. Continue medical management for UTI.
[2022-04-20] MEDS: ATORVASTATIN 10 MG TAB PO SCH (20:39)
[2022-04-20] MEDS: MONTELUKAST 10 MG TAB PO SCH (20:39)
[2022-04-20] MEDS: ARTIFICIAL TEARS OINTMENT 3.5 GM TUBE BOTH EYES SCH (20:39)
[2022-04-20] MEDS: METOPROLOL TARTRATE 50 MG TAB PO SCH (23:25)
[2022-04-21] MEDS: LEVOTHYROXINE 25 MCG TAB PO SCH (06:19)
[2022-04-21] MEDS: POTASSIUM CHLORIDE ER 20 MEQ TAB.ER PO SCH ×2 (06:19→13:31)
[2022-04-21] MEDS: ARTIFICIAL TEARS-HYPROMELLOSE DROPS 15 ML BTL BOTH EYES SCH ×2 (06:19→18:15)
[2022-04-21] MEDS: PANTOPRAZOLE 40 MG TABLET PO SCH (06:19)
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
[2022-04-21] MEDS: ALBUTEROL NEBULIZED 2.5 MG/3 ML INHALATION SCH ×4 (08:33→19:48)
[2022-04-21] MEDS: polyethylene glycoL 3350 17 GM POWD.PACK PO SCH (09:00)
[2022-04-21] MEDS: ENOXAPARIN 40 MG/0.4 ML SYRINGE SQ SCH (09:01)
[2022-04-21] MEDS: lamoTRIgine 25 MG TAB PO SCH (09:01)
[2022-04-21] MEDS: METOPROLOL TARTRATE 50 MG TAB PO SCH ×2 (09:01→21:02)
[2022-04-21] MEDS: GABAPENTIN 300 MG CAP PO SCH ×3 (09:02→21:02)
[2022-04-21] MEDS: LORATADINE 10 MG TAB PO SCH (09:02)
[2022-04-21] MEDS: BACLOFEN 10 MG TAB PO SCH ×2 (09:03→21:02)
[2022-04-21] MEDS: SENNOSIDES 8.6 MG TAB PO SCH (09:03)
[2022-04-21] MEDS: allopurinoL 100 MG TAB PO SCH (09:03)
[2022-04-21] MEDS: ISOSORBIDE MONONITRATE ER 30 MG TAB.ER.24H PO SCH (09:03)
[2022-04-21] MEDS: TAMSULOSIN 0.4 MG CAP.ER.24H PO SCH ×2 (09:03→21:02)
[2022-04-21] MEDS: CYANOCOBALAMIN 500 MCG TAB PO SCH (09:04)
[2022-04-21] MEDS: FOLIC ACID 1 MG TAB PO SCH (09:04)
[2022-04-21] MEDS: PARoxetine 10 MG TAB PO SCH (09:05)
[2022-04-21] MEDS: ARIPiprazole 15 MG TAB PO SCH (09:06)
[2022-04-21] MEDS: DICLOFENAC SODIUM GEL 100 GM TUBE TOPICAL SCH ×2 (09:07→21:03)
[2022-04-21] MEDS: FLUTICASONE 50MCG/SPRAY NASAL 16GM EA NOSTRIL SCH (09:08)
[2022-04-21] MEDS: THIORIDAZINE HCL PO SCH ×4 (09:09→21:00)
[2022-04-21] MEDS: SODIUM CHLORIDE 0.9% 1,000 ML IV SCH ×2 (11:44→13:32)
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
--- NOTE | 2022-04-21 13:30 | P.PN ---
Subjective Progress Note Date: 04/21/22 Patient seen and examined at bedside. Having flatus and states he had 1 more bowel movement. Tolerating clear liquid diet. Denies abdominal pain, nausea, vomiting. Objective - Vital Signs Vital signs: Vital Signs Temp 97.8 F 04/21/22 11:31 Pulse 71 04/21/22 11:31 Resp 18 04/21/22 11:31 BP 133/61 04/21/22 11:31 Pulse Ox 99 04/21/22 11:31 FiO2 Intake & Output 04/20/22 04/21/22 04/21/22 18:59 06:59 18:59 Intake Total 780 320 Output Total 975 870 400 Balance -195 -260 -80 Intake: Oral 780 320 Output: Urine 975 870 400 Other: Voiding Method Indwelling Catheter Indwelling Catheter Indwelling Catheter - Constitutional General appearance: Present: cooperative, no acute distress - Respiratory Details: no difficulty with respiration - Gastrointestinal Gastrointestinal Comment(s): soft, nondistended, no rebound, no guarding - Psychiatric Psychiatric: Present: A&O x's 3 - Labs CBC & Chem 7: 04/20/22 08:16 04/20/22 08:16 Labs: Microbiology - Last 24 Hours (Table) 04/17/22 08:44 Blood Culture - Preliminary Blood No Growth after 96 hours 04/17/22 08:30 Blood Culture Gram Stain - Preliminary Blood Blood Culture - Preliminary Coagulase Negative Staph Assessment and Plan Plan: Patient seems to be improving. Bowel function is improving. Will advance diet. Currently, no signs of obstruction. Ileus appears to be resolving.
[2022-04-21] MEDS: MONTELUKAST 10 MG TAB PO SCH (21:02)
[2022-04-21] MEDS: ATORVASTATIN 10 MG TAB PO SCH (21:02)
[2022-04-21] MEDS: ARTIFICIAL TEARS OINTMENT 3.5 GM TUBE BOTH EYES SCH (21:03)
[2022-04-22] MEDS: PANTOPRAZOLE 40 MG TABLET PO SCH (05:48)
[2022-04-22] MEDS: POTASSIUM CHLORIDE ER 20 MEQ TAB.ER PO SCH ×2 (05:48→14:06)
[2022-04-22] MEDS: LEVOTHYROXINE 25 MCG TAB PO SCH (05:48)
[2022-04-22] MEDS: ARTIFICIAL TEARS-HYPROMELLOSE DROPS 15 ML BTL BOTH EYES SCH ×2 (05:49→17:42)
[2022-04-22] MEDS: ALBUTEROL NEBULIZED 2.5 MG/3 ML INHALATION SCH ×4 (07:33→20:45)
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
[2022-04-22] MEDS: METOPROLOL TARTRATE 50 MG TAB PO SCH ×2 (09:38→20:07)
[2022-04-22] MEDS: polyethylene glycoL 3350 17 GM POWD.PACK PO SCH (09:38)
[2022-04-22] MEDS: TAMSULOSIN 0.4 MG CAP.ER.24H PO SCH ×2 (09:38→20:07)
[2022-04-22] MEDS: LORATADINE 10 MG TAB PO SCH (09:38)
[2022-04-22] MEDS: SENNOSIDES 8.6 MG TAB PO SCH (09:38)
[2022-04-22] MEDS: BACLOFEN 10 MG TAB PO SCH ×2 (09:38→20:07)
[2022-04-22] MEDS: CYANOCOBALAMIN 500 MCG TAB PO SCH (09:38)
[2022-04-22] MEDS: PARoxetine 10 MG TAB PO SCH (09:38)
[2022-04-22] MEDS: ISOSORBIDE MONONITRATE ER 30 MG TAB.ER.24H PO SCH (09:38)
[2022-04-22] MEDS: ARIPiprazole 15 MG TAB PO SCH (09:38)
[2022-04-22] MEDS: allopurinoL 100 MG TAB PO SCH (09:38)
[2022-04-22] MEDS: lamoTRIgine 25 MG TAB PO SCH (09:38)
[2022-04-22] MEDS: GABAPENTIN 300 MG CAP PO SCH ×3 (09:38→20:07)
[2022-04-22] MEDS: ENOXAPARIN 40 MG/0.4 ML SYRINGE SQ SCH (09:39)
[2022-04-22] MEDS: DICLOFENAC SODIUM GEL 100 GM TUBE TOPICAL SCH ×2 (09:39→20:07)
[2022-04-22] MEDS: FLUTICASONE 50MCG/SPRAY NASAL 16GM EA NOSTRIL SCH (09:39)
[2022-04-22] MEDS: FOLIC ACID 1 MG TAB PO SCH (09:39)
[2022-04-22] MEDS: THIORIDAZINE HCL PO SCH ×4 (09:40→20:25)
[2022-04-22] MEDS: SODIUM CHLORIDE 0.9% 1,000 ML IV SCH (15:43)
[2022-04-22] MEDS: CEFDINIR 300 MG CAP PO SCH (20:06)
[2022-04-22] MEDS: ATORVASTATIN 10 MG TAB PO SCH (20:07)
[2022-04-22] MEDS: MONTELUKAST 10 MG TAB PO SCH (20:07)
[2022-04-22] MEDS: ARTIFICIAL TEARS OINTMENT 3.5 GM TUBE BOTH EYES SCH (20:08)
[2022-04-22 21:18] VITALS: TEMP 99.2
[2022-04-23 05:35] VITALS: BP 151/81; RESP 18
[2022-04-23] MEDS: LEVOTHYROXINE 25 MCG TAB PO SCH (05:52)
[2022-04-23] MEDS: POTASSIUM CHLORIDE ER 20 MEQ TAB.ER PO SCH (05:52)
[2022-04-23] MEDS: ARTIFICIAL TEARS-HYPROMELLOSE DROPS 15 ML BTL BOTH EYES SCH (05:53)
[2022-04-23] MEDS: PANTOPRAZOLE 40 MG TABLET PO SCH (05:53)
[2022-04-23] MEDS: ALBUTEROL NEBULIZED 2.5 MG/3 ML INHALATION SCH ×2 (09:04→12:17)
[2022-04-23 09:13] VITALS: PULSE 76
[2022-04-23] MEDS: polyethylene glycoL 3350 17 GM POWD.PACK PO SCH (09:27)
[2022-04-23] MEDS: CYANOCOBALAMIN 500 MCG TAB PO SCH (09:27)
[2022-04-23] MEDS: ISOSORBIDE MONONITRATE ER 30 MG TAB.ER.24H PO SCH (09:27)
[2022-04-23] MEDS: METOPROLOL TARTRATE 50 MG TAB PO SCH (09:27)
[2022-04-23] MEDS: ENOXAPARIN 40 MG/0.4 ML SYRINGE SQ SCH (09:27)
[2022-04-23] MEDS: SENNOSIDES 8.6 MG TAB PO SCH (09:28)
[2022-04-23] MEDS: CEFDINIR 300 MG CAP PO SCH (09:28)
[2022-04-23] MEDS: FOLIC ACID 1 MG TAB PO SCH (09:28)
[2022-04-23] MEDS: lamoTRIgine 25 MG TAB PO SCH (09:28)
[2022-04-23] MEDS: TAMSULOSIN 0.4 MG CAP.ER.24H PO SCH (09:28)
[2022-04-23] MEDS: BACLOFEN 10 MG TAB PO SCH (09:28)
[2022-04-23] MEDS: ARIPiprazole 15 MG TAB PO SCH (09:28)
[2022-04-23] MEDS: allopurinoL 100 MG TAB PO SCH (09:28)
[2022-04-23] MEDS: GABAPENTIN 300 MG CAP PO SCH (09:28)
[2022-04-23] MEDS: LORATADINE 10 MG TAB PO SCH (09:28)
[2022-04-23] MEDS: PARoxetine 10 MG TAB PO SCH (09:29)
[2022-04-23] MEDS: THIORIDAZINE HCL PO SCH (10:22)
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
[2022-04-23] MEDS: FLUTICASONE 50MCG/SPRAY NASAL 16GM EA NOSTRIL SCH (10:28)
[2022-04-23] MEDS: DICLOFENAC SODIUM GEL 100 GM TUBE TOPICAL SCH (10:28)
== END 2022-04-23 13:06 | DRG 698 ==
LOC: EC 08:28 → 3SCARD 10:03
PROVIDERS: ADMIT Internal Medicine; ATTEND Internal Medicine
PROC: 0D9670Z Drainage of Stomach with Drainage Device, Via Natural or Artificial Opening (ICD-10-PCS; principal; 2022-04-19)
DX: T83.518A Infection and inflammatory reaction due to other urinary catheter, initial encounter (principal); A41.89 Other specified sepsis; K56.609 Unspecified intestinal obstruction, unspecified as to partial versus complete obstruction; Z16.24 Resistance to multiple antibiotics; K56.7 Ileus, unspecified; F20.0 Paranoid schizophrenia; I50.32 Chronic diastolic (congestive) heart failure; G81.94 Hemiplegia, unspecified affecting left nondominant side; F31.30 Bipolar disorder, current episode depressed, mild or moderate severity, unspecified; Z16.11 Resistance to penicillins; Z16.29 Resistance to other single specified antibiotic; Z16.23 Resistance to quinolones and fluoroquinolones; N17.9 Acute kidney failure, unspecified; T85.528A Displacement of other gastrointestinal prosthetic devices, implants and grafts, initial encounter; I27.20 Pulmonary hypertension, unspecified; I11.0 Hypertensive heart disease with heart failure; K76.0 Fatty (change of) liver, not elsewhere classified; I36.1 Nonrheumatic tricuspid (valve) insufficiency; E03.9 Hypothyroidism, unspecified; E66.9 Obesity, unspecified; G40.909 Epilepsy, unspecified, not intractable, without status epilepticus; N31.2 Flaccid neuropathic bladder, not elsewhere classified; N40.0 Benign prostatic hyperplasia without lower urinary tract symptoms; B95.7 Other staphylococcus as the cause of diseases classified elsewhere; Y73.1 Therapeutic (nonsurgical) and rehabilitative gastroenterology and urology devices associated with adverse incidents; E78.5 Hyperlipidemia, unspecified; Y84.6 Urinary catheterization as the cause of abnormal reaction of the patient, or of later complication, without mention of misadventure at the time of the procedure; K21.9 Gastro-esophageal reflux disease without esophagitis; I87.8 Other specified disorders of veins; M19.90 Unspecified osteoarthritis, unspecified site; Z20.822 Contact with and (suspected) exposure to COVID-19; N40.1 Benign prostatic hyperplasia with lower urinary tract symptoms; R33.8 Other retention of urine; G47.33 Obstructive sleep apnea (adult) (pediatric); G43.909 Migraine, unspecified, not intractable, without status migrainosus; H04.123 Dry eye syndrome of bilateral lacrimal glands; R77.8 Other specified abnormalities of plasma proteins; B96.4 Proteus (mirabilis) (morganii) as the cause of diseases classified elsewhere; R07.89 Other chest pain; I25.10 Atherosclerotic heart disease of native coronary artery without angina pectoris; Z87.820 Personal history of traumatic brain injury; Z98.890 Other specified postprocedural states; Z80.8 Family history of malignant neoplasm of other organs or systems; Z83.0 Family history of human immunodeficiency virus [HIV] disease; Z82.49 Family history of ischemic heart disease and other diseases of the circulatory system; Z86.73 Personal history of transient ischemic attack (TIA), and cerebral infarction without residual deficits; Z79.899 Other long term (current) drug therapy; Z79.890 Hormone replacement therapy; Z86.19 Personal history of other infectious and parasitic diseases; Z98.61 Coronary angioplasty status; Z90.49 Acquired absence of other specified parts of digestive tract
CPT/HCPCS: 36415; 51702; 71045; 71046; 74018; 76700; 80048; 80053; 81001; 83605; 84484; 85025; 85379; 85610; 85730; 87040; 87077; 87086; 87186; 87502; 87635; 93005; 93306; 94640; 94760; 96365; 99285

== ENCOUNTER → 2022-07-21 | Outpatient (CLI) | payer MEDICARE, OTHER ==
--- NOTE | 2022-07-21 09:46 | CT ---
EXAMINATION TYPE: CT brain wo/w con DATE OF EXAM: 07/21/2022 COMPARISON: 08/03/2000 HISTORY: History of cerebrovascular accident CT DLP: 2325.60 mGycm Automated exposure control for dose reduction was used. CONTRAST: CT scan of the head is performed without and with IV Contrast, patient injected with 70 mL of Isovue 300. FINDINGS: Redemonstrated superior right frontoparietal craniectomy with some retained metal debris about the os teotomy defect and underlying brain parenchyma as well as within the overlying scalp. Some CSF is aga in noted bulging across the craniectomy defect measuring 2.7 cm. Redemonstrated underlying encephalomalacia with a contiguous extra-axial enlargement of the atrium of the right lateral ventricle. Adjacent white matter hypodensity extending into the superior right occ ipital lobe is unchanged. No evidence for acute intracranial hemorrhage, acute ischemic change, mass, mass effect, midline shif t, otherwise any extra-axial fluid collection. No effacement of cerebral sulci or basal subarachnoid cisterns. Cole-white matter differentiation is maintained. Changes of chronic sinusitis. Orbits appears symmetric. Partially empty sella turcica. Craniocervical junction maintained. IMPRESSION: 1. Postsurgical and remote postischemic change similar to the prior exam.
== END | disposition home or self-care (01) ==
LOC: RADCTMAIN 07:22
PROVIDERS: ATTEND Psychiatry & Neurology Neurology
DX: M79.10 Myalgia, unspecified site (principal); H57.10 Ocular pain, unspecified eye; G81.94 Hemiplegia, unspecified affecting left nondominant side; H53.452 Other localized visual field defect, left eye; R56.1 Post traumatic seizures; R51.9 Headache, unspecified; Z86.69 Personal history of other diseases of the nervous system and sense organs; Z87.828 Personal history of other (healed) physical injury and trauma; Z86.73 Personal history of transient ischemic attack (TIA), and cerebral infarction without residual deficits; Z98.890 Other specified postprocedural states
CPT/HCPCS: 70470; Q9967

== ENCOUNTER 2022-09-02 17:53 | Emergency (ER) | payer MEDICARE, OTHER ==
[2022-09-02 19:04] VITALS: BP 168/92; PULSE 100; RESP 20; TEMP 97.6
--- NOTE | 2022-09-02 20:28 | ED ---
Male Urogenital HPI - General Chief complaint: Urogenital Stated complaint: Cath clog Time Seen by Provider: 09/02/22 19:31 Source: patient Mode of arrival: ambulatory Limitations: no limitations - History of Present Illness Initial comments: This patient is 62-year-old man who presents to have evaluation for Mohr catheter that has stopped draining. Patient has had indwelling Mohr catheter for quite some time. He states that it was changed months ago. He noticed around 7 AM that urine stopped draining from it. A few hours ago he started to develop suprapubic pressure type pain and urge to urinate. Patient denies fever or chills. No tachycardia or dyspnea. MD Complaint: other Onset/Timin -: days(s) Location: abdomen Severity: mild Quality: other (Pressure ) Consistency: constant Improves with: none Worsens with: none indwelling catheter Reports: urinary retention - Related Data Home Medications Medication Instructions Recorded Confirmed ARIPiprazole 15 mg PO DAILY 03/03/22 05/18/22 Acetaminophen [Tylenol] 650 mg PO Q4H PRN 03/03/22 05/18/22 Albuterol Sulfate [Albuterol 2 puff INHALATION RT-QID 03/03/22 05/18/22 Sulfate Hfa] Artificial Tears-Hypromellose 1 drop BOTH EYES QID PRN 03/03/22 05/18/22 [Artificial Tear Drops] Artificial Tears-Hypromellose 1 drops BOTH EYES Q12H 03/03/22 05/18/22 [Artificial Tear Drops] Baclofen [Lioresal] 10 mg PO BID 03/03/22 05/18/22 Bismuth Subsalicylate 30 ml PO Q4H PRN 03/03/22 05/18/22 [Pepto-Bismol] Butalb/Acetaminophen/Caffeine 1 cap PO BID PRN 03/03/22 05/18/22 [Fioricet 50-300-40 mg Capsule] Cyanocobalamin [Vitamin B-12] 500 mcg PO DAILY 03/03/22 05/18/22 Fluticasone Propionate [Flonase 1 spr EA NOSTRIL DAILY 03/03/22 05/18/22 Allergy Relief] Folic Acid 1 mg PO DAILY 03/03/22 05/18/22 Furosemide [Lasix] 40 mg PO BID@0600,1300 03/03/22 05/18/22 Galcanezumab-Gnlm [Emgality 120 mg SQ Q28D 03/03/22 05/18/22 Syringe] Ibuprofen 600 mg PO Q6H PRN 03/03/22 05/18/22 Isosorbide Mononitrate ER [Imdur] 30 mg PO DAILY 03/03/22 05/18/22 Levothyroxine Sodium 25 mcg PO DAILY@0600 03/03/22 05/18/22 Loperamide HCl [Loperamide] 2 mg PO Q6H PRN 03/03/22 05/18/22 Loratadine 10 mg PO DAILY 03/03/22 05/18/22 Lovastatin [Mevacor] 20 mg PO HS 03/03/22 05/18/22 Metoprolol Tartrate [Lopressor] 50 mg PO Q12H 03/03/22 05/18/22 Montelukast Sodium [Singulair] 10 mg PO HS 03/03/22 05/18/22 PARoxetine HCL [Paxil] 10 mg PO DAILY 03/03/22 05/18/22 PARoxetine HCL [Paxil] 40 mg PO DAILY 03/03/22 05/18/22 Potassium Chloride [Klor-Con M20] 20 meq PO BID@0600,1300 03/03/22 05/18/22 Refresh P.M. Ointment 1 applic BOTH EYES HS 03/03/22 05/18/22 Sennosides [Senokot] 17.2 mg PO DAILY 03/03/22 05/18/22 Tamsulosin HCl [Flomax] 0.4 mg PO BID 03/03/22 05/18/22 allopurinoL [Zyloprim] 100 mg PO DAILY 03/03/22 05/18/22 guaiFENesin [guaiFENesin Oral 200 mg PO Q4H PRN 03/03/22 05/18/22 Solution] lamoTRIgine [LaMICtal] 50 mg PO DAILY 03/03/22 05/18/22 polyethylene glycoL 3350 [Miralax] 17 gm PO DAILY 03/03/22 05/18/22 Diclofenac Sodium [Voltaren 1 applic TOPICAL BID 04/17/22 05/18/22 Arthritis Pain 1% Gel] Omeprazole 20 mg PO DAILY@0600 04/17/22 05/18/22 Thioridazine HCl [Mellaril] 25 mg PO QID 04/17/22 05/18/22 Ubrogepant [Ubrelvy] 100 mg PO BID PRN 04/17/22 05/18/22 Menthol [Biofreeze] 1 applic TOPICAL Q4H PRN 05/18/22 05/18/22 Previous Rx's Medication Instructions Recorded Gabapentin 600 mg PO TID@0900,1300,2100 #9 tab 04/22/22 cefUROXime axetiL [Ceftin] 500 mg PO BID 1 Days #20 tab 05/19/22 Allergies Allergy/AdvReac Type Severity Reaction Status Date / Time No Known Allergies Allergy Verified 09/02/22 19:04 Review of Systems ROS Statement: Those systems with pertinent positive or pertinent negative responses have been documented in the HPI. ROS Other: All systems not noted in ROS Statement are negative. Constitutional: Denies: fever, chills Respiratory: Denies: cough, dyspnea Cardiovascular: Denies: chest pain, palpitations Gastrointestinal: Reports: as per HPI, abdominal pain. Denies: vomiting, diarrhea Genitourinary: Reports: as per HPI, other (Mohr catheter obstruction). Denies: testicular pain Musculoskeletal: Denies: back pain Past Medical History Past Medical History: CVA/TIA, GERD/Reflux, Hyperlipidemia, Hypertension, Osteoarthritis (OA), Prostate Disorder, Thyroid Disorder Additional Past Medical History / Comment(s): CVA with left sided deficits. Indwelling mohr catheter, neuromuscular dysfunction of bladder. Hx Epilepsy, no seizures since 2018. Hypothyroid. History of Any Multi-Drug Resistant Organisms: VRE Date of last positivie culture/infection: 2017 MDRO Source:: unknown Past Surgical History: Unable to Obtain Past Anesthesia/Blood Transfusion Reactions: No Reported Reaction Date of Last Stent Placement:: march 2022 Past Psychological History: Anxiety, Bipolar, Depression Smoking Status: Unknown if ever smoked Past Alcohol Use History: Rare Past Drug Use History: None Reported - Past Family History Mother Family Medical History: Unable to Obtain General Exam Limitations: no limitations General appearance: alert, in no apparent distress Head exam: Present: atraumatic, normocephalic Respiratory exam: Present: normal lung sounds bilaterally. Absent: respiratory distress, wheezes, rales, rhonchi, stridor Cardiovascular Exam: Present: regular rate, normal rhythm, normal heart sounds. Absent: systolic murmur, diastolic murmur, rubs, gallop GI/Abdominal exam: Present: soft, other (The patient does have some guarding over the bladder and there is fullness consistent with full and). Absent: distended Course Vital Signs 09/02/22 19:01 Temperature 97.6 F Pulse Rate 100 Respiratory 20 Rate Blood Pressure 168/92 O2 Sat by Pulse 95 Oximetry Medical Decision Making - Medical Decision Making Patient is 62-year-old man with a long-time indwelling Mohr catheter that has become obstructed. The catheter was changed with good drainage. The bladder does appear to be colonized, will send urine culture and can then give appropriate antibiotic should any symptoms of infection develop Disposition Clinical Impression: Obstructed Mohr catheter Disposition: HOME SELF-CARE Condition: Good Instructions (If sedation given, give patient instructions): Mohr Catheter Placement and Care (ED) Is patient prescribed a controlled substance at d/c from ED?: No Referrals: Daniel You MD [Primary Care Provider] - 1-2 days
== END 2022-09-02 21:47 | disposition home or self-care (01) ==
LOC: EC 17:53
DX: T83.091A Other mechanical complication of indwelling urethral catheter, initial encounter (principal); G45.9 Transient cerebral ischemic attack, unspecified; K21.9 Gastro-esophageal reflux disease without esophagitis; E78.5 Hyperlipidemia, unspecified; I10 Essential (primary) hypertension; M19.90 Unspecified osteoarthritis, unspecified site; E03.9 Hypothyroidism, unspecified; F41.9 Anxiety disorder, unspecified; F31.9 Bipolar disorder, unspecified; Z79.890 Hormone replacement therapy; Z79.1 Long term (current) use of non-steroidal anti-inflammatories (NSAID); Z79.899 Other long term (current) drug therapy
CPT/HCPCS: 51702; 87077; 87086; 87186; 99284

== ENCOUNTER → 2023-09-14 | Outpatient (CLI) | payer MEDICARE, OTHER ==
--- NOTE | 2023-09-14 11:16 | CT ---
EXAMINATION TYPE: CT chest w con DATE OF EXAM: 09/14/2023 COMPARISON: None HISTORY: sob and wheezing. CT DLP: 894 mGycm Automated exposure control for dose reduction was used. TECHNIQUE: CT scan of the chest is performed with IV Contrast, patient injected with 100ml mL of Isovue 300. CT P Images are created on CT scanner and reviewed. 3D reconstructed images are created on an [employer] workstation and reviewed. FINDINGS: LUNGS: There is left lower lobe and draped. Subsegmental changes in the bilateral upper lobe apex lik saundra post inflammatory with questionable tree-in-bud pattern represents a plantar. No pneumothorax or effusion. No overt heart failure. There is a 2 mm subpleural nodule right lower lobe image 46 series 4. There is a 1 to 2 mm some 1960 MEDIASTINUM: There are no greater than 1 cm hilar or mediastinal lymph nodes. No pericardial effusi on is seen. OTHER: Small hiatal hernia. Mild bilateral gynecomastia. Hypertrophic degenerative changes spine. Santiago bcentimeter hypodensity within the liver too small to characterize. IMPRESSION: 1. Left lower lobe infiltrate correlate for pneumonia. 2. Bilateral pulmonary micronodules have a benign appearance recommend follow-up [address] low-dose screening exam as clinically warranted. Follow-up recommendations for incidental pulmonary nodules are per [employer] or [employer]. A Yellow level critical message alert has been initiated for Daniel You MD via the [employer] Critical Results System on 09/14/2023 11:13 AM. This message alert has been sent to Daniel You MD v jeovany the preferences provided by the clinician for the receipt of Radiology Critical Findings. Message ID [id number].
== END | disposition home or self-care (01) ==
LOC: RADCTMAIN 08:04
PROVIDERS: ATTEND Internal Medicine
DX: R91.8 Other nonspecific abnormal finding of lung field (principal); R06.2 Wheezing; R06.02 Shortness of breath
CPT/HCPCS: 71260; Q9967

== ENCOUNTER → 2023-10-14 | Outpatient (CLI) | payer MEDICARE, OTHER ==
--- NOTE | 2023-10-16 12:01 | XR ---
EXAMINATION TYPE: XR lumbosacral spine min 4V DATE OF EXAM: 10/14/2023 COMPARISON: None HISTORY: Back pain worsening TECHNIQUE: 5V lumbar spine FINDINGS: There are 5 lumbar-type vertebral bodies. The pedicles are intact. Facet degenerative muse es are present in the lower lumbar spine. There may be spondylolysis of the left pars interarticulari s. Consider CT or MRI for additional evaluation. There is loss of disc height through the L5-S1 level . Some narrowing of the L4-5 disc level is present. Spondylosis is present. IMPRESSION: 1. Possible spondylolysis on left L5. 2. Degenerative disc changes L4-5 L5-S1.
== END | disposition home or self-care (01) ==
LOC: RADXRMAIN 12:26
PROVIDERS: ATTEND Psychiatry & Neurology Neurology
DX: M51.37 Other intervertebral disc degeneration, lumbosacral region (principal); M51.36 Other intervertebral disc degeneration, lumbar region
CPT/HCPCS: 72110

== ENCOUNTER → 2023-11-11 | Outpatient (CLI) | payer MEDICARE, OTHER ==
--- NOTE | 2023-11-14 10:55 | NM ---
EXAMINATION TYPE: NM DatScan Brain SPECT DATE OF EXAM: 11/11/2023 COMPARISON: NONE CLINICAL INDICATION: Male, 63 years old with history of G25.0; TECHNIQUE: 10 drops of Lugol's solution was administered 1 hour prior to injection as a thyroid bloc howie agent. After the administration of 4.5 mCi I-123 Ioflupane DaTscan. Images obtained 3.5 hours post injection. SPECT images of the brain were acquired with axial and coronal reconstructions. FINDINGS: There is bilateral symmetric uptake within the corpus striata. No abnormal increased background activ ity. IMPRESSION: No evidence for Parkinson's disease or a parkinsonian syndrome. The normal appearance may be seen in normal individuals and those with essential tremor.
== END | disposition home or self-care (01) ==
LOC: RADNMMAIN 10:39
PROVIDERS: ATTEND Psychiatry & Neurology Neurology
DX: G25.0 Essential tremor (principal)
CPT/HCPCS: 78803; A9584

== ENCOUNTER 2024-01-27 07:02 | Day surgery (SDC) | payer MEDICARE, OTHER ==
[~2024-01-27 07:02] MED LIST changes: +LACTATED RINGERS 1,000 ML IV SCH; +LIDOCAINE 1% (10MG/ML) FOR IV START INTRADERMA PRN; -REGADENOSON 0.4 MG/5 ML SYRINGE IV PRN
[2024-01-27] MEDS: LACTATED RINGERS 1,000 ML IV ONE (07:30)
[2024-01-27 07:39] LABS: Glucose,Whole Blood 91 mg/dL (70-110)
[2024-01-27] MEDS ORDERED: PROPOFOL 10 MG/ML 20 ML VIAL IV ONE (08:11)
[2024-01-27] MEDS ORDERED: LIDOCAINE 1% INJ 10MG/ML (20 ML MDV) ONE (08:11)
[2024-01-27 08:52] VITALS: RESP 16; TEMP 97.4
--- NOTE | 2024-01-27 09:20 | P.PCN ---
Date of Procedure: 01/27/24 Procedure(s) Performed: Brief history: Patient is a pleasant 63-year-old white male scheduled for an elective upper endoscopy as well as colonoscopy as a part of evaluation of epigastric pain for the last 2 months duration. He also has prior history of colon polyps. Procedure performed: Esophagogastroduodenoscopy with biopsy Colonoscopy Preoperative diagnosis: Chronic epigastric pain History of colon polyps Anesthesia: MAC Procedure: After informed consent was obtained from the patient was brought into the endoscopy unit and IV sedation was administered by anesthesia under continuous monitoring. Initially upper endoscopy was done. The Olympus GF 160 video endoscope was inserted inserted into the mouth and esophagus intubated without any difficulty and was gradually advanced into the stomach and duodenum and carefully examined. The bulb and second part of the duodenum appeared normal. The scope was then withdrawn into the stomach adequately insufflated with air and upon careful examination the antrum mild diffuse gastritis and biopsies were done from this area. Mucosa of the body, cardia and fundus appeared normal. The scope was then withdrawn into the esophagus. Mild hiatal hernia noted. The GE junction was located at 40 cm to the incisors. It appeared regular with no erythema erosions or ulcerations. Rest of the esophagus appeared normal. Patient tolerated the procedure well. At this time the patient continued to remain sedation. Initial digital rectal examination was normal. Olympus CF 160 video colonoscope was then inserted into the rectum and gradually advanced to the cecum without any difficulty. Careful examination was performed as the scope was gradually being withdrawn. The prep was excellent. The cecum, ascending colon, transverse colon, descending colon, sigmoid colon and rectum appeared normal. Scattered sigmoid diverticulosis. Retroflexion was performed in the rectum and no lesions were noted. Patient tolerated the procedure well. Impression: 1. Upper endoscopy revealed small hiatal hernia and mild antral gastritis 2. Colonoscopy was within normal limits with no evidence of colorectal neoplasia except for scattered sigmoid diverticulosis Recommendations: Findings of this examination were discussed with the patient as well as his family. He was advised to follow the biopsy results. Recommend repeat screening colonoscopy in 10 years.
[2024-01-27 09:39] VITALS: BP 162/86; PULSE 73
== END 2024-01-27 09:45 ==
LOC: ORWHC2ENDO 07:02
PROVIDERS: ATTEND Internal Medicine Gastroenterology
DX: K29.50 Unspecified chronic gastritis without bleeding (principal); K44.9 Diaphragmatic hernia without obstruction or gangrene; K57.30 Diverticulosis of large intestine without perforation or abscess without bleeding; G89.29 Other chronic pain; Z86.010 Personal history of colon polyps; Z79.899 Other long term (current) drug therapy
CPT/HCPCS: 88305; 43239; J2001; J2704; G0105

== ENCOUNTER → 2024-02-08 | Outpatient (CLI) | payer MEDICARE, OTHER ==
--- NOTE | 2024-02-08 10:08 | CT ---
EXAMINATION TYPE: CT cervical spine wo con CT DLP: 743.1 mGycm, Automated exposure control for dose reduction was used. DATE OF EXAM: 02/08/2024 9:36 AM COMPARISON: CT cervical spine 06/30/2023. CLINICAL INDICATION:Male, 63 years old with history of M54.2 CERVICALGIA; PHH, left neck pain chronic TECHNIQUE: Axial CT images from the skull base to the inferior aspect of T2 we obtained without intra venous contrast. Coronal and sagittal reformatted images were also reviewed. FINDINGS: Fracture: None. Osseous structures: Multilevel degenerative disc disease changes with endplate spurring and anterior osteophytosis. Multilevel facet arthropathy . Degenerative changes of the right sternoclavicular join t. Vertebral alignment: No spondylolisthesis. Spinal canal/Neural Foramina: No evidence of significant spinal canal narrowing. Facet joint uncovert ebral joint arthropathy scattered throughout the cervical spine with varying degrees of neural forami nal stenosis. Mild left neural foraminal stenosis at C2-C3. Mild right neuroforaminal stenosis at C3- C4. Mild to moderate neural left foraminal stenosis at C3-C4 with moderate arthropathy at the left C3 -C4 facet joint. This is progressed from prior examination. Neck soft tissues: Prevertebral soft tissues are within normal limits. Other: The airway is patent. Several grouped pulmonary nodules within the right upper lobe in a tree- in-bud configuration are redemonstrated. IMPRESSION: 1. No evidence of cervical spine fracture. 2. Mild multilevel degenerative disc disease. Moderate left facet arthropathy at C3-C4 which is progr essed from prior examination. 3. Stable tree-in-bud pulmonary nodular opacities within the right upper lobe from prior exams, likel y benign.
== END | disposition home or self-care (01) ==
LOC: RADCTMAIN 08:36
PROVIDERS: ATTEND Internal Medicine
DX: M47.812 Spondylosis without myelopathy or radiculopathy, cervical region (principal); M50.30 Other cervical disc degeneration, unspecified cervical region; R91.8 Other nonspecific abnormal finding of lung field
CPT/HCPCS: 72125

== ENCOUNTER 2024-10-14 03:20 | Emergency (ER) | payer MEDICARE, OTHER ==
[2024-10-14 03:40] VITALS: TEMP 98.1
--- NOTE | 2024-10-14 03:40 | ED ---
Fall HPI - General Chief Complaint: Fall Stated Complaint: Fall Time Seen by Provider: 10/14/24 03:31 Source: EMS, RN notes reviewed, old records reviewed Mode of arrival: EMS Limitations: no limitations - History of Present Illness Initial Comments: This is a 64-year-old male following over while trying to get past his roommates bed. 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 Witnessed: yes, by family Place Fall Occurred: home Loss of Consciousness: none Prolonged Down Time?: no Symptoms Prior to Fall: none Location: head, face, chest, back, pelvis Severity: moderate Severity scale (1-10): 5 Quality: dull Context: tripped/slipped Associated Symptoms: denies - Related Data Home Medications Medication Instructions Recorded Confirmed ARIPiprazole 15 mg PO DAILY 03/03/22 01/27/24 Acetaminophen [Tylenol] 650 mg PO Q4H PRN 03/03/22 01/27/24 Albuterol Sulfate [Albuterol 2 puff INHALATION RT-QID 03/03/22 01/27/24 Sulfate Hfa] Artificial Tears-Hypromellose 1 drop BOTH EYES QID PRN 03/03/22 01/27/24 [Artificial Tear Drops] Artificial Tears-Hypromellose 1 drops BOTH EYES Q12H 03/03/22 01/27/24 [Artificial Tear Drops] Baclofen [Lioresal] 10 mg PO BID 03/03/22 01/27/24 Bismuth Subsalicylate 30 ml PO Q4H PRN 03/03/22 01/27/24 [Pepto-Bismol] Butalb/Acetaminophen/Caffeine 1 cap PO BID PRN 03/03/22 01/27/24 [Fioricet 50-300-40 mg Capsule] Cyanocobalamin [Vitamin B-12] 500 mcg PO DAILY 03/03/22 01/27/24 Fluticasone Propionate [Flonase 1 spr EA NOSTRIL DAILY 03/03/22 01/27/24 Allergy Relief] Folic Acid 1 mg PO DAILY 03/03/22 01/27/24 Furosemide [Lasix] 40 mg PO BID@0600,1300 06/01/22 04/26/24 Ibuprofen 600 mg PO Q6H PRN 03/03/22 01/27/24 Isosorbide Mononitrate ER [Imdur] 30 mg PO DAILY 03/03/22 01/27/24 Loperamide HCl [Loperamide] 2 mg PO Q6H PRN 03/03/22 01/27/24 Lovastatin [Mevacor] 20 mg PO HS 03/03/22 01/27/24 Metoprolol Tartrate [Lopressor] 50 mg PO Q12H 03/03/22 01/27/24 Montelukast Sodium [Singulair] 10 mg PO HS 03/03/22 01/27/24 PARoxetine HCL [Paxil] 10 mg PO DAILY 03/03/22 01/27/24 PARoxetine HCL [Paxil] 40 mg PO DAILY 03/03/22 01/27/24 Refresh P.M. Ointment 1 applic BOTH EYES HS 03/03/22 01/27/24 Sennosides [Senokot] 17.2 mg PO DAILY 03/03/22 01/27/24 Tamsulosin HCl [Flomax] 0.4 mg PO BID 03/03/22 01/27/24 allopurinoL [Zyloprim] 100 mg PO DAILY 03/03/22 01/27/24 guaiFENesin [guaiFENesin Oral 400 mg PO Q4H PRN 03/03/22 01/27/24 Solution] lamoTRIgine [LaMICtal] 50 mg PO DAILY 03/03/22 01/27/24 polyethylene glycoL 3350 [Miralax] 17 gm PO DAILY 03/03/22 01/27/24 Diclofenac Sodium [Voltaren 1 applic TOPICAL BID 04/17/22 01/26/24 Arthritis Pain 1% Gel] Omeprazole 20 mg PO DAILY@0600 04/17/22 01/27/24 ALPRAZolam [Xanax] 0.5 mg PO DAILY PRN 01/26/24 01/27/24 Almovig 140 mg SQ DAILY 01/26/24 01/27/24 Benzoyl Peroxide [Benzac AC Wash] 1 applic TOPICAL TUSA 01/26/24 01/27/24 Fluocinolone/Shower Cap 1 applic TOPICAL HS PRN 01/26/24 01/26/24 [Nrcln-Psmpxbs-Mz Scalp Oil] Fluticasone/Umeclidin/Vilanter 1 puff INHALATION HS 01/26/24 01/27/24 [Trelegy Ellipta 200-62.5-25] Levothyroxine Sodium [Synthroid] 25 mcg PO DAILY 01/26/24 01/27/24 Loratadine 10 mg PO DAILY 01/26/24 01/27/24 Menthol [Biofreeze] 1 applic TOPICAL DAILY PRN 01/26/24 01/27/24 Minocycline HCl [Minocin] 100 mg PO DAILY 01/26/24 01/27/24 Ocusoft 1 applic BOTH EYES HS 01/26/24 01/27/24 Potassium Chloride [Klor-Con M20] 20 meq PO BID 01/26/24 01/27/24 Primidone 25 mg PO DAILY 01/26/24 01/27/24 Rimegepant Sulfate [Nurtec Odt] 75 mg PO DAILY PRN 01/26/24 01/27/24 Tirzepatide [Mounjaro] 5 mg SQ FR 01/26/24 01/27/24 Triamcinolone 0.1% Cream [Kenalog 1 applic TOPICAL DAILY 01/26/24 01/27/24 0.1% Cream] Previous Rx's Medication Instructions Recorded Gabapentin 600 mg PO TID@0900,1300,2100 #9 tab 04/22/22 Allergies Allergy/AdvReac Type Severity Reaction Status Date / Time No Known Allergies Allergy Verified 10/14/24 03:40 Review of Systems ROS Statement: Those systems with pertinent positive or pertinent negative responses have been documented in the HPI. ROS Other: All systems not noted in ROS Statement are negative. Past Medical History Past Medical History: Heart Failure, CVA/TIA, Diabetes Mellitus, GERD/Reflux, Hyperlipidemia, Hypertension, Liver Disease, Osteoarthritis (OA), Prostate Disorder, Thyroid Disorder, Vascular Disorder Additional Past Medical History / Comment(s): CVA with left sided deficits, neuromuscular dysfunction of bladder/chronic mohr, BPH, TBI, epilepsy, no seiz ures since 2018, migraines, pulmonary htn, ileus, hypothyroid, dysphagia/swallows pills, venous insufficiency, chronic rhinitis, fatty liver, past etoh abuse, gout History of Any Multi-Drug Resistant Organisms: VRE Date of last positivie culture/infection: 2017 MDRO Source:: unknown Past Surgical History: Unable to Obtain Past Anesthesia/Blood Transfusion Reactions: No Reported Reaction Date of Last Stent Placement:: march 2022 Past Psychological History: Anxiety, Bipolar, Depression Smoking Status: Unknown if ever smoked - Past Family History Mother Family Medical History: Unable to Obtain General Exam General appearance: alert, in no apparent distress Head exam: Present: atraumatic, normocephalic, normal inspection Eye exam: Present: normal appearance, PERRL, EOMI. Absent: scleral icterus, conjunctival injection, periorbital swelling ENT exam: Present: normal exam, mucous membranes moist Neck exam: Present: normal inspection. Absent: tenderness, meningismus, lymphadenopathy Respiratory exam: Present: normal lung sounds bilaterally. Absent: respiratory distress, wheezes, rales, rhonchi, stridor Cardiovascular Exam: Present: regular rate, normal rhythm, normal heart sounds. Absent: systolic murmur, diastolic murmur, rubs, gallop, clicks GI/Abdominal exam: Present: soft, normal bowel sounds. Absent: distended, tenderness, guarding, rebound, rigid Extremities exam: Present: normal inspection, full ROM, normal capillary refill. Absent: tenderness, pedal edema, joint swelling, calf tenderness Back exam: Present: normal inspection Neurological exam: Present: alert, oriented X3, CN II-XII intact Psychiatric exam: Present: normal affect, normal mood Skin exam: Present: warm, dry, intact, normal color. Absent: rash Course Vital Signs 10/14/24 10/14/24 03:23 06:01 Temperature 98.1 F Pulse Rate 75 67 Respiratory 18 16 Rate Blood Pressure 129/69 107/61 O2 Sat by Pulse 100 94 L Oximetry - Reevaluation(s) Reevaluation #1: 10/14/24 04:08 Medical records reviewed Reevaluation #2: 10/14/24 06:23 Patient informed of results and questions answered Reevaluation #3: 10/14/24 06:23 Patient has pain is improved here in the ER Reevaluation #4: Was pt. sent in by a medical professional or institution (, PA, DEMOLITION WORKER, urgent care, hospital, or halfway...) When possible be specific @ -no Did you speak to anyone other than the patient for history (EMS, parent, family, police, friend...)? What history was obtained from this source @ -no Did you review nursing and triage notes (agree or disagree)? Why? @ -agree Are old charts reviewed (outside hosp., previous admission, EMS record, old EKG, old radiological studies, urgent care reports/EKG's, halfway records)? Report findings @ -yes Differential Diagnosis (chest pain, altered mental status, abdominal pain women, abdominal pain men, vaginal bleeding, weakness, fever, dyspnea, syncope, headache, dizziness, GI bleed, back pain, seizure, CVA, palpatations, mental health, musculoskeletal)? @ -prior EKG interpreted by me (3pts min.). @ -yes X-rays interpreted by me (1pt min.). @ -yes negative for acute disease CT interpreted by me (1pt min.). @ -yes negative for acute disease U/S interpreted by me (1pt. min.). @ -no What testing was considered but not performed or refused? (CT, X-rays, U/S, labs)? Why? @ -none What meds were considered but not given or refused? Why? @ -none Did you discuss the management of the patient with other professionals (professionals i.e. , PA, DEMOLITION WORKER, lab, RT, psych nurse, social and political studies professor, financial sales consultant, teacher, credit compliance officer, correctional casework specialist)? Give summary @ -no Was smoking cessation discussed for >3mins.? @ -no Was critical care preformed (if so, how long)? @ -no Were there social determinants of health that impacted care today? How? (Homelessness, low income, unemployed, alcoholism, drug addiction, transportation, low edu. Level, literacy, decrease access to med. care, snf, rehab)? @ -none Was there de-escalation of care discussed even if they declined (Discuss DNR or withdrawal of care, Hospice)? DNR status @ -no What co-morbidities impacted this encounter? (DM, HTN, Smoking, COPD, CAD, Cancer, CVA, ARF, Chemo, Hep., AIDS, mental health diagnosis, sleep apnea, morbid obesity)? @ -none Was patient admitted / discharged? Hospital course, mention meds given and route, prescriptions, significant lab abnormalities, going to OR and other pertinent info. @ - 64 male to ER after fall. Fall from standing over bed. Patient has no significant traumatic injury noted and can be discharged home Discharge fall from standing Undiagnosed new problem with uncertain prognosis? @ -no Drug Therapy requiring intensive monitoring for toxicity (Heparin, Nitro, Insulin, Cardizem)? @ -no Were any procedures done? @ -no Diagnosis/symptom? @ - Acute, or Chronic, or Acute on Chronic? @ -Acute Uncomplicated (without systemic symptoms) or Complicated (systemic symptoms)? @ -Complicated Side effects of treatment? @ -no Exacerbation, Progression, or Severe Exacerbation? @ -exacerbation Poses a threat to life or bodily function? How? (Chest pain, [place], [place], pneumonia, PE, COPD, DKA, ARF, appy, cholecystitis, CVA, Diverticulitis, Homicidal, Suicidal, threat to staff... and all critical care pts) @ -yes extremes of age Medical Decision Making - Medical Decision Making 64 male to ER after fall. Fall from standing over bed. Patient has no significant traumatic injury noted and can be discharged home - EKG Data -: EKG Interpreted by Me (EKG is sinus 74 IA 191 QRS 114 QTc 421) - Radiology Data Radiology results: report reviewed (CT brain C-spine x-ray shoulder hip negative for traumatic injury), image reviewed Disposition Clinical Impression: Fall, Right shoulder pain Disposition: HOME SELF-CARE Condition: Good Instructions (If sedation given, give patient instructions): Fall Prevention for Older Adults (ED) Is patient prescribed a controlled substance at d/c from ED?: No Referrals: Daniel You MD [Primary Care Provider] - 1-2 days Time of Disposition: 06:00
[2024-10-14] MEDS: HYDROmorphone 1 MG/ML 1 ML SYRINGE IM STA (04:04)
--- NOTE | 2024-10-14 04:39 | CT ---
EXAM: CT Head and Maxillofacial Without Intravenous Contrast CLINICAL HISTORY: ITS.REASON CT Reason: fall TECHNIQUE: Axial computed tomography images of the head/brain and face without intravenous contrast. CTDI is 18 mGy and DLP is 4 93 mGy-cm. This CT exam was performed using one or more of the following dose reduction techniques: automated exposure control, adjustment of the mA and/or kV according to patient size, and/or use of iterative reconstruction technique. COMPARISON: No relevant prior studies available. FINDINGS: Bones/joints: No acute fracture. Soft tissues: Unremarkable. Sinuses: No acute sinusitis. Mastoid air cells: No mastoid effusion. Orbits: Unremarkable. IMPRESSION: No acute fracture.
--- NOTE | 2024-10-14 05:48 | CT ---
EXAM: CT Head Without Intravenous Contrast CLINICAL HISTORY: ITS.REASON CT Reason: fall TECHNIQUE: Axial computed tomography images of the head/brain without intravenous contrast. CTDI is 25.8 mGy and DLP is 743 mGy-cm. This CT exam was performed using one or more of the following dose reduction techniques: automated exposure control, adjustment of the mA and/or kV according to patient size, and/or use of iterative reconstruction technique. COMPARISON: No relevant prior studies available. FINDINGS: Brain: No intracranial hemorrhage, mass-effect, or cerebral edema. Right parietal encephalomalacia. Ventricles: Unremarkable. Bones/joints: Unremarkable. No fracture. Soft tissues: Left frontal scalp hematoma. Sinuses: No acute sinusitis. Mastoid air cells: Unremarkable as visualized. IMPRESSION: 1. No acute intracranial abnormality. 2. Left frontal scalp hematoma. EXAM: CT Cervical Spine Without Intravenous Contrast CLINICAL HISTORY: ITS.REASON CT Reason: fall TECHNIQUE: Axial computed tomography images of the cervical spine without intravenous contrast. CTDI is 17.9 mGy and DLP is 492.9 mGy-cm. This CT exam was performed using one or more of the following dose reduction techniques: automated exposure control, adjustment of the mA and/or kV according to patient size, and/or use of iterative reconstruction technique. COMPARISON: No relevant prior studies available. FINDINGS: Vertebrae: No acute fracture or malalignment. Dextrocurvature. No spinal canal stenosis. Soft tissues: Unremarkable. IMPRESSION: No acute abnormality.
--- NOTE | 2024-10-14 05:59 | XR ---
EXAM: XR Right Shoulder Complete, 2 or More Views CLINICAL HISTORY: ITS.REASON XR Reason: fall TECHNIQUE: Two or more views of the right shoulder. COMPARISON: No relevant prior studies available. FINDINGS: Bones/joints: Unremarkable. No fracture or malalignment. Soft tissues: Unremarkable. IMPRESSION: No fracture or malalignment.
--- NOTE | 2024-10-14 06:00 | XR ---
EXAM: XR Right Hip With Pelvis When Performed, 2 or 3 Views CLINICAL HISTORY: ITS.REASON XR Reason: fall TECHNIQUE: Two or three views of the right hip with pelvis when performed. COMPARISON: 04/13/2021 FINDINGS: Bones/joints: Unremarkable. No fracture or malalignment. IMPRESSION: No acute fracture or malalignment.
--- NOTE | 2024-10-14 06:01 | XR ---
EXAM: XR Chest, 1 View CLINICAL HISTORY: ITS.REASON XR Reason: fall TECHNIQUE: Frontal view of the chest. COMPARISON: 05/18/2022 FINDINGS: Lungs: Consolidation. Linear atelectasis in the left midlung. Pleural space: No pleural effusion. No pneumothorax. Heart: Cardiomegaly. Bones/joints: No radiographically evident fracture. IMPRESSION: No acute findings in the chest.
[2024-10-14 06:11] VITALS: BP 107/61; PULSE 67; RESP 16
== END 2024-10-14 07:01 | disposition home or self-care (01) ==
LOC: EC 03:20
DX: M25.511 Pain in right shoulder (principal); M25.551 Pain in right hip; R07.89 Other chest pain; W01.0XXA Fall on same level from slipping, tripping and stumbling without subsequent striking against object, initial encounter
CPT/HCPCS: 93005; 73502; 73020; 71045; 72125; 70486; 70450; 99284; 96372; J1171

== ENCOUNTER 2025-03-30 12:04 | Inpatient (IN) | payer MEDICARE, OTHER ==
[2025-03-30] MEDS: SODIUM CHLORIDE 0.9% 1,000 ML IV ONE (12:12)
[2025-03-30 12:19] LABS: Glucose,Whole Blood 117 mg/dL (70-110)
[2025-03-30] MEDS ORDERED: LACTATED RINGERS 1,000 ML IV SCH (12:30)
[2025-03-30 12:38] LABS: HCT 40.7 % (39.6-50.0); HGB 13.6 g/dL (13.0-17.0); MCH 26.9 pg (27.0-32.0); MCHC 33.4 g/dL (32.0-37.0); MCV 80.6 fL (80.0-97.0); Platelet Count 431 10*3/uL (140-440); RBC 5.05 10*6/uL (4.40-5.60); RDW 15.9 % (11.5-14.5); WBC 31.75 10*3/uL (4.50-10.00)
[2025-03-30] MEDS: LACTATED RINGERS 1,000 ML IV SCH ×2 (12:52→13:56)
[2025-03-30 13:05] LABS: Bacteria,Urine Occasional /hpf; Bilirubin,Urine Negative (Negative); Blood,Urine Moderate (Negative); Color,Urine Light Red; Glucose,Urine (UA) Negative (Negative); Ketones,Urine Negative (Negative); Leukocyte Esterase,Urine Large (Negative); Nitrite,Urine Negative (Negative); PH, Urine 7.5 (5.0-8.0); Protein,Urine 3+ (Negative); RBC,Urine >182 /hpf (0-5); Specific Gravity,Urine 1.016 (1.001-1.035); Urobilinogen,Urine <2.0 mg/dL (<2.0); WBC,Urine >182 /hpf (0-5)
[2025-03-30 13:17] LABS: INR 1.5 (<1.2); Partial Thromboplastin Time 26.7 sec (22.0-30.0); Prothrombin Time 15.3 sec (10.0-12.5)
[2025-03-30 13:22] LABS: Lymphocytes # (M) 0.32 k/uL (1.0-4.8); Monocytes # (M) 0.95 k/uL (0-1.0); Neutrophils # (M) 30.48 k/uL (1.3-7.7); Neutrophils % (M) 95 %; Total Cells Counted 100
[2025-03-30 13:23] LABS: ALT 9 U/L (4-49); African American GFR (CKD) 14 (>60 ml/min/1.73 sqM); Albumin 2.8 g/dL (3.5-5.0); Anion Gap 17 mmol/L; Blood Urea Nitrogen 50 mg/dL (9-20); Calcium 8.5 mg/dL (8.4-10.2); Carbon Dioxide 21 mmol/L (22-30); Chloride 96 mmol/L (98-107); Glucose 109 mg/dL (74-99); Non-African American GFR(CKD) 12 (>60 ml/min/1.73 sqM); Sodium 134 mmol/L (137-145); Total Protein 5.7 g/dL (6.3-8.2)
[2025-03-30 13:24] LABS: AST 28 U/L (17-59); Alkaline Phosphatase 87 U/L (38-126); Potassium 5.9 mmol/L (3.5-5.1)
--- NOTE | 2025-03-30 13:32 | XR ---
EXAMINATION TYPE: XR chest 1V portable DATE OF EXAM: 03/30/2025 1:14 PM COMPARISON: Chest radiographs from CLINICAL INDICATION: Male, 64 years old with history of Fever; [facility] TECHNIQUE: XR chest 1V portable Frontal view of the chest. FINDINGS: Lungs/Pleura: Multifocal airspace opacities. No evidence of pneumothorax or pleural effusion. Pulmonary vascularity: Unremarkable. Heart/mediastinum: Cardiomediastinal silhouette is unremarkable. Musculoskeletal: No acute osseous pathology. Stimulator leads project over the spine. IMPRESSION: Multifocal airspace opacities concerning for pneumonia. [facility], , 03/30/2025 1:30 PM
[2025-03-30] MEDS: cefTRIAXone IN SWFI 1,000 MG/10 ML SYRINGE IVP STA (14:19)
--- NOTE | 2025-03-30 14:48 | ED ---
Altered Mental Status HPI - General Chief Complaint: Altered Mental Status Stated Complaint: AMS Time Seen by Provider: 03/30/25 12:10 Source: patient, EMS Mode of arrival: EMS Limitations: altered mental status - History of Present Illness Initial Comments: 64-year-old male with past medical history of stroke, congestive heart failure, schizophrenia who presents to the emergency department from [facility]. Patient transferred in for altered mental status. Patient found to be hypotensive and tachycardic. He does have a chronic indwelling Mohr. Output from Mohr is yellow, opaque. No report of any fevers. Patient cannot provide much history. Upon review of the patient's transfer paperwork he was given all of his medications this morning including metoprolol and Lasix. HPI is limited because of the patient's current state - Related Data Home Medications Medication Instructions Recorded Confirmed ARIPiprazole 15 mg PO DAILY 03/03/22 03/30/25 Acetaminophen [Tylenol] 650 mg PO Q4H PRN 03/03/22 03/30/25 Albuterol Sulfate [Albuterol 2 puff INHALATION 03/03/22 03/30/25 Sulfate Hfa] RT-QID@09,13,17,21 Artificial Tears-Hypromellose 1 drop BOTH EYES QID PRN 03/03/22 03/30/25 [Artificial Tear Drops] Artificial Tears-Hypromellose 1 drops BOTH EYES Q12H 03/03/22 03/30/25 [Artificial Tear Drops] Baclofen [Lioresal] 10 mg PO TID@0900,1300,2100 03/03/22 03/30/25 Bismuth Subsalicylate 30 ml PO Q4H PRN 03/03/22 03/30/25 [Pepto-Bismol] Cyanocobalamin [Vitamin B-12] 500 mcg PO DAILY 03/03/22 03/30/25 Fluticasone Propionate [Flonase 1 spr EA NOSTRIL DAILY 03/03/22 03/30/25 Allergy Relief] Folic Acid 1 mg PO DAILY 03/03/22 03/30/25 Furosemide [Lasix] 40 mg PO BID@0600,1300 03/03/22 03/30/25 Isosorbide Mononitrate ER [Imdur] 30 mg PO DAILY 03/03/22 03/30/25 Lovastatin [Mevacor] 20 mg PO HS 03/03/22 03/30/25 Metoprolol Tartrate [Lopressor] 50 mg PO BID 03/03/22 03/30/25 Montelukast Sodium [Singulair] 10 mg PO HS 03/03/22 03/30/25 PARoxetine HCL [Paxil] 10 mg PO DAILY 03/03/22 03/30/25 PARoxetine HCL [Paxil] 40 mg PO DAILY 03/03/22 03/30/25 Refresh P.M. Ointment 1 applic BOTH EYES HS 03/03/22 03/30/25 Sennosides [Senokot] 17.2 mg PO DAILY 03/03/22 03/30/25 Tamsulosin HCl [Flomax] 0.4 mg PO BID 03/03/22 03/30/25 allopurinoL [Zyloprim] 100 mg PO DAILY 03/03/22 03/30/25 lamoTRIgine [LaMICtal] 75 mg PO DAILY 03/03/22 03/30/25 Diclofenac Sodium [Voltaren 1 applic TOPICAL BID 04/17/22 03/30/25 Arthritis Pain 1% Gel] Omeprazole 20 mg PO DAILY@0604/17/22 03/30/25 Benzoyl Peroxide [Benzac AC Wash] 1 applic TOPICAL HS 01/26/24 03/30/25 Fluticasone/Umeclidin/Vilanter 1 puff INHALATION RT-HS 01/26/24 03/30/25 [Trelegy Ellipta 200-62.5-25] Levothyroxine Sodium [Synthroid] 25 mcg PO DAILY@0601/26/24 03/30/25 Loratadine 10 mg PO DAILY 01/26/24 03/30/25 Ocusoft 1 applic BOTH EYES HS 01/26/24 03/30/25 Potassium Chloride [Klor-Con M20] 20 meq PO BID@0600,1300 01/26/24 03/30/25 Primidone 25 mg PO HS 01/26/24 03/30/25 Rimegepant Sulfate [Nurtec Odt] 75 mg PO Q48H PRN 01/26/24 03/30/25 Carbidopa-Levodopa 25-100 mg 1 tab PO TID@0900,1300,2100 03/30/25 03/30/25 [Sinemet 25-100] Cetirizine HCl [Zyrtec] 10 mg PO DAILY 03/30/25 03/30/25 Gabapentin [Neurontin] 800 mg PO TID@0900,1300,2100 03/30/25 03/30/25 HYDROcodone/APAP 7.5-325MG [[place] 1 tab PO BID PRN 03/30/25 03/30/25 7.5-325] Magnesium Oxide [Mag-Ox] 400 mg PO HS 03/30/25 03/30/25 Methyl Salicylate/Menth/Camph 1 patch TOPICAL DAILY 03/30/25 03/30/25 [Salonpas 3.1%-6.0%-10.0% Patch] Tirzepatide [Mounjaro] 10 mg SQ TH 03/30/25 03/30/25 Allergies Allergy/AdvReac Type Severity Reaction Status Date / Time No Known Allergies Allergy Verified 03/30/25 13:54 Review of Systems ROS Statement: Those systems with pertinent positive or pertinent negative responses have been documented in the HPI. ROS Other: All systems not noted in ROS Statement are negative. Past Medical History Past Medical History: Heart Failure, CVA/TIA, Diabetes Mellitus, GERD/Reflux, Hyperlipidemia, Hypertension, Liver Disease, Osteoarthritis (OA), Prostate Disorder, Thyroid Disorder, Vascular Disorder Additional Past Medical History / Comment(s): CVA with left sided deficits, neuromuscular dysfunction of bladder/chronic mohr, BPH, TBI, epilepsy, no seizures since 2018, migraines, pulmonary htn, ileus, hypothyroid, dysphagia/swallows pills, venous insufficiency, chronic rhinitis, fatty liver, past etoh abuse, gout History of Any Multi-Drug Resistant Organisms: VRE Date of last positivie culture/infection: 2017 MDRO Source:: unknown Past Surgical History: Unable to Obtain Past Anesthesia/Blood Transfusion Reactions: No Reported Reaction Date of Last Stent Placement:: march 2022 Past Psychological History: Anxiety, Bipolar, Depression, Schizophrenia Smoking Status: Unknown if ever smoked - Past Family History Mother Family Medical History: Unable to Obtain General Exam Limitations: altered mental status General appearance: lethargic Head exam: Present: atraumatic, normocephalic, normal inspection Eye exam: Present: normal appearance, PERRL, EOMI. Absent: scleral icterus, conjunctival injection, periorbital swelling ENT exam: Present: mucous membranes dry Neck exam: Present: normal inspection. Absent: tenderness, meningismus, ly mphadenopathy Respiratory exam: Present: normal lung sounds bilaterally. Absent: respiratory distress, wheezes, rales, rhonchi, stridor Cardiovascular Exam: Present: tachycardia GI/Abdominal exam: Present: soft, normal bowel sounds. Absent: distended, tenderness, guarding, rebound, rigid Neurological exam: Present: altered Skin exam: Present: diaphoretic Course Vital Signs 03/30/25 03/30/25 03/30/25 12:05 12:17 12:20 Temperature 98.9 F Pulse Rate 125 H 121 H 122 H Respiratory 16 29 H 27 H Rate Blood Pressure 61/30 61/33 61/33 O2 Sat by Pulse 95 98 97 Oximetry 03/30/25 03/30/25 03/30/25 12:30 12:40 12:50 Temperature Pulse Rate 123 H 117 H 115 H Respiratory 26 H Rate Blood Pressure 82/41 79/40 75/41 O2 Sat by Pulse 97 95 99 Oximetry 03/30/25 03/30/25 03/30/25 13:00 13:10 13:20 Temperature Pulse Rate 120 H 120 H 121 H Respiratory 18 Rate Blood Pressure 71/43 82/41 75/40 O2 Sat by Pulse 95 96 97 Oximetry 03/30/25 03/30/25 03/30/25 13:21 13:30 13:50 Temperature 100.0 F H Pulse Rate 120 H 118 H 117 H Respiratory 18 18 18 Rate Blood Pressure 71/47 81/48 72/40 O2 Sat by Pulse 96 95 96 Oximetry 03/30/25 03/30/25 03/30/25 15:20 15:38 15:56 Temperature 99.0 F Pulse Rate 126 H 115 H Respiratory 18 18 Rate Blood Pressure 94/54 61/44 O2 Sat by Pulse 94 L 90 L 96 Oximetry 03/30/25 03/30/25 03/30/25 17:19 18:05 18:26 Temperature 98.1 F Pulse Rate 110 H 106 H 106 H Respiratory 18 18 20 Rate Blood Pressure 60/42 69/47 77/55 O2 Sat by Pulse 97 98 98 Oximetry 03/30/25 03/30/25 03/30/25 19:15 19:20 19:30 Temperature 97.7 F 97.7 F 97.7 F Pulse Rate 90 94 98 Respiratory 18 18 18 Rate Blood Pressure 86/50 104/65 76/54 O2 Sat by Pulse 98 99 99 Oximetry 03/30/25 03/30/25 03/30/25 19:35 19:40 20:00 Temperature 97.7 F 97.7 F 97.7 F Pulse Rate 100 105 H 106 H Respiratory 18 18 18 Rate Blood Pressure 73/46 77/55 83/54 O2 Sat by Pulse 99 99 99 Oximetry 03/30/25 03/30/25 03/30/25 22:57 23:00 23:15 Temperature 98.8 F 100.8 F H Pulse Rate 102 H 106 H 108 H Respiratory 18 15 17 Rate Blood Pressure 99/55 98/63 118/65 O2 Sat by Pulse 100 100 98 Oximetry 03/30/25 03/30/25 03/31/25 23:30 23:45 00:00 Temperature 100.8 F H Pulse Rate 109 H 112 H 111 H Respiratory 17 17 17 Rate Blood Pressure 97/64 102/60 102/62 O2 Sat by Pulse 99 99 98 Oximetry 03/31/25 03/31/25 03/31/25 00:15 00:30 00:45 Temperature Pulse Rate 113 H 113 H 117 H Respiratory 17 17 16 Rate Blood Pressure 111/65 101/65 94/64 O2 Sat by Pulse 97 97 98 Oximetry 03/31/25 03/31/25 03/31/25 01:00 01:15 01:30 Temperature Pulse Rate 121 H 126 H 122 H Respiratory 17 21 18 Rate Blood Pressure 93/58 118/59 90/56 O2 Sat by Pulse 97 73 L 99 Oximetry 03/31/25 03/31/25 03/31/25 01:45 02:00 02:15 Temperature Pulse Rate 124 H 124 H 122 H Respiratory 17 16 17 Rate Blood Pressure 82/51 82/55 84/48 O2 Sat by Pulse 98 98 98 Oximetry 03/31/25 03/31/25 03/31/25 02:30 02:45 03:00 Temperature Pulse Rate 120 H 122 H 122 H Respiratory 16 18 17 Rate Blood Pressure 89/61 90/63 79/56 O2 Sat by Pulse 98 99 98 Oximetry 03/31/25 03/31/25 03/31/25 03:15 03:30 04:00 Temperature 100.6 F H 100 F H Pulse Rate 123 H 122 H 120 H Respiratory 16 12 17 Rate Blood Pressure 90/55 82/55 76/56 O2 Sat by Pulse 99 98 99 Oximetry 03/31/25 03/31/25 03/31/25 05:00 06:00 07:24 Temperature 100.2 F H 99.7 F H Pulse Rate 118 H 114 H 114 H Respiratory 16 15 22 Rate Blood Pressure 93/57 87/64 95/55 O2 Sat by Pulse 99 99 99 Oximetry 03/31/25 03/31/25 03/31/25 08:07 08:48 09:52 Temperature 99.3 F 99.1 F Pulse Rate 100 110 H 101 H Respiratory 20 18 22 Rate Blood Pressure 106/58 98/58 108/66 O2 Sat by Pulse 99 97 99 Oximetry 03/31/25 03/31/25 03/31/25 10:00 11:16 11:34 Temperature 98.6 F 98.6 F Pulse Rate 101 H 92 101 H Respiratory 20 22 20 Rate Blood Pressure 111/53 108/59 109/60 O2 Sat by Pulse 99 99 99 Oximetry 03/31/25 03/31/25 03/31/25 12:24 12:48 13:15 Temperature 98.8 F 99.0 F Pulse Rate 101 H 92 125 H Respiratory 20 18 18 Rate Blood Pressure 113/57 107/55 122/78 O2 Sat by Pulse 99 100 98 Oximetry 03/31/25 03/31/25 03/31/25 13:37 14:02 14:19 Temperature 99.0 F Pulse Rate 121 H 105 H Respiratory 18 20 Rate Blood Pressure 102/54 127/72 70/47 O2 Sat by Pulse 102 H 98 Oximetry 03/31/25 03/31/25 03/31/25 14:36 15:04 15:55 Temperature 99.0 F 99.3 F Pulse Rate 105 H 111 H 116 H Respiratory 18 18 20 Rate Blood Pressure 102/60 92/64 110/55 O2 Sat by Pulse 99 98 98 Oximetry 03/31/25 03/31/25 03/31/25 16:11 16:53 17:18 Temperature 99.5 F 99.9 F H 99.9 F H Pulse Rate 110 H 102 H 156 H Respiratory 18 16 18 Rate Blood Pressure 118/60 98/62 114/90 O2 Sat by Pulse 99 99 98 Oximetry 03/31/25 03/31/2503/31/25 17:39 18:00 18:15 Temperature 100.2 F H Pulse Rate 152 H 130 H 120 H Respiratory 24 20 16 Rate Blood Pressure 105/65 106/63 96/59 O2 Sat by Pulse 99 99 100 Oximetry 03/31/25 03/31/25 03/31/25 18:29 18:56 19:00 Temperature 100.2 F H Pulse Rate 128 H 126 H 138 H Respiratory 18 18 18 Rate Blood Pressure 108/54 106/68 84/58 O2 Sat by Pulse 99 99 98 Oximetry 03/31/25 03/31/25 03/31/25 19:40 19:57 20:05 Temperature 100.4 F H 100.2 F H 100.2 F H Pulse Rate 126 H 121 H 118 H Respiratory 20 20 20 Rate Blood Pressure 84/50 104/53 108/53 O2 Sat by Pulse 98 99 100 Oximetry 03/31/25 03/31/25 03/31/25 20:11 20:21 21:00 Temperature 99.9 F H Pulse Rate 108 H 118 H 105 H Respiratory 20 Rate Blood Pressure 92/63 O2 Sat by Pulse 100 Oximetry 03/31/25 03/31/25 04/01/25 22:00 23:00 00:00 Temperature 99.9 F H 99.9 F H 99.9 F H Pulse Rate 115 H 122 H 126 H Respiratory 20 20 20 Rate Blood Pressure 110/68 124/53 101/77 O2 Sat by Pulse 100 99 97 Oximetry 04/01/25 04/01/25 04/01/25 01:00 02:00 03:00 Temperature 99.0 F 99.0 F 99.5 F Pulse Rate 116 H 115 H 106 H Respiratory 18 18 20 Rate Blood Pressure 108/68 126/74 102/87 O2 Sat by Pulse 100 100 99 Oximetry 04/01/25 04/01/25 04/01/25 04:00 05:00 06:00 Temperature 99.3 F 99.5 F 99.0 F Pulse Rate 121 H 117 H 94 Respiratory 20 20 18 Rate Blood Pressure 129/68 117/65 104/80 O2 Sat by Pulse 99 99 99 Oximetry 04/01/25 04/01/25 04/01/25 07:38 07:45 08:00 Temperature 98.7 F Pulse Rate 118 H 121 H 120 H Respiratory 44 H 23 31 H Rate Blood Pressure 125/75 125/75 127/75 O2 Sat by Pulse 99 99 99 Oximetry 04/01/25 04/01/25 04/01/25 08:04 08:09 08:15 Temperature Pulse Rate 131 H 129 H Respiratory 24 Rate Blood Pressure 130/84 O2 Sat by Pulse 99 98 Oximetry 04/01/25 04/01/25 04/01/25 08:30 08:45 09:00 Temperature 99.5 F Pulse Rate 125 H 131 H 154 H Respiratory 20 27 H 32 H Rate Blood Pressure 93/73 110/67 120/70 O2 Sat by Pulse 99 97 98 Oximetry 04/01/25 04/01/25 04/01/25 09:15 09:30 09:45 Temperature Pulse Rate 152 H 126 H 134 H Respiratory 39 H 40 H 26 H Rate Blood Pressure 129/75 115/62 93/72 O2 Sat by Pulse 97 98 97 Oximetry 04/01/25 04/01/25 04/01/25 10:00 10:15 10:30 Temperature Pulse Rate 123 H 126 H 121 H Respiratory 33 H 28 H 26 H Rate Blood Pressure 102/90 109/68 128/52 O2 Sat by Pulse 99 99 98 Oximetry 04/01/25 04/01/25 04/01/25 10:45 11:00 12:22 Temperature 99.8 F H Pulse Rate 128 H 123 H 125 H Respiratory 21 25 H 19 Rate Blood Pressure 125/65 137/80 119/62 O2 Sat by Pulse 99 97 98 Oximetry 04/01/25 04/01/25 12:30 13:19 Temperature Pulse Rate 134 H Respiratory 39 H Rate Blood Pressure 119/62 O2 Sat by Pulse 98 Oximetry Medical Decision Making - Medical Decision Making Was pt. sent in by a medical professional or institution (, PA, OWNER/OPERATOR, urgent care, hospital, or [facility]...) When possible be specific @ -Patient sent in from [facility] Did you speak to anyone other than the patient for history (EMS, parent, family, police, friend...)? What history was obtained from this source @ -Spoke with EMS for history Did you review nursing and triage notes (agree or disagree)? Why? @ -I reviewed and agree with nursing and triage notes Were old charts reviewed (outside hosp., previous admission, EMS record, old EKG, old radiological studies, urgent care reports/EKG's, [facility] records)? Report findings @ -I reviewed old microbiology cultures on the patient which demonstrated fair ly sensitive bacteria Differential Diagnosis (chest pain, altered mental status, abdominal pain women, abdominal pain men, vaginal bleeding, weakness, fever, dyspnea, syncope, headache, dizziness, GI bleed, back pain, seizure, CVA, palpatations, mental health, musculoskeletal)? @ -Differential Fever: Pneumonia, viral URI, endocarditis, myocarditis, pericarditis, otitis, sinusitis, peritonsillar Abscess, retropharyngeal Abscess, epiglottitis, peritonitis, appendicitis, Silvina cystitis, diverticulitis, hepatitis, colitis, UTI, PID, TOA, pyelonephritis, prostatitis, epididymitis, meningitis, enc ephalitis, pulmonary embolism, CVA, thyroid storm, pancreatitis, adrenal crisis, cavernous sinus thrombosis, this is not meant to be an all-inclusive list. EKG interpreted by me (3pts min.). @ -yes and demonstrates sinus tachycardia with a rate of 128. CT interval 154. QRS 107. Qtc 363. No acute ST segment elevations or depressions X-rays interpreted by me (1pt min.). @ -Yes which demonstrates possible pneumonia CT interpreted by me (1pt min.). @ -None done U/S interpreted by me (1pt. min.). @ -None done What testing was considered but not performed or refused? (CT, X-rays, U/S, labs)? Why? @ -None What meds were considered but not given or refused? Why? @ -None Did you discuss the management of the patient with other professionals (professionals i.e. , PA, OWNER/OPERATOR, lab, RT, psych nurse, oncology social work, sand mill grinder, teacher, morale officer, rn case mgr)? Give summary @ -Spoke with Dr. cochran and dr broderick Was smoking cessation discussed for >3mins.? @ -No Was critical care preformed (if so, how long)? @ -35 minutes for hypotension/septic shock Were there social determinants of health that impacted care today? How? (Homelessness, low income, unemployed, alcoholism, drug addiction, transportation, low edu. Level, literacy, decrease access to med. care, penitentiary, rehab)? @ -No Was there de-escalation of care discussed even if they declined (Discuss DNR or withdrawal of care, Hospice)? DNR status @ -Yes I spoke with public guardian. Patient is a DNR/DNI. I did discuss vasopressors for which the public guardian stated no to a central line. What co-morbidities impacted this encounter? (DM, HTN, Smoking, COPD, CAD, Cancer, CVA, ARF, Chemo, Hep., AIDS, mental health diagnosis, sleep apnea, morbid obesity)? @ -Schizophrenia, hypertension, hyperlipidemia Was patient admitted / discharged? Hospital course, mention meds given and route, prescriptions, significant lab abnormalities, going to OR and other pertinent info. @ -Upon arrival patient was seen and evaluated in trauma 2. Patient cannot provide much history. IVs are established and patient is bolused a liter bolus of normal saline. He is then given 1500 cc of lactated Ringer's for a total of 2500 cc. This is followed by 130 cc of lactated Ringer's per hour. Laboratory studies are conducted. Chest x-ray was performed. Patient found to have UTI and possible pneumonia. He was given Rocephin and azithromycin. Patient remains hypotensive after his fluid bolus. I did call and speak with his guardian John Angela. He does have DNR paperwork that does accompany him. I did discuss vasopressors with the guardian and he refuses. States that he does not want the patient to have a central line. We will continue with antibiotics. I called and spoke with Dr. Burnett. He is agreeable to peripheral vasopressors as we do not have approval to obtain a central line. Dr. Broderick does not accept the admission Undiagnosed new problem with uncertain prognosis? @ -No Drug Therapy requiring intensive monitoring for toxicity (Heparin, Nitro, Insulin, Cardizem)? @ -Peripheral Levophed Were any procedures done? @ -No Diagnosis/symptom? @ -Acute encephalopathy, acute hypotension, acute UTI Acute, or Chronic, or Acute on Chronic? @ -Acute Uncomplicated (without systemic symptoms) or Complicated (systemic symptoms)? @ -Gated Side effects of treatment? @ -No Exacerbation, Progression, or Severe Exacerbation? @ -No Poses a threat to life or bodily function? How? (Chest pain, [place], [place], pneumonia, PE, COPD, DKA, ARF, appy, cholecystitis, CVA, Diverticulitis, Homicidal, Suicidal, threat to staff... and all critical care pts) @ -Yes this patient will be admitted to ICU on pressors - Lab Data Result diagrams: 04/05/25 11:20 04/05/25 11:20 Lab Results 03/30/25 03/30/25 03/30/25 Range/Units 12:08 12:10 12:10 WBC 31.75 H (4.50-10.00) 10*3/uL RBC 5.05 (4.40-5.60) 10*6/uL Hgb 13.6 (13.0-17.0) g/dL Hct 40.7 (39.6-50.0) % MCV 80.6 (80.0-97.0) fL MCH 26.9 L (27.0-32.0) pg MCHC 33.4 (32.0-37.0) g/dL Plt Count 431 (140-440) 10*3/uL MPV 11.2 (9.5-12.2) fL Immature Gran % (Auto) 7.7 % Neutrophils % Not Reportable Neutrophils % (Manual) 95 % Band Neuts % (Manual) 1 % Lymphocytes % Not Reportable Lymphocytes % (Manual) 1 % Monocytes % Not Reportable Monocytes % (Manual) 3 % Eosinophils % Not Reportable Basophils % Not Reportable Immature Gran # 2.46 H (0.00-0.04) 10*3/uL Neutrophils # Not Reportable Neutrophils # (Manual) 30.48 H (1.3-7.7) k/uL Lymphocytes # Not Reportable Lymphocytes # (Manual) 0.32 L (1.0-4.8) k/uL Monocytes # Not Reportable Monocytes # (Manual) 0.95 (0-1.0) k/uL Eosinophils # Not Reportable Basophils # Not Reportable Nucleated RBCs 0 (0-0) /100 WBC Differential Comment P Manual Slide Review Performed PT 15.3 H (10.0-12.5) sec INR 1.5 H (<1.2) APTT 26.7 (22.0-30.0) sec Sodium (137-145) mmol/L Potassium (3.5-5.1) mmol/L Chloride (98-107) mmol/L Carbon Dioxide (22-30) mmol/L Anion Gap mmol/L BUN (9-20) mg/dL Creatinine (0.66-1.25) mg/dL Est GFR (CKD-EPI)AfAm (>60 ml/min/1.73 sqM) Est GFR (CKD-EPI)NonAf (>60 ml/min/1.73 sqM) Glucose (74-99) mg/dL POC Glucose (mg/dL) 117 H (70-110) mg/dL POC Glu Campaign Marketing Specialist ID Quincy Sourav Lactic Ac Sepsis Rflx Plasma Lactic Acid Edgard (0.7-2.0) mmol/L Calcium (8.4-10.2) mg/dL Total Bilirubin (0.2-1.3) mg/dL AST (17-59) U/L ALT (4-49) U/L Alkaline Phosphatase (38-126) U/L Total Protein (6.3-8.2) g/dL Albumin (3.5-5.0) g/dL Urine Color Urine Appearance (Clear) Urine pH (5.0-8.0) Ur Specific Sears (1.001-1.035) Urine Protein (Negative) Urine Glucose (UA) (Negative) Urine Ketones (Negative) Urine Blood (Negative) Urine Nitrite (Negative) Urine Bilirubin (Negative) Urine Urobilinogen (<2.0) mg/dL Ur Leukocyte Esterase (Negative) Urine RBC (0-5) /hpf Urine WBC (0-5) /hpf Urine WBC Clumps (None) /hpf Urine Bacteria (None) /hpf 03/30/25 03/30/25 03/30/25 Range/Units 12:10 12:30 12:52 WBC (4.50-10.00) 10*3/uL RBC (4.40-5.60) 10*6/uL Hgb (13.0-17.0) g/dL Hct (39.6-50.0) % MCV (80.0-97.0) fL MCH (27.0-32.0) pg MCHC (32.0-37.0) g/dL Plt Count (140-440) 10*3/uL MPV (9.5-12.2) fL Immature Gran % (Auto) % Neutrophils % Neutrophils % (Manual) % Band Neuts % (Manual) % Lymphocytes % Lymphocytes % (Manual) % Monocytes % Monocytes % (Manual) % Eosinophils % Basophils % Immature Gran # (0.00-0.04) 10*3/uL Neutrophils # Neutrophils # (Manual) (1.3-7.7) k/uL Lymphocytes # Lymphocytes # (Manual) (1.0-4.8) k/uL Monocytes # Monocytes # (Manual) (0-1.0) k/uL Eosinophils # Basophils # Nucleated RBCs (0-0) /100 WBC Differential Comment Manual Slide Review PT (10.0-12.5) sec INR (<1.2) APTT (22.0-30.0) sec Sodium (137-145) mmol/L Potassium (3.5-5.1) mmol/L Chloride (98-107) mmol/L Carbon Dioxide (22-30) mmol/L Anion Gap mmol/L BUN (9-20) mg/dL Creatinine (0.66-1.25) mg/dL Est GFR (CKD-EPI)AfAm (>60 ml/min/1.73 sqM) Est GFR (CKD-EPI)NonAf (>60 ml/min/1.73 sqM) Glucose (74-99) mg/dL POC Glucose (mg/dL) (70-110) mg/dL POC Glu Campaign Marketing Specialist ID Lactic Ac Sepsis Rflx Y Plasma Lactic Acid Edgard 4.1 H* (0.7-2.0) mmol/L Calcium (8.4-10.2) mg/dL Total Bilirubin (0.2-1.3) mg/dL AST (17-59) U/L ALT (4-49) U/L Alkaline Phosphatase (38-126) U/L Total Protein (6.3-8.2) g/dL Albumin (3.5-5.0) g/dL Urine Color Light Red Urine Appearance Turbid (Clear) Urine pH 7.5 (5.0-8.0) Ur Specific Sears 1.016 (1.001-1.035) Urine Protein 3+ H (Negative) Urine Glucose (UA) Negative (Negative) Urine Ketones Negative (Negative) Urine Blood Moderate H (Negative) Urine Nitrite Negative (Negative) Urine Bilirubin Negative (Negative) Urine Urobilinogen <2.0 (<2.0) mg/dL Ur Leukocyte Esterase Large H (Negative) Urine RBC >182 H (0-5) /hpf Urine WBC >182 H (0-5) /hpf Urine WBC Clumps Many H (None) /hpf Urine Bacteria Occasional H (None) /hpf 03/30/25 Range/Units 12:55 WBC (4.50-10.00) 10*3/uL RBC (4.40-5.60) 10*6/uL Hgb (13.0-17.0) g/dL Hct (39.6-50.0) % MCV (80.0-97.0) fL MCH (27.0-32.0) pg MCHC (32.0-37.0) g/dL Plt Count (140-440) 10*3/uL MPV (9.5-12.2) fL Immature Gran % (Auto) % Neutrophils % Neutrophils % (Manual) % Band Neuts % (Manual) % Lymphocytes % Lymphocytes % (Manual) % Monocytes % Monocytes % (Manual) % Eosinophils % Basophils % Immature Gran # (0.00-0.04) 10*3/uL Neutrophils # Neutrophils # (Manual) (1.3-7.7) k/uL Lymphocytes # Lymphocytes # (Manual) (1.0-4.8) k/uL Monocytes # Monocytes # (Manual) (0-1.0) k/uL Eosinophils # Basophils # Nucleated RBCs (0-0) /100 WBC Differential Comment Manual Slide Review PT (10.0-12.5) sec INR (<1.2) APTT (22.0-30.0) sec Sodium 134 L (137-145) mmol/L Potassium 5.9 H (3.5-5.1) mmol/L Chloride 96 L (98-107) mmol/L Carbon Dioxide 21 L (22-30) mmol/L Anion Gap 17 mmol/L BUN 50 H (9-20) mg/dL Creatinine 4.59 H (0.66-1.25) mg/dL Est GFR (CKD-EPI)AfAm 14 (>60 ml/min/1.73 sqM) Est GFR (CKD-EPI)NonAf 12 (>60 ml/min/1.73 sqM) Glucose 109 H (74-99) mg/dL POC Glucose (mg/dL) (70-110) mg/dL POC Glu Campaign Marketing Specialist ID Lactic Ac Sepsis Rflx Plasma Lactic Acid Edgard (0.7-2.0) mmol/L Calcium 8.5 (8.4-10.2) mg/dL Total Bilirubin 1.5 H (0.2-1.3) mg/dL AST 28 (17-59) U/L ALT 9 (4-49) U/L Alkaline Phosphatase 87 (38-126) U/L Total Protein 5.7 L (6.3-8.2) g/dL Albumin 2.8 L (3.5-5.0) g/dL Urine Color Urine Appearance (Clear) Urine pH (5.0-8.0) Ur Specific Sears (1.001-1.035) Urine Protein (Negative) Urine Glucose (UA) (Negative) Urine Ketones (Negative) Urine Blood (Negative) Urine Nitrite (Negative) Urine Bilirubin (Negative) Urine Urobilinogen (<2.0) mg/dL Ur Leukocyte Esterase (Negative) Urine RBC (0-5) /hpf Urine WBC (0-5) /hpf Urine WBC Clumps (None) /hpf Urine Bacteria (None) /hpf Disposition Clinical Impression: Urinary tract infection, Sepsis, Renal insufficiency, Tachycardia, Hypotension Disposition: [facility] Condition: Serious Is patient prescribed a controlled substance at d/c from ED?: No Time of Disposition: 14:48 Decision to Admit Reason: Admit from EC Decision Date: 03/30/25 Decision Time: 14:48
[2025-03-30] MEDS: AZITHROMYCIN 500 MG in SODIUM CHLORIDE 0.9% 250 ML IVPB STA (15:13)
[2025-03-30] MEDS ORDERED: Magnesium Replacement Protocol 1 EACH MISC MISCELLANE PRN (15:28)
[2025-03-30] MEDS ORDERED: NALOXONE 0.4 MG/ML 1 ML VIAL IV PRN (15:28)
[2025-03-30] MEDS ORDERED: Potassium Replacement Protocol 1 EACH MISC MISCELLANE PRN (15:28)
[2025-03-30] MEDS: PIPERACILLIN-TAZOBACTAM 3.375 GM in SODIUM CHLORIDE 0.9% 100 ML IVPB SCH (16:35)
[2025-03-30] MEDS: NOREPINEPHRINE 8 MG in SODIUM CHLORIDE 0.9% 250 ML IV SCH (16:58)
--- NOTE | 2025-03-30 22:59 | P.CONS ---
History of Present Illness - Reason for Consult Consult date: 03/30/25 UTI, sepsis Requesting physician: Trina Humphries - Chief Complaint Mental status changes hypotension x 1 day - History of Present Illness Patient is a 64-year-old male with a past medical history significant for Heart Failure, CVA/TIA, Diabetes Mellitus, GERD/Reflux, Hyperlipidemia, Hypertension, Liver Disease, Osteoarthritis (OA), Prostate Disorder, Thyroid Di sorder, Vascular Disorder also with the urinary retention requiring chronic indwelling Mohr catheter and [facility] resident patient has been sent to the hospital for evaluation of altered mental status patient also noted to be hypotensive and tachycardic patient noted to have significantly cloudy urine from his Mohr catheter in the bed and the cath have been just changed with the same to the patient has been brought to the hospital on arrival to the ER patient did have a low-grade fever 100 F patient was tachycardic and hypertensive requiring fluid boluses mildly hypoxic currently on a 2 L nasal cannula oxygen patient did have vitamin D3 1.75 with a left shift did have elevated BUN and creatinine liver enzymes are normal urine has been positive patient did have a chest x-ray that was reported multifocal airspace opacity concerning for pneumonia patient was given a dose of Rocephin and azithromycin in the subsequently has been admitted to the hospital infectious disease was consulted for UTI with sepsis and hypotension most information has been obtained from reviewing the chart and talking to the nursing staff as the patient was not able to provide any history Review of Systems Positive points has been mentioned in HPI complete review could not be obtained because of his underlying mental status Past Medical History Past Medical History: Heart Failure, CVA/TIA, Diabetes Mellitus, GERD/Reflux, Hyperlipidemia, Hypertension, Liver Disease, Osteoarthritis (OA), Prostate Disorder, Thyroid Disorder, Vascular Disorder Additional Past Medical History / Comment(s): CVA with left sided deficits, neuromuscular dysfunction of bladder/chronic mohr, BPH, TBI, epilepsy, no seizures since 2018, migraines, pulmonary htn, ileus, hypothyroid, dysphagia/swallows pills, venous insufficiency, chronic rhinitis, fatty liver, past etoh abuse, gout History of Any Multi-Drug Resistant Organisms: VRE Year Discovered:: 2018 MDRO Source:: unknown Past Surgical History: Unable to Obtain Past Anesthesia/Blood Transfusion Reactions: No Reported Reaction Date of Last Stent Placement:: march 2022 Past Psychological History: Anxiety, Bipolar, Depression, Schizophrenia Smoking Status: Unknown if ever smoked - Past Family History Mother Family Medical History: Unable to Obtain Medications and Allergies Home Medications Medication Instructions Recorded Confirmed Type ARIPiprazole 15 mg PO DAILY 03/03/22 03/30/25 History Acetaminophen [Tylenol] 650 mg PO Q4H PRN 03/03/22 03/30/25 History Albuterol Sulfate [Albuterol 2 puff INHALATION 03/03/22 03/30/25 History Sulfate Hfa] RT-QID@09,13,17,21 Artificial Tears-Hypromellose 1 drop BOTH EYES QID PRN 03/03/22 03/30/25 History [Artificial Tear Drops] Artificial Tears-Hypromellose 1 drops BOTH EYES Q12H 03/03/22 03/30/25 History [Artificial Tear Drops] Baclofen [Lioresal] 10 mg PO TID@0900,1300,2100 03/03/22 03/30/25 History Bismuth Subsalicylate 30 ml PO Q4H PRN 03/03/22 03/30/25 History [Pepto-Bismol] Cyanocobalamin [Vitamin B-12] 500 mcg PO DAILY 03/03/22 03/30/25 History Fluticasone Propionate [Flonase 1 spr EA NOSTRIL DAILY 03/03/22 03/30/25 History Allergy Relief] Folic Acid 1 mg PO DAILY 03/03/22 03/30/25 History Furosemide [Lasix] 40 mg PO BID@0600,1300 03/03/22 03/30/25 History Isosorbide Mononitrate ER [Imdur] 30 mg PO DAILY 03/03/22 03/30/25 History Lovastatin [Mevacor] 20 mg PO HS 03/03/22 03/30/25 History Metoprolol Tartrate [Lopressor] 50 mg PO BID 03/03/22 03/30/25 History Montelukast Sodium [Singulair] 10 mg PO HS 03/03/22 03/30/25 History PARoxetine HCL [Paxil] 10 mg PO DAILY 03/03/22 03/30/25 History PARoxetine HCL [Paxil] 40 mg PO DAILY 03/03/22 03/30/25 History Refresh P.M. Ointment 1 applic BOTH EYES HS 03/03/22 03/30/25 History Sennosides [Senokot] 17.2 mg PO DAILY 03/03/22 03/30/25 History Tamsulosin HCl [Flomax] 0.4 mg PO BID 03/03/22 03/30/25 History allopurinoL [Zyloprim] 100 mg PO DAILY 03/03/22 03/30/25 History lamoTRIgine [LaMICtal] 75 mg PO DAILY 03/03/22 03/30/25 History Diclofenac Sodium [Voltaren 1 applic TOPICAL BID 04/17/22 03/30/25 History Arthritis Pain 1% Gel] Omeprazole 20 mg PO DAILY@0600 04/17/22 03/30/25 History Benzoyl Peroxide [Benzac AC Wash] 1 applic TOPICAL HS 01/26/24 03/30/25 History Fluticasone/Umeclidin/Vilanter 1 puff INHALATION RT-HS 01/26/24 03/30/25 History [Trelegy Ellipta 200-62.5-25] Levothyroxine Sodium [Synthroid] 25 mcg PO DAILY@0600 01/26/24 03/30/25 History Loratadine 10 mg PO DAILY 01/26/24 03/30/25 History Ocusoft 1 applic BOTH EYES HS 01/26/24 03/30/25 History Potassium Chloride [Klor-Con M20] 20 meq PO BID@0600,1300 01/26/24 03/30/25 History Primidone 25 mg PO HS 01/26/24 03/30/25 History Rimegepant Sulfate [Nurtec Odt] 75 mg PO Q48H PRN 01/26/24 03/30/25 History Carbidopa-Levodopa 25-100 mg 1 tab PO TID@0900,1300,209903/30/25 03/30/25 Hi story [Sinemet 25-100] Cetirizine HCl [Zyrtec] 10 mg PO DAILY 03/30/25 03/30/25 History Gabapentin [Neurontin] 800 mg PO TID@0900,1300,2100 03/30/25 03/30/25 History HYDROcodone/APAP 7.5-325MG [[place] 1 tab PO BID PRN 03/30/25 03/30/25 History 7.5-325] Magnesium Oxide [Mag-Ox] 400 mg PO HS 03/30/25 03/30/25 History Methyl Salicylate/Menth/Camph 1 patch TOPICAL DAILY 03/30/25 03/30/25 History [Salonpas 3.1%-6.0%-10.0% Patch] Tirzepatide [Mounjaro] 10 mg SQ TH 03/30/25 03/30/25 History Allergies Allergy/AdvReac Type Severity Reaction Status Date / Time No Known Allergies Allergy Verified 03/30/25 13:54 Physical Exam Vitals: Vital Signs Temp Pulse Resp BP Pulse Ox 03/30/25 20:00 97.7 F 106 H 18 83/54 99 03/30/25 19:40 97.7 F 105 H 18 77/55 99 03/30/25 19:35 97.7 F 100 18 73/46 99 03/30/25 19:30 97.7 F 98 18 76/54 99 03/30/25 19:20 97.7 F 94 18 104/65 99 03/30/25 19:15 97.7 F 90 18 86/50 98 03/30/25 18:26 106 H 20 77/55 98 03/30/25 18:05 98.1 F 106 H 18 69/47 98 03/30/25 17:19 110 H 18 60/42 97 03/30/25 15:56 115 H 18 61/44 96 03/30/25 15:38 90 L 03/30/25 15:20 99.0 F 126 H 18 94/54 94 L 03/30/25 13:50 117 H 18 72/40 96 03/30/25 13:30 118 H 18 81/48 95 03/30/25 13:21 100.0 F H 120 H 18 71/47 96 03/30/25 13:20 121 H 18 75/40 97 03/30/25 13:10 120 H 82/41 96 03/30/25 13:00 120 H 71/43 95 03/30/25 12:50 115 H 75/41 99 03/30/25 12:40 117 H 79/40 95 03/30/25 12:30 123 H 26 H 82/41 97 03/30/25 12:20 122 H 27 H 61/33 97 03/30/25 12:17 121 H 29 H 61/33 98 03/30/25 12:05 98.9 F 125 H 16 61/30 95 Intake and Output 03/30/25 03/30/25 03/30/25 06:59 14:59 22:59 Intake Total 60.415 Balance 60.415 Intake: Intake, IV Titration 60.415 Amount Norepinephrine 8 mg In 60.415 Sodium Chloride 0.9% 250 ml @ 0.05 MCG/KG/MIN 10. 971 mls/hr IV .[id number] [facility] Rx#:[id number] Other: Weight 113.398 kg GENERAL DESCRIPTION: Elderly male lying in bed, no distress. No tachypnea or accessory muscle of respiration use. HEENT: Shows Pallor , no scleral icterus. Oral mucous membrane is dry. NECK: Trachea central, no thyromegaly. LUNGS: Unlabored breathing. Decreased breath sound at the base HEART: S1, S2, regular rate and rhythm. No loud murmur ABDOMEN: Soft, no tenderness : Patient did have a indwelling Mohr catheter with significant cloudy urine EXTREMITIES: No edema of feet. SKIN: No rash, no masses palpable. NEUROLOGICAL: The patient is lethargic orientation cannot be determined Results CBC & Chem 7: 03/30/25 12:10 03/30/25 12:55 Labs: Abnormal Lab Results - Last 24 Hours (Table) 03/30/25 03/30/25 03/30/25 Range/Units 12:08 12:10 12:10 WBC 31.75 H (4.50-10.00) 10*3/uL MCH 26.9 L (27.0-32.0) pg Immature Gran # 2.46 H (0.00-0.04) 10*3/uL Neutrophils # (Manual) 30.48 H (1.3-7.7) k/uL Lymphocytes # (Manual) 0.32 L (1.0-4.8) k/uL PT 15.3 H (10.0-12.5) sec INR 1.5 H (<1.2) Sodium (137-145) mmol/L Potassium (3.5-5.1) mmol/L Chloride (98-107) mmol/L Carbon Dioxide (22-30) mmol/L BUN (9-20) mg/dL Creatinine (0.66-1.25) mg/dL Glucose (74-99) mg/dL POC Glucose (mg/dL) 117 H (70-110) mg/dL Plasma Lactic Acid Edgard (0.7-2.0) mmol/L Total Bilirubin (0.2-1.3) mg/dL Total Protein (6.3-8.2) g/dL Albumin (3.5-5.0) g/dL Urine Protein (Negative) Urine Blood (Negative) Ur Leukocyte Esterase (Negative) Urine RBC (0-5) /hpf Urine WBC (0-5) /hpf Urine WBC Clumps (None) /hpf Urine Bacteria (None) /hpf 03/30/25 03/30/25 03/30/25 Range/Units 12:10 12:30 12:55 WBC (4.50-10.00) 10*3/uL MCH (27.0-32.0) pg Immature Gran # (0.00-0.04) 10*3/uL Neutrophils # (Manual) (1.3-7.7) k/uL Lymphocytes # (Manual) (1.0-4.8) k/uL PT (10.0-12.5) sec INR (<1.2) Sodium 134 L (137-145) mmol/L Potassium 5.9 H (3.5-5.1) mmol/L Chloride 96 L (98-107) mmol/L Carbon Dioxide 21 L (22-30) mmol/L BUN 50 H (9-20) mg/dL Creatinine 4.59 H (0.66-1.25) mg/dL Glucose 109 H (74-99) mg/dL POC Glucose (mg/dL) (70-110) mg/dL Plasma Lactic Acid Edgard 4.1 H* (0.7-2.0) mmol/L Total Bilirubin 1.5 H (0.2-1.3) mg/dL Total Protein 5.7 L (6.3-8.2) g/dL Albumin 2.8 L (3.5-5.0) g/dL Urine Protein 3+ H (Negative) Urine Blood Moderate H (Negative) Ur Leukocyte Esterase Large H (Negative) Urine RBC >182 H (0-5) /hpf Urine WBC >182 H (0-5) /hpf Urine WBC Clumps Many H (None) /hpf Urine Bacteria Occasional H (None) /hpf 03/30/25 Range/Units 16:04 WBC (4.50-10.00) 10*3/uL MCH (27.0-32.0) pg Immature Gran # (0.00-0.04) 10*3/uL Neutrophils # (Manual) (1.3-7.7) k/uL Lymphocytes # (Manual) (1.0-4.8) k/uL PT (10.0-12.5) sec INR (<1.2) Sodium (137-145) mmol/L Potassium (3.5-5.1) mmol/L Chloride (98-107) mmol/L Carbon Dioxide (22-30) mmol/L BUN (9-20) mg/dL Creatinine (0.66-1.25) mg/dL Glucose (74-99) mg/dL POC Glucose (mg/dL) (70-110) mg/dL Plasma Lactic Acid Edgard 4.0 H* (0.7-2.0) mmol/L Total Bilirubin (0.2-1.3) mg/dL Total Protein (6.3-8.2) g/dL Albumin (3.5-5.0) g/dL Urine Protein (Negative) Urine Blood (Negative) Ur Leukocyte Esterase (Negative) Urine RBC (0-5) /hpf Urine WBC (0-5) /hpf Urine WBC Clumps (None) /hpf Urine Bacteria (None) /hpf Assessment and Plan (1) Catheter-associated urinary tract infection Current Visit: Yes Status: Acute Code(s): T83.511A - I/I REACT D/T INDWELLING URETHRAL CATHETER, INIT; N39.0 - URINARY TRACT INFECTION, SITE NOT SPECIFIED SNOMED Code(s): 997730495 (2) Sepsis Current Visit: Yes Status: Acute Code(s): A41.9 - SEPSIS, UNSPECIFIED [facility] SNOMED Code(s): 43030974 Plan: 1patient presented to hospital with sepsis in this patient who did have fever tachycardia hypotension elevated white count source likely urinary in this patient did have significantly cloudy urine with a catheter associated UTI and [facility] resident will need to cover for resistant gram-negative 2-blood and urine culture have been obtained results will be followed 3-patient empirically started on Zosyn while waiting for the workup to be completed Prognosis guarded We will follow on clinical condition and cultures to further adjust medication if needed Thank you for this consultation we will follow the patient along with you Dictation was produced using Whimation software. please excuse any grammatical, word or spelling errors.
[2025-03-31] MEDS: ACETAMINOPHEN SUPPOSITORY 650 MG SUPP RECTAL PRN (01:11)
--- NOTE | 2025-03-31 04:14 | HP ---
HISTORY AND PHYSICAL CHIEF COMPLAINT: Change in mental status. HISTORY OF PRESENT ILLNESS: This is a 64-year-old gentleman with past medical history of stroke and CHF, schizophrenia was admitted with change in mental status is following the patient closely. The patient was found to be hypotensive and Quezada catheter-associated UTI and sepsis suspected. Despite IV fluids, the blood pressure is not improving. DrSridhar being consulted and going to transfer him to ICU. He is being considered with some Levophed, but however, the legal guardian clearly indicated the preference to be no code and no central lines at this time. The patient is unresponsive and unable to give a coherent history at this time. PAST MEDICAL HISTORY: Reviewed include CHF, diabetes type 2. Rest of the history from chart was also reviewed. HOME MEDICATIONS: Reviewed include baclofen, dose and rest of medications reviewed. ALLERGIES: None. FAMILY HISTORY: n PHYSICAL EXAMINATION: VITAL SIGNS: Pulse is 115, blood pressure n respirations 18. HEENT: Conjunctivae normal. NECK: n few scattered rhonchi. ABDOMEN: Soft. NERVOUS SYSTEM: Could not be examined. SKIN: No ulcer or rash. LABORATORY DATA: Reviewed. ASSESSMENT: 1. Acute severe sepsis, hypotension related to Quezada catheter present on admission. 2. Acute renal failure. 3. Change in mental status, metabolic encephalopathy. 4. History of congestive heart failure. 5. Diabetes mellitus, type 2. 6. History of cerebrovascular accident. 7. History of liver disease. 8. History of schizophrenia. 9. Multiple complex medical issues. 10.No code. No CPR. 11.No central lines. RECOMMENDATION: This is a 64-year-old gentleman presented with multiple complex medical issues, we will monitor the patient closely. We will initiate broad-spectrum IV antibiotics. Infectious Disease evaluation. Consult . I would recommend possibly Levophed via the peripheral line and continue to monitor. Otherwise, continue with IV fluids cautiously. Prognosis extremely guarded because of multiple complex medical conditions. See orders for details. Once again, the patient is no code and no central line per guardian. MMODL / IJN: [id number] / MTDD
--- NOTE | 2025-03-31 07:20 | XR ---
EXAMINATION TYPE: XR chest 1V portable DATE OF EXAM: 03/31/2025 7:10 AM COMPARISON: Chest radiograph from one day prior. CLINICAL INDICATION: Male, 64 years old with history of chf; [facility] TECHNIQUE: XR chest 1V portable Frontal view of the chest. FINDINGS: Lungs/Pleura: There is no evidence of pleural effusion, focal consolidation, or pneumothorax. Pulmonary vascularity: Pulmonary vascular congestion. Heart/mediastinum: Cardiomediastinal silhouette is enlarged. Musculoskeletal: No acute osseous pathology. Other findings: None IMPRESSION: Cardiomegaly and mild pulmonary vascular congestion. Correlate with BNP for congestive heart failure. [facility], , 03/31/2025 7:18 AM
[2025-03-31 08:10] LABS: Glucose,Whole Blood 86 mg/dL (70-110)
[2025-03-31 11:46] LABS: HCT 37.9 % (39.6-50.0); HGB 12.4 g/dL (13.0-17.0); MCH 26.0 pg (27.0-32.0); MCHC 32.7 g/dL (32.0-37.0); MCV 79.5 fL (80.0-97.0); Platelet Count 335 10*3/uL (140-440); RBC 4.77 10*6/uL (4.40-5.60); RDW 15.7 % (11.5-14.5); WBC 21.66 10*3/uL (4.50-10.00)
[2025-03-31 11:59] LABS: ALT 10 U/L (4-49); AST 32 U/L (17-59); Albumin 2.5 g/dL (3.5-5.0); Alkaline Phosphatase 103 U/L (38-126); Anion Gap 16 mmol/L; Blood Urea Nitrogen 60 mg/dL (9-20); Calcium 8.4 mg/dL (8.4-10.2); Carbon Dioxide 21 mmol/L (22-30); Chloride 101 mmol/L (98-107); Glucose 90 mg/dL (74-99); Potassium 4.9 mmol/L (3.5-5.1); Sodium 138 mmol/L (137-145); Total Protein 5.1 g/dL (6.3-8.2)
[2025-03-31 12:06] LABS: African American GFR (CKD) 17 (>60 ml/min/1.73 sqM); Non-African American GFR(CKD) 15 (>60 ml/min/1.73 sqM)
[2025-03-31 12:51] LABS: Lymphocytes # (M) 0.65 k/uL (1.0-4.8); Monocytes # (M) 0.22 k/uL (0-1.0); Neutrophils # (M) 20.79 k/uL (1.3-7.7); Neutrophils % (M) 96 %; Total Cells Counted 100
[2025-03-31 12:52] LABS: RBC Morphology Normal
[2025-03-31] MEDS: DEXTROSE 5%-0.9% NACL 1,000 ML IV SCH (13:30)
[2025-03-31] MEDS ORDERED: IPRATROPIUM-ALBUTEROL 3 ML NEB INHALATION PRN (14:26)
[2025-03-31] MEDS ORDERED: levETIRAcetam IV 500 MG in SODIUM CHLORIDE 0.9% 250 ML IVPB SCH (14:30)
[2025-03-31] MEDS ORDERED: ARTIFICIAL TEARS-HYPROMELLOSE DROPS 15 ML BTL BOTH EYES PRN (14:55)
[2025-03-31] MEDS: levETIRAcetam IV 500 MG/5 ML VIAL IVP SCH (14:55)
--- NOTE | 2025-03-31 15:13 | P.PN ---
Subjective Progress Note Date: 03/31/25 Principal diagnosis: Reason for follow-up is sepsis UTI and bacteremia Patient is a 64-year-old male with a past medical history significant for Heart Failure, CVA/TIA, Diabetes Mellitus, GERD/Reflux, Hyperlipidemia, Hypertension, Liver Disease, Osteoarthritis (OA), Prostate Disorder, Thyroid Disorder, Vascular Disorder also with the urinary retention requiring chronic indwelling Quezada catheter and custodial resident patient has been sent to the hospital for evaluation of altered mental status, patient be diagnosed with sepsis secondary to catheter associated UTI prompting this consultation. On today's evaluation that is 03/31/2025, Patient did have a low-grade fever of 99 F this afternoon the patient seem to be hemodynamic slightly better requiring less pressor support he is currently on 1.5 L nasal cannula oxygen the patient remains with lethargic unable to provide reliable history. Patient white count is noted 21.66, creatinine 4.03 blood cultures with Klebsiella Objective - Vital Signs Vital signs: Vital Signs Temp 98.8 F 03/31/25 12:24 Pulse 92 03/31/25 12:48 Resp 18 03/31/25 12:48 BP 107/55 03/31/25 12:48 Pulse Ox 100 03/31/25 12:48 FiO2 Intake & Output 03/30/25 03/31/25 03/31/25 18:59 06:59 18:59 Intake Total 20.918 235.081 318.854 Balance 20.918 235.081 318.854 Weight 113.398 kg Intake: Intake, IV Titration 20.918 235.081 318.854 Amount Norepinephrine 8 mg In 20.918 235.081 318.854 Sodium Chloride 0.9% 250 ml @ 0.05 MCG/KG/MIN 10. 971 mls/hr IV .[id number] [facility] Rx#:[id number] - Exam GENERAL DESCRIPTION: An elderly male lying in bed in no distress RESPIRATORY SYSTEM: Unlabored breathing , decreased breath sounds at bases HEART: S1 S2 regular rate and rhythm , ABDOMEN: Soft , no tenderness EXTREMITIES: No edema feet - Labs CBC & Chem 7: 03/31/25 10:57 03/31/25 10:57 Labs: Abnormal Lab Results - Last 24 Hours (Table) 03/30/25 03/30/25 03/30/25 Range/Units 12:10 12:10 12:30 WBC (4.50-10.00) 10*3/uL Hgb (13.0-17.0) g/dL Hct (39.6-50.0) % MCV (80.0-97.0) fL MCH (27.0-32.0) pg Immature Gran # (0.00-0.04) 10*3/uL Neutrophils # (Manual) 30.48 H (1.3-7.7) k/uL Lymphocytes # (Manual) 0.32 L (1.0-4.8) k/uL PT 15.3 H (10.0-12.5) sec INR 1.5 H (<1.2) Sodium (137-145) mmol/L Potassium (3.5-5.1) mmol/L Chloride (98-107) mmol/L Carbon Dioxide (22-30) mmol/L BUN (9-20) mg/dL Creatinine (0.66-1.25) mg/dL Glucose (74-99) mg/dL Plasma Lactic Acid Edgard (0.7-2.0) mmol/L Total Bilirubin (0.2-1.3) mg/dL Total Protein (6.3-8.2) g/dL Albumin (3.5-5.0) g/dL Urine Protein 3+ H (Negative) Urine Blood Moderate H (Negative) Ur Leukocyte Esterase Large H (Negative) Urine RBC >182 H (0-5) /hpf Urine WBC >182 H (0-5) /hpf Urine WBC Clumps Many H (None) /hpf Urine Bacteria Occasional H (None) /hpf 03/30/25 03/30/25 03/31/25 Range/Units 12:55 16:04 10:57 WBC 21.66 H (4.50-10.00) 10*3/uL Hgb 12.4 L (13.0-17.0) g/dL Hct 37.9 L (39.6-50.0) % MCV 79.5 L (80.0-97.0) fL MCH 26.0 L (27.0-32.0) pg Immature Gran # 0.17 H (0.00-0.04) 10*3/uL Neutrophils # (Manual) 20.79 H (1.3-7.7) k/uL Lymphocytes # (Manual) 0.65 L (1.0-4.8) k/uL PT (10.0-12.5) sec INR (<1.2) Sodium 134 L (137-145) mmol/L Potassium 5.9 H (3.5-5.1) mmol/L Chloride 96 L (98-107) mmol/L Carbon Dioxide 21 L (22-30) mmol/L BUN 50 H (9-20) mg/dL Creatinine 4.59 H (0.66-1.25) mg/dL Glucose 109 H (74-99) mg/dL Plasma Lactic Acid Edgard 4.0 H* (0.7-2.0) mmol/L Total Bilirubin 1.5 H (0.2-1.3) mg/dL Total Protein 5.7 L (6.3-8.2) g/dL Albumin 2.8 L (3.5-5.0) g/dL Urine Protein (Negative) Urine Blood (Negative) Ur Leukocyte Esterase (Negative) Urine RBC (0-5) /hpf Urine WBC (0-5) /hpf Urine WBC Clumps (None) /hpf Urine Bacteria (None) /hpf 03/31/25 Range/Units 10:57 WBC (4.50-10.00) 10*3/uL Hgb (13.0-17.0) g/dL Hct (39.6-50.0) % MCV (80.0-97.0) fL MCH (27.0-32.0) pg Immature Gran # (0.00-0.04) 10*3/uL Neutrophils # (Manual) (1.3-7.7) k/uL Lymphocytes # (Manual) (1.0-4.8) k/uL PT (10.0-12.5) sec INR (<1.2) Sodium (137-145) mmol/L Potassium (3.5-5.1) mmol/L Chloride (98-107) mmol/L Carbon Dioxide 21 L (22-30) mmol/L BUN 60 H (9-20) mg/dL Creatinine 4.03 H (0.66-1.25) mg/dL Glucose (74-99) mg/dL Plasma Lactic Acid Edgard (0.7-2.0) mmol/L Total Bilirubin (0.2-1.3) mg/dL Total Protein 5.1 L (6.3-8.2) g/dL Albumin 2.5 L (3.5-5.0) g/dL Urine Protein (Negative) Urine Blood (Negative) Ur Leukocyte Esterase (Negative) Urine RBC (0-5) /hpf Urine WBC (0-5) /hpf Urine WBC Clumps (None) /hpf Urine Bacteria (None) /hpf Assessment and Plan (1) Catheter-associated urinary tract infection Current Visit: Yes Status: Acute Code(s): T83.511A - I/I REACT D/T INDWELLING URETHRAL CATHETER, INIT; N39.0 - URINARY TRACT INFECTION, SITE NOT SP ECIFIED SNOMED Code(s): 338284882 (2) Sepsis Current Visit: Yes Status: Acute Code(s): A41.9 - SEPSIS, UNSPECIFIED ORGANISM SNOMED Code(s): 50027955 (3) Bacteremia Current Visit: Yes Status: Acute Code(s): R78.81 - BACTEREMIA SNOMED Code (s): 1951761 Plan: 1patient presented to hospital with sepsis in this patient who did have fever tachycardia hypotension elevated white count source likely urinary in this patient did have significantly cloudy urine with a catheter associated UTI and custodial resident will need to cover for resistant gram-negative 2-blood culture growing gram-negative bacilli urine culture currently pending 3-patient did have some decrease in the white count we will treat the patient with Zosyn while waiting for the to finalize Dictation was produced using VR1 dictation software. please excuse any grammatical, word or spelling errors. Time with Patient: Less than 30
[2025-03-31] MEDS: LORazepam 1 MG/0.5 ML VIAL IV PRN (16:04)
[2025-03-31] MEDS ORDERED: ALBUTEROL NEBULIZED 2.5 MG/3 ML INHALATION SCH (17:00)
[2025-03-31 17:32] LABS: Glucose,Whole Blood 93 mg/dL (70-110)
[2025-03-31] MEDS: DEXTROSE 5% IN WATER 100 ML with AMIODARONE 150 MG IV ONE (17:47)
[2025-03-31] MEDS: LACTATED RINGERS 1,000 ML IV ONE (17:55)
[2025-03-31] MEDS: AMIODARONE 360 MG in DEXTROSE 5% IN WATER 200 ML IV ONE (17:57)
--- NOTE | 2025-03-31 18:18 | P.CNPUL ---
History of Present Illness Consult date: 03/31/25 History of present illness: This is a 64-year-old male patient, presenting to the emergency department from [facility] on the leg due to altered mentation. The patient was found to be hypotensive, tachycardic and septic. The patient has a chronically indwelling Mohr catheter. The urine output was purulent and cloudy. The Mohr catheter was in place. The patient was found to be quite hypotensive in the emergency department and the patient was started on IV fluids and the patient was given 2 L of lactated Ringer and 1 L of normal saline and the patient is currently on norepinephrine running at 0.1 mcg/kg/min. The patient also on lactated Ringer at rate of 125 cc an hour. The patient without IV Zosyn. The patient is currently on 2 L of oxygen by nasal cannula. He does have diminished level of consciousness. Temperature is 100.2. Remains tachycardic. Remains on 2 L of oxygen by nasal cannula. The chest x-ray at the time of admission showed cardiomegaly with mild pulm vascular congestion. No other acute abnormalities were noted. The patient is a poor historian. He is obese with a body mass index of 33.9. He remains on IV Zosyn at this point. Blood work was reviewed. White seconds 21, hemoglobin 12.4 and a platelet count of 335. BUN is 60 with a creatinine of 4.03, improved compared to yesterday and a sodium levels at 138 with a potassium level of 4.9, serum bicarb is 21, LFTs are normal. Initial lactic acid level was elevated at 4.1 dropped down to 1.6. UA is obviously abnormal and the culture still pending for now. The preliminary blood cultures based on molecular ID is indicating gram-negative bacillus. Review of Systems ROS unobtainable: due to mental status Past Medical History Past Medical History: Heart Failure, CVA/TIA, Diabetes Mellitus, GERD/Reflux, Hyperlipidemia, Hypertension, Liver Disease, Osteoarthritis (OA), Prostate Disorder, Thyroid Disorder, Vascular Disorder Additional Past Medical History / Comment(s): CVA with left sided deficits, neuromuscular dysfunction of bladder/chronic mohr, BPH, TBI, epilepsy, no seizures since 2018, migraines, pulmonary htn, ileus, hypothyroid, dysphagia/swallows pills, venous insufficiency, chronic rhinitis, fatty liver, past etoh abuse, gout History of Any Multi-Drug Resistant Organisms: VRE Date of last positivie culture/infection: 2017 MDRO Source:: unknown Past Surgical History: Unable to Obtain Past Anesthesia/Blood Transfusion Reactions: No Reported Reaction Date of Last Stent Placement:: march 2022 Past Psychological History: Anxiety, Bipolar, Depression, Schizophrenia Smoking Status: Unknown if ever smoked - Past Family History Mother Family Medical History: Unable to Obtain Medications and Allergies Home Medications Medication Instructions Recorded Confirmed Type ARIPiprazole 15 mg PO DAILY 03/03/22 03/30/25 History Acetaminophen [Tylenol] 650 mg PO Q4H PRN 03/03/22 03/30/25 History Albuterol Sulfate [Albuterol 2 puff INHALATION 03/03/22 03/30/25 History Sulfate Hfa] RT-QID@,,17,21 Artificial Tears-Hypromellose 1 drop BOTH EYES QID PRN 03/03/22 03/30/25 History [Artificial Tear Drops] Artificial Tears-Hypromellose 1 drops BOTH EYES Q12H 03/03/22 03/30/25 History [Artificial Tear Drops] Baclofen [Lioresal] 10 mg PO TID@0900,1300,2100 03/03/22 03/30/25 History Bismuth Subsalicylate 30 ml PO Q4H PRN 03/03/22 03/30/25 History [Pepto-Bismol] Cyanocobalamin [Vitamin B-12] 500 mcg PO DAILY 03/03/22 03/30/25 History Fluticasone Propionate [Flonase 1 spr EA NOSTRIL DAILY 03/03/22 03/30/25 History Allergy Relief] Folic Acid 1 mg PO DAILY 03/03/22 03/30/25 History Furosemide [Lasix] 40 mg PO BID@0600,1300 03/03/22 03/30/25 History Isosorbide Mononitrate ER [Imdur] 30 mg PO DAILY 03/03/22 03/30/25 History Lovastatin [Mevacor] 20 mg PO HS 03/03/22 03/30/25 History Metoprolol Tartrate [Lopressor] 50 mg PO BID 03/03/22 03/30/25 History Montelukast Sodium [Singulair] 10 mg PO HS 03/03/22 03/30/25 History PARoxetine HCL [Paxil] 10 mg PO DAILY 03/03/22 03/30/25 History PARoxetine HCL [Paxil] 40 mg PO DAILY 03/03/22 03/30/25 History Refresh P.M. Ointment 1 applic BOTH EYES HS 03/03/22 03/30/25 History Sennosides [Senokot] 17.2 mg PO DAILY 03/03/22 03/30/25 History Tamsulosin HCl [Flomax] 0.4 mg PO BID 03/03/22 03/30/25 History allopurinoL [Zyloprim] 100 mg PO DAILY 03/03/22 03/30/25 History lamoTRIgine [LaMICtal] 75 mg PO DAILY 03/03/22 03/30/25 History Diclofenac Sodium [Voltaren 1 applic TOPICAL BID 04/17/22 03/30/25 History Arthritis Pain 1% Gel] Omeprazole 20 mg PO DAILY@0600 04/17/22 03/30/25 History Benzoyl Peroxide [Benzac AC Wash] 1 applic TOPICAL HS 01/26/24 03/30/25 History Fluticasone/Umeclidin/Vilanter 1 puff INHALATION RT-HS 01/26/24 03/30/25 History [Trelegy Ellipta 200-62.5-25] Levothyroxine Sodium [Synthroid] 25 mcg PO DAILY@0600 01/26/24 03/30/25 History Loratadine 10 mg PO DAILY 01/26/24 03/30/25 History Ocusoft 1 applic BOTH EYES HS 01/26/24 03/30/25 History Potassium Chloride [Klor-Con M20] 20 meq PO BID@0600,1300 01/26/24 03/30/25 History Primidone 25 mg PO HS 01/26/24 03/30/25 History Rimegepant Sulfate [Nurtec Odt] 75 mg PO Q48H PRN 01/26/24 03/30/25 History Carbidopa-Levodopa 25-100 mg 1 tab PO TID@0900,1300,2100 03/30/25 03/30/25 History [Sinemet 25-100] Cetirizine HCl [Zyrtec] 10 mg PO DAILY 03/30/25 03/30/25 History Gabapentin [Neurontin] 800 mg PO TID@0900,1300,2100 03/30/25 03/30/25 History HYDROcodone/APAP 7.5-325MG [[place] 1 tab PO BID PRN 03/30/25 03/30/25 History 7.5-325] Magnesium Oxide [Mag-Ox] 400 mg PO HS 03/30/25 03/30/25 History Methyl Salicylate/Menth/Camph 1 patch TOPICAL DAILY 03/30/25 03/30/25 History [Salonpas 3.1%-6.0%-10.0% Patch] Tirzepatide [Mounjaro] 10 mg SQ TH 03/30/25 03/30/25 History Allergies Allergy/AdvReac Type Severity Reaction Status Date / Time No Known Allergies Allergy Verified 03/30/25 13:54 Physical Exam Vitals: Vital Signs Temp Pulse Resp BP Pulse Ox 03/31/25 09:52 101 H 22 108/66 99 03/31/25 08:48 99.1 F 110 H 18 98/58 97 03/31/25 08:07 99.3 F 100 20 106/58 99 03/31/25 07:24 114 H 22 95/55 99 03/31/25 06:00 99.7 F H 114 H 15 87/64 99 03/31/25 05:00 100.2 F H 118 H 16 93/57 99 03/31/25 04:00 100 F H 120 H 17 76/56 99 03/31/25 03:30 100.6 F H 122 H 12 82/55 98 03/31/25 03:15 123 H 16 90/55 99 03/31/25 03:00 122 H 17 79/56 98 03/31/25 02:45 122 H 18 90/63 99 03/31/25 02:30 120 H 16 89/61 98 03/31/25 02:15 122 H 17 84/48 98 03/31/25 02:00 124 H 16 82/55 98 03/31/25 01:45 124 H 17 82/51 98 03/31/25 01:30 122 H 18 90/56 99 03/31/25 01:15 126 H 21 118/59 73 L 03/31/25 01:00 121 H 17 93/58 97 03/31/25 00:45 117 H 16 94/64 98 03/31/25 00:30 113 H 17 101/65 97 03/31/25 00:15 113 H 17 111/65 97 03/31/25 00:00 100.8 F H 111 H 17 102/62 98 03/30/25 23:45 112 H 17 102/60 99 03/30/25 23:30 109 H 17 97/64 99 03/30/25 23:15 108 H 17 118/65 98 03/30/25 23:00 100.8 F H 106 H 15 98/63 100 03/30/25 22:57 98.8 F 102 H 18 99/55 100 03/30/25 20:00 97.7 F 106 H 18 83/54 99 03/30/25 19:40 97.7 F 105 H 18 77/55 99 03/30/25 19:35 97.7 F 100 18 73/46 99 03/30/25 19:30 97.7 F 98 18 76/54 99 03/30/25 19:20 97.7 F 94 18 104/65 99 03/30/25 19:15 97.7 F 90 18 86/50 98 03/30/25 18:26 106 H 20 77/55 98 03/30/25 18:05 98.1 F 106 H 18 69/47 98 03/30/25 17:19 110 H 18 60/42 97 03/30/25 15:56 115 H 18 61/44 96 03/30/25 15:38 90 L 03/30/25 15:20 99.0 F 126 H 18 94/54 94 L 03/30/25 13:50 117 H 18 72/40 96 03/30/25 13:30 118 H 18 81/48 95 03/30/25 13:21 100.0 F H 120 H 18 71/47 96 03/30/25 13:20 121 H 18 75/40 97 03/30/25 13:10 120 H 82/41 96 03/30/25 13:00 120 H 71/43 95 03/30/25 12:50 115 H 75/41 99 03/30/25 12:40 117 H 79/40 95 03/30/25 12:30 123 H 26 H 82/41 97 03/30/25 12:20 122 H 27 H 61/33 97 03/30/25 12:17 121 H 29 H 61/33 98 06/28/25 12:05 98.9 F 125 H 16 61/30 95 Intake and Output 03/30/25 03/31/25 03/31/25 22:59 06:59 14:59 Intake Total 60.415 195.584 Balance 60.415 195.584 Intake: Intake, IV Titration 60.415 195.584 Amount Norepinephrine 8 mg In 60.415 195.584 Sodium Chloride 0.9% 250 ml @ 0.05 MCG/KG/MIN 10. 971 mls/hr IV .[id number] [facility] Rx#:[id number] The patient appeared lethargic, weak, has diminished level of consciousness, no signs of respite distress, currently on 2 L of oxygen by nasal cannula with a body mass index of 33.9. Breathing is nonlabored. Head exam is unremarkable. No scleral icterus or corneal arcus noted. Neck is without jugular venous distension, thyromegaly, or carotid bruits. Carotid upstrokes are brisk bilaterally. Lungs are clear to auscultation and percussion. Cardiac exam reveals the PMI to be normally sized and situated. Rhythm is regular. First and second heart sounds normal. No murmurs, rubs or gallops. Abdominal exam reveals normal bowel sounds, no masses, no organomegaly and no aortic enlargement. Extremities are nonedematous and both femoral and pedal pulses are diminished in all 4 extremities. Examination of the skin revealed no evidence of significant rashes, suspicious appearing nevi or other concerning lesions. Neurologically, the patient has a nonfocal exam. Moving all 4 extremities and withdrawing to painful stimulation in all 4 extremities. Results - Laboratory Findings CBC and BMP: 03/31/25 10:57 03/31/25 10:57 PT/INR, D-dimer PT 15.3 sec (10.0-12.5) H 03/30/25 12:10 INR 1.5 (<1.2) H 03/30/25 12:10 Abnormal lab findings: Abnormal Labs 03/30/25 03/30/25 03/30/25 12:08 12:10 12:10 WBC 31.75 H MCH 26.9 L Immature Gran # 2.46 H Neutrophils # (Manual) 30.48 H Lymphocytes # (Manual) 0.32 L PT 15.3 H INR 1.5 H Sodium Potassium Chloride Carbon Dioxide BUN Creatinine Glucose POC Glucose (mg/dL) 117 H Plasma Lactic Acid Edgard Total Bilirubin Total Protein Albumin Urine Protein Urine Blood Ur Leukocyte Esterase Urine RBC Urine WBC Urine WBC Clumps Urine Bacteria 03/30/25 03/30/25 03/30/25 12:10 12:30 12:55 WBC MCH Immature Gran # Neutrophils # (Manual) Lymphocytes # (Manual) PT INR Sodium 134 L Potassium 5.9 H Chloride 96 L Carbon Dioxide 21 L BUN 50 H Creatinine 4.59 H Glucose 109 H POC Glucose (mg/dL) Plasma Lactic Acid Edgard 4.1 H* Total Bilirubin 1.5 H Total Protein 5.7 L Albumin 2.8 L Urine Protein 3+ H Urine Blood Moderate H Ur Leukocyte Esterase Large H Urine RBC >182 H Urine WBC >182 H Urine WBC Clumps Many H Urine Bacteria Occasional H 03/30/25 16:04 WBC MCH Immature Gran # Neutrophils # (Manual) Lymphocytes # (Manual) PT INR Sodium Potassium Chloride Carbon Dioxide BUN Creatinine Glucose POC Glucose (mg/dL) Plasma Lactic Acid Edgard 4.0 H* Total Bilirubin Total Protein Albumin Urine Protein Urine Blood Ur Leukocyte Esterase Urine RBC Urine WBC Urine WBC Clumps Urine Bacteria Assessment and Plan Plan: septic shock secondary to gram-negative bacillus, this is likely of urinary source UTI and the patient has a chronic indwelling Mohr catheter in place. Mohr catheter has been replaced. Urine culture and blood culture sent. There is gram-negative bacillus in the blood culture. Change in mental status secondary to above Mild lactic acidosis, improving Acute leukocytosis improving Acute kidney injury, renal function remains impaired it is improving compared to yesterday Acute hypoxic respiratory failure currently on 2 L of oxygen by nasal cannula Hypertension Hyperlipidemia History of CVA with left-sided weakness and deficits History of traumatic brain injury/epilepsy and the patient has chronic bladder dysfunction and the patient has a Mohr catheter in place, permanent Migraines Hypothyroidism Chronic venous insufficiency Allergic rhinitis Fatty liver with previous history of alcohol abuse Gout Plan The patient will be kept on 2 L of oxygen by nasal cannula Awaiting final blood culture urine cultures Mohr catheter has been replaced Headache resuscitated IV fluids and the patient is currently on lactated Ringer at rate of 125 cc an hour. Lactic acid level is normalized. Function is improving. White cell count is also improved. Continue pressors and gradual weaning off to maintain his mean arterial pressure above 65 Resume home medications Monitor mental status Ultrasound of the kidneys, rule out hydronephrosis Resume home medications Will continue to follow, possible ICU admission if the patient continues to be hypotensive and pressor dependent.
--- NOTE | 2025-03-31 18:56 | P.EN ---
Called to bedside for rapid response 64-year-old man with a medical history of CVA with left-sided residual deficits, heart failure, diabetes, hypertension/hyperlipidemia who presented for urosepsis requiring pressors. Patient developed A-fib with RVR with heart rates in the 160s, increasing pressor requirement, as well as worsening obtundation prompting rapid response call. Patient was unable to provide any history at the time of my evaluation, and I understanding of the patient's case was provided by nursing who is at bedside, phone call with the guardian, chart reviewed. Apparently patient has history of urinary retention requiring chronic indwelling Quezada catheter and is a custodial resident who was sent into the hospital for altered mental status, subsequently found to be hypotensive and tachycardiac. Patient remained hypotensive despite multiple fluid boluses and was subsequently started on pressors and escalated to ICU level of care. I discussed the case w ith patient's guardian who advised that patient would be amenable to having central line placement as well as cardioversion for unstable SVT. Upon my evaluation, patient was febrile to 100.2, 92/59, heart rates in the 150s to 160s in atrial fibrillation, Levophed requirement was up to 0.14. On physical exam patient appears to be in hyperactive delirium, tachypneic, appears to be in distress. CBC from earlier today reviewed and shows leukocytosis 21.6, hemoglobin of 12.4. Basic metabolic panel shows BUN of 60, creatinine of 4.03. Liver function test show low albumin of 2.5. Chest x-ray shows low lung volumes, overall appears wet with possible left lower lobe infiltrate. EKG from admission shows sinus tachycardia with left axis deviation. Urine output has been minimal, a total of 600 cc since admission. Assessment/plan: Unstable SVT: Paroxysmal atrial fibrillation with RVR related to septic shock - Patient meets criteria for attempted cardioversion which was done twice at 100 J and 120 J, patient briefly returned to sinus rhythm with multiple PACs and again deteriorated into atrial fibrillation, however, rates were better controlled in the 112-130 range rather than 160 range. - After 2 attempts at cardioversion, no further times were made, patient was bolused with IV fluids - Amiodarone was bolused and drip was started Septic shock: - Patient met indication for central line, which was consented to by patient's public guardian, see separate procedure note for left IJ insertion via ultrasound - Agree with Jaden, follow-up blood cultures which are now growing gram-negative bacilli Goals of care: - Discussed with guardian, would not like to transition into comfort care at this time considering option for ongoing treatment of septic shock, however, remains DNR/DNI I spent 75 minutes of critical care time with this patient excluding central line procedure
--- NOTE | 2025-03-31 18:59 | XR ---
EXAMINATION TYPE: XR chest 1V portable DATE OF EXAM: 03/31/2025 6:46 PM COMPARISON: 03/31/2025 CLINICAL INDICATION: Male, 64 years old with history of CENTRAL LINE PLACEMENT, TECHNIQUE: XR chest 1V portable views of the chest are obtained. FINDINGS: Left IJ central venous line with distal tip in the proximal superior vena cava. Scattered patchy infiltrates noted that are of uncertain etiology. Correlate for underlying pneumonia . The heart is stable. Hilar and mediastinal structures are within normal limits. Degenerative changes are seen of the dorsal spine. IMPRESSION: 1. Scattered patchy infiltrates noted that are of uncertain etiology. Correlate for underlying pneum onia. [facility], , 03/31/2025 6:56 PM
--- NOTE | 2025-03-31 19:00 | P.PCN ---
Date of Procedure: 03/31/25 Preoperative Diagnosis: Septic shock Postoperative Diagnosis: Septic shock Procedure(s) Performed: Central Line insertion: Consent was obtained via patient's public guardian over the phone. Patient was prepped with chlorhexidine, draped in a sterile fashion. Entry point was identified with ultrasound guidance, 2% lidocaine was used to numb the area, then an introducer needle was used to enter the left internal jugular vein. A guidewire was passed into the IJ without any resistance. A small incision was made into the skin, then dilator catheter was then used to prepare the central line. Central line was placed over guidewire into the left internal jugular vein. All 3 ports were aspirated then flushed. The line was sutured into place, Biopatch placed and Tegaderm placed over it. Patient tolerated the procedure well. Chest x-ray was ordered post procedure, which showed good line placement with no complications. Minimal blood loss. banding machine operator: Dr. Ch Primary Contract Consultant: Dr. Singer Anesthesia: local Condition: critical Disposition: ICU Indications for Procedure: Septic shock
[2025-03-31] MEDS: HEPARIN SODIUM 1,000 UN/ML (10ML VL) IV ONE (19:01)
[2025-03-31] MEDS: HEPARIN SOD,PORK IN 0.45% NACL 25,000 UNIT in 0.45% NACL 1 250ML.BAG IV SCH (19:02)
[2025-03-31] MEDS: ATORVASTATIN 10 MG TAB PO SCH (20:10)
[2025-03-31] MEDS: BACLOFEN 10 MG TAB PO SCH (20:10)
[2025-03-31] MEDS: ARTIFICIAL TEARS-HYPROMELLOSE DROPS 15 ML BTL BOTH EYES SCH (20:10)
[2025-03-31] MEDS: CARBIDOPA-LEVODOPA 25-100 MG 1 EACH TAB PO SCH (20:10)
[2025-03-31] MEDS: IPRATROPIUM-ALBUTEROL 3 ML NEB INHALATION SCH (20:10)
[2025-03-31] MEDS: PRIMIDONE 50 MG TAB PO SCH (20:10)
[2025-03-31] MEDS: SYMBICORT 160-4.5 MCG INHALER INHALATION SCH (20:10)
[2025-03-31] MEDS: GABAPENTIN 400 MG CAP PO SCH (20:10)
[2025-03-31] MEDS: MAGNESIUM OXIDE 400 MG TAB PO SCH (20:10)
[2025-03-31] MEDS: TAMSULOSIN 0.4 MG CAP.ER.24H PO SCH (20:11)
[2025-03-31 20:24] LABS: INR 1.4 (<1.2); Partial Thromboplastin Time 35.8 sec (22.0-30.0); Prothrombin Time 15.0 sec (10.0-12.5)
[2025-03-31 20:33] LABS: HCT 37.7 % (39.6-50.0); HGB 12.2 g/dL (13.0-17.0); MCH 26.2 pg (27.0-32.0); MCHC 32.4 g/dL (32.0-37.0); MCV 81.1 fL (80.0-97.0); Platelet Count 331 10*3/uL (140-440); RBC 4.65 10*6/uL (4.40-5.60); RDW 16.0 % (11.5-14.5); WBC 21.00 10*3/uL (4.50-10.00)
[2025-03-31] MEDS: HEPARIN SODIUM 1,000 UN/ML (10ML VL) IV PRN (20:37)
[2025-03-31] MEDS ORDERED: OCUSOFT BOTH EYES SCH (21:00)
[2025-03-31 22:05] LABS: Eosinophils # (M) 0.42 k/uL (0-0.7); Lymphocytes # (M) 0.63 k/uL (1.0-4.8); Monocytes # (M) 0.21 k/uL (0-1.0); Neutrophils # (M) 19.95 k/uL (1.3-7.7); Neutrophils % (M) 95 %; Total Cells Counted 200
[2025-03-31 22:07] LABS: RBC Morphology Normal
--- NOTE | 2025-03-31 23:12 | PN ---
PROGRESS NOTE DATE OF SERVICE: 03/31/2025 SUBJECTIVE: This 64-year-old gentleman, who admitted with change in mental status and hypotension, possibly sepsis related to UTI, related to Quezada catheter, is being closely monitored. The patient on Levophed drip at this time. The sensorium has slightly improved, but the patient is still confused and chest x-ray showed some mild pulmonary vascular congestion. The patient is no code, no CPR or vent, and no central line per the legal guardian. PAST MEDICAL HISTORY: Reviewed. REVIEW OF SYSTEMS: A 14-point review of systems negative except as mentioned earlier. CURRENT MEDICATIONS: Reviewed. PHYSICAL EXAMINATION: VITAL SIGNS: Pulse is 105, blood pressure 127/78, and respirations 20. HEENT: Conjunctivae normal. NECK: No jugular venous distention. CARDIOVASCULAR: S1, S2 muffled. RESPIRATION: Scattered rhonchi. ABDOMEN: Soft and nontender. LABORATORY DATA: Reviewed. ASSESSMENT: 1. Acute severe sepsis hypotension related to Quezada catheter and acute urinary tract infection with sepsis present on admission. 2. Acute renal failure with acute tubular necrosis. 3. Change in mental status, acute metabolic encephalopathy. 4. History of congestive heart failure. 5. Diabetes mellitus, type 2. 6. History of cerebrovascular accident. 7. History of liver disease. 8. History of schizophrenia. 9. Multiple complex medical issues. 10.No code, no CPR, no vent. 11.No central line. RECOMMENDATIONS AND DISCUSSION: Recommend to continue current management and continue symptomatic treatment. Continue the antibiotics. The cultures are negative so far. I would also recommend Infectious Disease as well as Pulmonary consultation. Continue to monitor. Continue with pressors and resuscitate status as before. We will repeat labs. The patient also had history of seizures. I would recommend IV Keppra now and continue to monitor. Further recommendations to follow. MMODL / IJN: [id number] /
[2025-03-31] MEDS: AMIODARONE 450 MG in DEXTROSE 5% IN WATER 250 ML IV SCH (23:26)
[2025-04-01 03:19] LABS: HCT 34.9 % (39.6-50.0); HGB 12.0 g/dL (13.0-17.0); MCH 26.8 pg (27.0-32.0); MCHC 34.4 g/dL (32.0-37.0); MCV 77.9 fL (80.0-97.0); Platelet Count 299 10*3/uL (140-440); RBC 4.48 10*6/uL (4.40-5.60); RDW 15.3 % (11.5-14.5); WBC 21.40 10*3/uL (4.50-10.00)
[2025-04-01 03:20] LABS: ALT 13 U/L (4-49); AST 43 U/L (17-59); African American GFR (CKD) 22 (>60 ml/min/1.73 sqM); Albumin 2.4 g/dL (3.5-5.0); Alkaline Phosphatase 86 U/L (38-126); Anion Gap 12 mmol/L; Blood Urea Nitrogen 61 mg/dL (9-20); Calcium 7.9 mg/dL (8.4-10.2); Carbon Dioxide 20 mmol/L (22-30); Chloride 107 mmol/L (98-107); Glucose 115 mg/dL (74-99); Non-African American GFR(CKD) 19 (>60 ml/min/1.73 sqM); Potassium 4.5 mmol/L (3.5-5.1); Sodium 139 mmol/L (137-145); Total Protein 5.1 g/dL (6.3-8.2)
[2025-04-01 03:35] LABS: INR 1.4 (<1.2); Prothrombin Time 14.3 sec (10.0-12.5)
[2025-04-01] MEDS: LEVOTHYROXINE 25 MCG TAB PO SCH (05:08)
[2025-04-01] MEDS: POTASSIUM CHLORIDE ER 20 MEQ TAB.ER PO SCH (05:09)
--- NOTE | 2025-04-01 07:14 | XR ---
EXAMINATION TYPE: XR chest 1V portable DATE OF EXAM: 04/01/2025 5:50 AM COMPARISON: Chest radiograph from one day prior. CLINICAL INDICATION: Male, 64 years old with history of chf; [facility] TECHNIQUE: XR chest 1V portable Frontal view of the chest. FINDINGS: Lungs/Pleura: There is no evidence of pleural effusion, focal consolidation, or pneumothorax. Pulmonary vascularity: Pulmonary vascular congestion. Heart/mediastinum: Cardiomediastinal silhouette is enlarged. Musculoskeletal: No acute osseous pathology. Stimulator leads project over the spine. Other findings: None left central venous catheter tip in appropriate position of the right spermatic cavoatrial junction. IMPRESSION: Cardiomegaly and mild pulmonary vascular congestion. Correlate with BNP for congestive heart failure. [facility], , 04/01/2025 7:12 AM
[2025-04-01 07:41] LABS: Lymphocytes # (M) 0.86 k/uL (1.0-4.8); Monocytes # (M) 0.21 k/uL (0-1.0); Neutrophils # (M) 20.33 k/uL (1.3-7.7); Neutrophils % (M) 95 %; Total Cells Counted 100
[2025-04-01] MEDS ORDERED: TIOTROPIUM 2.5 MCG INHALER INHALATION SCH (08:00)
[2025-04-01 08:10] LABS: HCT 36.4 % (39.6-50.0); HGB 12.5 g/dL (13.0-17.0); MCH 26.9 pg (27.0-32.0); MCHC 34.3 g/dL (32.0-37.0); MCV 78.3 fL (80.0-97.0); Platelet Count 260 10*3/uL (140-440); RBC 4.65 10*6/uL (4.40-5.60); RDW 15.5 % (11.5-14.5); WBC 19.79 10*3/uL (4.50-10.00)
[2025-04-01] MEDS: CYANOCOBALAMIN 500 MCG TAB PO SCH (08:35)
[2025-04-01] MEDS: FLUTICASONE NASAL 50MCG/SPRAY 16GM BTL EA NOSTRIL SCH (08:35)
[2025-04-01] MEDS: FOLIC ACID 1 MG TAB PO SCH (08:35)
[2025-04-01] MEDS: PARoxetine 20 MG TAB PO SCH (08:36)
[2025-04-01] MEDS: lamoTRIgine 25 MG TAB PO SCH (08:36)
[2025-04-01] MEDS: SENNOSIDES 8.6 MG TAB PO SCH (08:36)
[2025-04-01] MEDS: PARoxetine 10 MG TAB PO SCH (08:36)
[2025-04-01 08:54] LABS: Lymphocytes # (M) 0.59 k/uL (1.0-4.8); Monocytes # (M) 0.59 k/uL (0-1.0); Neutrophils # (M) 18.60 k/uL (1.3-7.7); Neutrophils % (M) 94 %; Total Cells Counted 100
[2025-04-01 08:55] LABS: RBC Morphology Normal
[2025-04-01] MEDS: LORazepam 1 MG/0.5 ML VIAL IV STA (10:20)
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
[2025-04-01 13:57] LABS: Glucose,Whole Blood 102 mg/dL (70-110)
--- NOTE | 2025-04-01 15:01 | P.PN ---
Subjective Progress Note Date: 04/01/25 Principal diagnosis: Septic shock secondary to gram-negative urosepsis This is a 64-year-old male patient, presenting to the emergency department from [facility] on the leg due to altered mentation. The patient was found to be hypotensive, tachycardic and septic. The patient has a chronically indwelling Quezada catheter. The urine output was purulent and cloudy. The Quezada catheter was in place. The patient was found to be quite hypotensive in the emergency department and the patient was started on IV fluids and the patient was given 2 L of lactated Ringer and 1 L of normal saline and the patient is currently on norepinephrine running at 0.1 mcg/kg/min. The patient also on lactated Ringer at rate of 125 cc an hour. The patient without IV Zosyn. The patient is curren tly on 2 L of oxygen by nasal cannula. He does have diminished level of consciousness. Temperature is 100.2. Remains tachycardic. Remains on 2 L of oxygen by nasal cannula. The chest x-ray at the time of admission showed cardiomegaly with mild pulm vascular congestion. No other acute abnormalities were noted. The patient is a poor historian. He is obese with a body mass index of 33.9. He remains on IV Zosyn at this point. Blood work was reviewed. White seconds 21, hemoglobin 12.4 and a platelet count of 335. BUN is 60 with a creatinine of 4.03, improved compared to yesterday and a sodium levels at 138 with a potassium level of 4.9, serum bicarb is 21, LFTs are normal. Initial la ctic acid level was elevated at 4.1 dropped down to 1.6. UA is obviously abnormal and the culture still pending for now. The preliminary blood cultures based on molecular ID is indicating gram-negative bacillus. Patient was seen and examined today on 04/01/2025, patient was seen in the ER, he is on 2 L nasal cannula, receiving IV fluid in the form of D5.9 at 75 cc/h he is also on heparin drip, norepinephrine at 0.12 mcg/kg/min he is also receiving amiodarone at 0.5 mg/min and he is empirically on Zosyn. Patient is arousable but obtunded, his blood cultures are positive for Klebsiella pneumonia and I suspect the primary source is his urine. Patient is now DNR CODE STATUS, he was sent here from the [facility]. Patient himself is not a great historian, and does not seem to be doing well. Continues to have leukocytosis with WBC count of 9.79 hemoglobin 12.5 basic metabolic profile is normal BUN is 61 creatinine 3.21 patient had positive Hemoccult stools. Patient has been seen by many c onsultants. Renal ultrasound showed no evidence of hydronephrosis and no nephrolithiasis. Chest x-ray this morning showed cardiomegaly and mild pulmonary vascular congestion and the basilar atelectasis. Underlying pneumonia is not entirely ruled out but felt to be less likely. Objective - Vital Signs Vital signs: Vital Signs Temp 99.5 F 04/01/25 14:00 Pulse 122 H 04/01/25 14:00 Resp 23 04/01/25 14:00 BP 90/71 04/01/25 14:00 Pulse Ox 97 04/01/25 14:00 FiO2 Intake & Output 03/31/25 04/01/25 04/01/25 18:59 06:59 18:59 Intake Total 516.000 743.682 9398.139 Output Total 2450 770 Balance 516.000 -2101.472 338.139 Weight 113.398 kg Intake: Intake, IV Titration 516.000 236.324 6016.139 Amount Amiodarone 450 mg In 250 Dextrose 5% in Water 250 ml @ 0.5 MG/MIN 16.667 mls/hr IV .Q15H [facility] Rx#: [id number] Dextrose 5%-0.9% NaCl 1, 375 000 ml @ 75 mls/hr IV . [id number] [facility] Rx#:[id number] Heparin Sod,Pork in 0.45% 101.673 125.139 NaCl 25,000 unit In 0.45 % NaCl 1 250ml.bag @ 8. 818 UNITS/KG/HR 9.999 mls /hr IV .Q24H [facility] Rx#: [id number] Norepinephrine 8 mg In 516.000 246.855 258.000 Sodium Chloride 0.9% 250 ml @ 0.05 MCG/KG/MIN 10. 971 mls/hr IV .[id number] [facility] Rx#:[id number] Piperacillin-Tazobactam 3 100 .375 gm In Sodium Chloride 0.9% 100 ml @ 25 mls/hr IVPB Q8HR [facility] Rx# :[id number] Output: Urine 2450 770 Other: Voiding Method Indwelling Catheter - Exam GENERAL DESCRIPTION: Revealed a 64-year-old white male, obese, obtunded, does not seem to be in distress, arousable but does not follow any instructions HEENT: Shows Pallor , no scleral icterus. Oral mucous membrane is dry. NECK: Trachea central, no thyromegaly. LUNGS: Diminished breath sound bilaterally no rhonchi no wheezes HEART: S1, S2, regular rate and rhythm. No loud murmur ABDOMEN: Obese, soft, no tenderness, no megaly no rebound no guarding : Quezada catheter is noted otherwise unremarkable EXTREMITIES: No clubbing edema or cyanosis SKIN: No rash NEUROLOGICAL: Patient is lethargic/obtunded but arousable does not follow any instructions and does not seem to have appropriate mental status/confused - Labs CBC & Chem 7: 04/01/25 07:22 04/01/25 02:27 Labs: Abnormal Lab Results - Last 24 Hours (Table) 03/31/25 03/31/25 04/01/25 Range/Units 19:32 19:32 02:22 WBC 21.00 H 21.40 H (4.50-10.00) 10*3/uL Hgb 12.2 L 12.0 L (13.0-17.0) g/dL Hct 37.7 L 34.9 L (39.6-50.0) % MCV 77.9 L (80.0-97.0) fL MCH 26.2 L 26.8 L (27.0-32.0) pg Immature Gran # 0.14 H 0.16 H (0.00-0.04) 10*3/uL Neutrophils # (Manual) 19.95 H 20.33 H (1.3-7.7) k/uL Lymphocytes # (Manual) 0.63 L 0.86 L (1.0-4.8) k/uL Nucleated RBCs 1 H (0-0) /100 WBC PT 15.0 H (10.0-12.5) sec INR 1.4 H (<1.2) APTT 35.8 H (22.0-30.0) sec Carbon Dioxide (22-30) mmol/L BUN (9-20) mg/dL Creatinine (0.66-1.25) mg/dL Glucose (74-99) mg/dL Calcium (8.4-10.2) mg/dL Total Protein (6.3-8.2) g/dL Albumin (3.5-5.0) g/dL 04/01/25 04/01/25 04/01/25 Range/Units 02:26 02:27 07:22 WBC 19.79 H (4.50-10.00) 10*3/uL Hgb 12.5 L (13.0-17.0) g/dL Hct 36.4 L (39.6-50.0) % MCV 78.3 L (80.0-97.0) fL MCH 26.9 L (27.0-32.0) pg Immature Gran # 0.15 H (0.00-0.04) 10*3/uL Neutrophils # (Manual) 18.60 H (1.3-7.7) k/uL Lymphocytes # (Manual) 0.59 L (1.0-4.8) k/uL Nucleated RBCs (0-0) /100 WBC PT 14.3 H (10.0-12.5) sec INR 1.4 H (<1.2) APTT (22.0-30.0) sec Carbon Dioxide 20 L (22-30) mmol/L BUN 61 H (9-20) mg/dL Creatinine 3.21 H (0.66-1.25) mg/dL Glucose 115 H (74-99) mg/dL Calcium 7.9 L (8.4-10.2) mg/dL Total Protein 5.1 L (6.3-8.2) g/dL Albumin 2.4 L (3.5-5.0) g/dL Microbiology - Last 24 Hours (Table) 03/30/25 12:15 Blood Culture Gram Stain - Preliminary Blood Blood Culture - Preliminary Klebsiella pneum subsp pneum Molecular ID 03/30/25 12:30 Urine Culture - Preliminary Urine,Voided Gram Neg Bacilli 03/30/25 14:30 Blood Culture - Preliminary Blood Assessment and Plan Assessment: Impression: Septic shock most likely source is UTI Acute urinary tract infection in a patient with chronic indwelling Quezada catheter Gram-negative bacteremia Lactic acidosis secondary to above Acute leukocytosis secondary to above Acute kidney injury secondary to acute tubular necrosis Acute hypoxic respiratory failure on 2 L nasal cannula Benign essential hypertension Dyslipidemia History of CVA with chronic left-sided weakness and deficit History of traumatic brain injury and epilepsy and history of bladder dysfunction History of migraine cephalgia History of fatty liver History of gout Chronic venous insufficiency Recommendation: Admit patient to ICU Continue norepinephrine Continue antibiotics Continue IV fluids Resume home meds GI and DVT prophylaxis Renal ultrasound was reviewed no hydronephrosis and no nephrolithiasis Patient is critically ill requiring pressors and fluids and antibiotics as the patient seems to be quite septic but not requiring intubation mechanical ventilation Will follow the patient in the ICU once a bed becomes available. Continue DNR CODE STATUS. Critical care time is 33 minutes Time with Patient: Greater than 30
[2025-04-01] MEDS: DEXMEDETOMIDINE/0.9% NACL(PMX) 400 MCG in EMPTY BAG 1 BAG IV SCH (15:52)
--- NOTE | 2025-04-01 16:51 | XR ---
EXAMINATION TYPE: XR chest 1V confirm line [facility] DATE OF EXAM: 04/01/2025 4:43 PM COMPARISON: Chest radiographs from 04/01/2025 TECHNIQUE: XR chest 1V confirm line [facility] Portable AP radiograph of the chest. CLINICAL INDICATION:Male, 64 years old with history of NGT; FINDINGS: Lungs/Pleura: There is no evidence of pleural effusion, focal consolidation, or pneumothorax. Pulmonary vascularity: Central pulmonary vascular congestion. Heart/mediastinum: Cardiomediastinal silhouette is enlarged and stable. Musculoskeletal: No acute osseous pathology. Other findings: Thoracic spinal stimulator leads identified. Cholecystectomy clips in the right upper quadrant. Lines/Tubes: Nasogastric tube with its distal tip and side-port projecting under the diaphragm and projecting over the gastric lumen. Left internal jugular central venous catheter with distal tip at the cavoatrial junction. IMPRESSION: 1. Appropriate position of left IJ central venous catheter and NG tube. 2. Cardiomegaly with central part of breast congestion. Correlate with BNP for possible congestive h eart failure. [facility], , 04/01/2025 4:49 PM
[2025-04-01 17:45] LABS: Glucose,Whole Blood 103 mg/dL (70-110)
[2025-04-01] MEDS: HALOPERIDOL LACTATE 5 MG/ML 1 ML VIAL IVP STA (18:04)
[2025-04-01] MEDS: ACETAMINOPHEN TAB 325 MG TAB PO PRN (18:47)
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
[2025-04-02 00:13] LABS: Glucose,Whole Blood 140 mg/dL (70-110)
[2025-04-02 06:28] LABS: HCT 32.5 % (39.6-50.0); HGB 10.9 g/dL (13.0-17.0); MCH 26.3 pg (27.0-32.0); MCHC 33.5 g/dL (32.0-37.0); MCV 78.3 fL (80.0-97.0); Platelet Count 284 10*3/uL (140-440); RBC 4.15 10*6/uL (4.40-5.60); RDW 15.5 % (11.5-14.5); WBC 14.20 10*3/uL (4.50-10.00)
[2025-04-02 06:40] LABS: Glucose,Whole Blood 150 mg/dL (70-110)
[2025-04-02 06:43] LABS: African American GFR (CKD) 27 (>60 ml/min/1.73 sqM); Anion Gap 11 mmol/L; Blood Urea Nitrogen 51 mg/dL (9-20); Calcium 8.1 mg/dL (8.4-10.2); Carbon Dioxide 25 mmol/L (22-30); Chloride 112 mmol/L (98-107); Glucose 134 mg/dL (74-99); Magnesium 2.2 mg/dL (1.6-2.3); Non-African American GFR(CKD) 24 (>60 ml/min/1.73 sqM); Potassium 3.7 mmol/L (3.5-5.1); Sodium 148 mmol/L (137-145)
--- NOTE | 2025-04-02 07:15 | P.PN ---
Subjective Progress Note Date: 04/02/25 The patient is a 64-year-old gentleman with a past medical history significant for hypertension and dyslipidemia and history of stroke and also history of traumatic brain injury. The patient currently is completely confused and the history was taken from the chart as well as from the nurse taking care of the patient. The patient was admitted to the hospital with sepsis secondary to UTI. No indication that the patient was experiencing any symptoms of chest pain or chest discomfort. He was found to be hypotensive requiring norepinephrine. He was in acute renal failure as well. We consulted to see the patient because of A-fib with RVR. Apparently the AT was called yesterday and the patient was found to be in A-fib with RVR which is new and subsequently cardioversion was performed but did not last. The patient back in atrial fibrillation and currently he is on heparin IV and he is on amiodarone IV and he is on norepinephrine IV. He continues to be in atrial fibrillation with controlled heart rate on the current medical regimen. Further evaluation was performed including chest x-ray did not show any acute abnormalities and EKG showing atrial fibrillation with diffuse nonspecific ST and T wave abnormalities. He was also in renal failure likely secondary to sepsis and hypotension. No history of atrial fibrillation before. The patient was seen by our service in 2021 and underwent an echo at that point showed normal LV systolic function but the stress test was abnormal but the heart catheterization showed showed no evidence of obstructive coronary artery disease. The physical examination is remarkable for a confused and agitated patient with irregular rhythm and distant heart sounds and diminished breathing sounds bilaterally and no edema was noted in the lower extremities April 02, 2025 The patient was seen and evaluated this morning. He is converted to normal sinus mechanism. I am going to DC amiodarone IV and start the patient on amiodarone orally. He is on heparin IV. I will evaluate the need to start the patient on oral anticoagulation unless he is at high risk of falling and bleeding. Beside that the pressure is better and he is off norepinephrine. The physical examination is remarkable for regular rhythm with diminished breathing sounds bilaterally and no edema was noted in the lower extremities. His kidney function has been improving as well. Assessment UTI/sepsis Hypotension secondary to the above which has improved A-fib likely to be atrial fibrillation of acute illness. Currently the patient is in normal sinus mechanism Acute renal failure secondary to sepsis and hypotension Multiple comorbid conditions Plan DC amiodarone IV and start the patient on oral amiodarone Continue IV anticoagulation for now Follow-up with the patient Objective - Vital Signs Vital signs: Vital Signs Temp 100.0 F H 04/02/25 04:00 Pulse 75 04/02/25 07:00 Resp 17 04/02/25 07:00 BP 125/66 04/02/25 07:00 Pulse Ox 100 04/02/25 07:00 FiO2 Intake & Output 04/01/25 04/02/25 04/02/25 18:59 06:59 18:59 Intake Total 2538.817 0876.306 85 Output Total 1155 1595 100 Balance 378.080 -78.694 -15 Weight 107.6 kg Intake: IV 20 120 10 kvo 20 120 10 Intake, IV Titration 0055.364 1551.306 75 Amount Amiodarone 450 mg In 250 235.56 Dextrose 5% in Water 250 ml @ 0.5 MG/MIN 16.667 mls/hr IV .Q15H [facility] Rx#: [id number] Dexmedetomidine/0.9% NaCl 22.821 59.866 (Pmx) 400 mcg In Empty Bag 1 bag @ 0.2 MCG/KG/HR 5.67 mls/hr IV .[id number] [facility] Rx#:[id number] Dextrose 5%-0.9% NaCl 1, 675 675 75 000 ml @ 75 mls/hr IV . [id number] [facility] Rx#:[id number] Heparin Sod,Pork in 0.45% 207.259 167.880 NaCl 25,000 unit In 0.45 % NaCl 1 250ml.bag @ 8. 818 UNITS/KG/HR 9.999 mls /hr IV .Q24H [facility] Rx#: [id number] Norepinephrine 8 mg In 258.000 258.000 Sodium Chloride 0.9% 250 ml @ 0.05 MCG/KG/MIN 10. 971 mls/hr IV .[id number] [facility] Rx#:[id number] Piperacillin-Tazobactam 3 100 .375 gm In Sodium Chloride 0.9% 100 ml @ 25 mls/hr IVPB Q8HR [facility] Rx# :[id number] Output: Urine 1155 1595 100 Other: Voiding Method Indwelling Catheter Indwelling Catheter - Labs CBC & Chem 7: 04/02/25 05:32 04/02/25 05:32 Labs: Abnormal Lab Results - Last 24 Hours (Table) 04/01/25 04/01/25 04/01/25 Range/Units 02:22 07:22 14:01 WBC 19.79 H (4.50-10.00) 10*3/uL RBC (4.40-5.60) 10*6/uL Hgb 12.5 L (13.0-17.0) g/dL Hct 36.4 L (39.6-50.0) % MCV 78.3 L (80.0-97.0) fL MCH 26.9 L (27.0-32.0) pg Immature Gran # 0.15 H (0.00-0.04) 10*3/uL Neutrophils # (Manual) 20.33 H 18.60 H (1.3-7.7) k/uL Lymphocytes # (Manual) 0.86 L 0.59 L (1.0-4.8) k/uL APTT 31.3 H (22.0-30.0) sec Sodium (137-145) mmol/L Chloride (98-107) mmol/L BUN (9-20) mg/dL Creatinine (0.66-1.25) mg/dL Glucose (74-99) mg/dL POC Glucose (mg/dL) (70-110) mg/dL Calcium (8.4-10.2) mg/dL 04/01/25 04/02/25 04/02/25 Range/Units 22:23 00:12 05:32 WBC 14.20 H (4.50-10.00) 10*3/uL RBC 4.15 L (4.40-5.60) 10*6/uL Hgb 10.9 L (13.0-17.0) g/dL Hct 32.5 L (39.6-50.0) % MCV 78.3 L (80.0-97.0) fL MCH 26.3 L (27.0-32.0) pg Immature Gran # (0.00-0.04) 10*3/uL Neutrophils # (Manual) (1.3-7.7) k/uL Lymphocytes # (Manual) (1.0-4.8) k/uL APTT 35.9 H (22.0-30.0) sec Sodium (137-145) mmol/L Chloride (98-107) mmol/L BUN (9-20) mg/dL Creatinine (0.66-1.25) mg/dL Glucose (74-99) mg/dL POC Glucose (mg/dL) 140 H (70-110) mg/dL Calcium (8.4-10.2) mg/dL 04/02/25 04/02/25 04/02/25 Range/Units 05:32 05:32 06:39 WBC (4.50-10.00) 10*3/uL RBC (4.40-5.60) 10*6/uL Hgb (13.0-17.0) g/dL Hct (39.6-50.0) % MCV (80.0-97.0) fL MCH (27.0-32.0) pg Immature Gran # (0.00-0.04) 10*3/uL Neutrophils # (Manual) (1.3-7.7) k/uL Lymphocytes # (Manual) (1.0-4.8) k/uL APTT 42.3 H (22.0-30.0) sec Sodium 148 H (137-145) mmol/L Chloride 112 H (98-107) mmol/L BUN 51 H (9-20) mg/dL Creatinine 2.70 H (0.66-1.25) mg/dL Glucose 134 H (74-99) mg/dL POC Glucose (mg/dL) 150 H (70-110) mg/dL Calcium 8.1 L (8.4-10.2) mg/dL Microbiology - Last 24 Hours (Table) 03/30/25 14:30 Blood Culture - Preliminary Blood 03/30/25 12:15 Blood Culture Gram Stain - Preliminary Blood Blood Culture - Preliminary Klebsiella pneum subsp pneum Molecular ID 03/30/25 12:30 Urine Culture - Preliminary Urine,Voided Gram Neg Bacilli
[2025-04-02] MEDS: AMIODARONE 200 MG TAB PO SCH (08:50)
[2025-04-02] MEDS: DEXTROSE 5% IN WATER 1,000 ML IV SCH (09:25)
--- NOTE | 2025-04-02 10:06 | P.PN ---
Subjective Seen in follow-up for acute kidney injury. Renal function improving. Nonoliguric. Currently on amiodarone drip and will transition to oral today. On low-dose Levophed. Sodium level 148 today.\ Vital signs are stable. On low-dose Levophed. General: Resting in bed. HEENT: NG tube noted. LUNGS: No audible rhonchi or wheezes. HEART: Rate and Rhythm are regular. ABDOMEN: Nontender. EXTREMITITES: No edema. Objective - Vital Signs Vital signs: Vital Signs Temp 100.0 F H 04/02/25 04:00 Pulse 84 04/02/25 09:39 Resp 19 04/02/25 09:39 BP 125/66 04/02/25 07:00 Pulse Ox 99 04/02/25 09:26 FiO2 Intake & Output 04/01/25 04/02/25 04/02/25 18:59 06:59 18:59 Intake Total 0782.105 1391.306 208.545 Output Total 1155 1595 100 Balance 378.080 -78.694 108.545 Weight 107.6 kg Intake: IV 20 120 10 kvo 20 120 10 Intake, IV Titration 8386.095 6525.306 198.545 Amount Amiodarone 450 mg In 250 235.56 74.724 Dextrose 5% in Water 250 ml @ 0.5 MG/MIN 16.667 mls/hr IV .Q15H [facility] Rx#: [id number] Dexmedetomidine/0.9% NaCl 22.821 59.866 (Pmx) 400 mcg In Empty Bag 1 bag @ 0.2 MCG/KG/HR 5.67 mls/hr IV .[id number] [facility] Rx#:[id number] Dextrose 5%-0.9% NaCl 1, 675 675 75 000 ml @ 75 mls/hr IV . [id number] [facility] Rx#:[id number] Heparin Sod,Pork in 0.45% 207.259 167.880 NaCl 25,000 unit In 0.45 % NaCl 1 250ml.bag @ 8. 818 UNITS/KG/HR 9.999 mls /hr IV .Q24H [facility] Rx#: [id number] Norepinephrine 8 mg In 258.000 258.000 48.821 Sodium Chloride 0.9% 250 ml @ 0.05 MCG/KG/MIN 10. 971 mls/hr IV .[id number] [facility] Rx#:[id number] Piperacillin-Tazobactam 3 100 .375 gm In Sodium Chloride 0.9% 100 ml @ 25 mls/hr IVPB Q8HR [facility] Rx# :[id number] Output: Urine 1155 1595 100 Other: Voiding Method Indwelling Catheter Indwelling Catheter - Labs CBC & Chem 7: 04/02/25 05:32 04/02/25 05:32 Labs: Abnormal Lab Results - Last 24 Hours (Table) 04/01/25 04/01/25 04/02/25 Range/Units 14:01 22:23 00:12 WBC (4.50-10.00) 10*3/uL RBC (4.40-5.60) 10*6/uL Hgb (13.0-17.0) g/dL Hct (39.6-50.0) % MCV (80.0-97.0) fL MCH (27.0-32.0) pg APTT 31.3 H 35.9 H (22.0-30.0) sec Sodium (137-145) mmol/L Chloride (98-107) mmol/L BUN (9-20) mg/dL Creatinine (0.66-1.25) mg/dL Glucose (74-99) mg/dL POC Glucose (mg/dL) 140 H (70-110) mg/dL Calcium (8.4-10.2) mg/dL 04/02/25 04/02/25 04/02/25 Range/Units 05:32 05:32 05:32 WBC 14.20 H (4.50-10.00) 10*3/uL RBC 4.15 L (4.40-5.60) 10*6/uL Hgb 10.9 L (13.0-17.0) g/dL Hct 32.5 L (39.6-50.0) % MCV 78.3 L (80.0-97.0) fL MCH 26.3 L (27.0-32.0) pg APTT 42.3 H (22.0-30.0) sec Sodium 148 H (137-145) mmol/L Chloride 112 H (98-107) mmol/L BUN 51 H (9-20) mg/dL Creatinine 2.70 H (0.66-1.25) mg/dL Glucose 134 H (74-99) mg/dL POC Glucose (mg/dL) (70-110) mg/dL Calcium 8.1 L (8.4-10.2) mg/dL 04/02/25 Range/Units 06:39 WBC (4.50-10.00) 10*3/uL RBC (4.40-5.60) 10*6/uL Hgb (13.0-17.0) g/dL Hct (39.6-50.0) % MCV (80.0-97.0) fL MCH (27.0-32.0) pg APTT (22.0-30.0) sec Sodium (137-145) mmol/L Chloride (98-107) mmol/L BUN (9-20) mg/dL Creatinine (0.66-1.25) mg/dL Glucose (74-99) mg/dL POC Glucose (mg/dL) 150 H (70-110) mg/dL Calcium (8.4-10.2) mg/dL Microbiology - Last 24 Hours (Table) 03/30/25 14:30 Blood Culture - Preliminary Blood 03/30/25 12:15 Blood Culture Gram Stain - Preliminary Blood Blood Culture - Preliminary Klebsiella pneum subsp pneum Molecular ID 03/30/25 12:30 Urine Culture - Preliminary Urine,Voided Gram Neg Bacilli Assessment and Plan Plan: Assessment: 1. Acute kidney injury secondary to ATN secondary to septic shock. Creatinine 4.5 on admission and is 2.7 today. Baseline creatinine near 0.7 from January 2025. No hydronephrosis noted on ultrasound. 2. Septic shock secondary to Klebsiella UTI and bacteremia. On antibiotics and Levophed. 3. A-fib with RVR maintained on IV heparin and amiodarone drip. Cardiology following. 4. Hyperkalemia secondary to acute kidney injury, improved. 5. History of traumatic brain injury. 6. Hypernatremia from lack of oral water intake. Plan: Change fluids to D5W at 75 cc an hour. Repeat sodium level this evening. Wean Levophed. Avoid nephrotoxins. Continue to monitor renal function and urine output.
[2025-04-02] MEDS ORDERED: HALOPERIDOL LACTATE 5 MG/ML 1 ML VIAL IVP PRN (11:19)
[2025-04-02] MEDS ORDERED: LORazepam 1 MG/0.5 ML VIAL IV PRN (11:19)
[2025-04-02 11:38] LABS: Glucose,Whole Blood 157 mg/dL (70-110)
--- NOTE | 2025-04-02 11:40 | P.PN ---
Subjective Progress Note Date: 04/01/25 Principal diagnosis: Reason for follow-up is sepsis UTI and bacteremia Patient is a 64-year-old male with a past medical history significant for Heart Failure, CVA/TIA, Diabetes Mellitus, GERD/Reflux, Hyperlipidemia, Hypertension, Liver Disease, Osteoarthritis (OA), Prostate Disorder, Thyroid Disorder, Vascular Disorder also with the urinary retention requiring chronic indwelling Quzeada catheter and longterm resident patient has been sent to the hospital for evaluation of altered mental status, patient be diagnosed with sepsis secondary to catheter associated UTI prompting this consultation. On today's evaluation that is 04/01/2025, patient did have low-grade fever of 99.8 F this afternoon patient remains to be lethargic breathing comfortably currently on 2 L nasal oxygen no vomiting diarrhea into the change reported by the nursing staff. Patient white count is down to 19.79, creatinine is 3.21 blood and urine growing gram-negative bacilli Objective - Vital Signs Vital signs: Vital Signs Temp 99.5 F 04/01/25 09:00 Pulse 123 H 04/01/25 11:00 Resp 25 H 04/01/25 11:00 BP 137/80 04/01/25 11:00 Pulse Ox 97 04/01/25 11:00 FiO2 Intake & Output 03/31/25 04/01/25 04/01/25 18:59 06:59 18:59 Intake Total 516.000 348.528 755.940 Output Total 2450 495 Balance 516.000 -2101.472 260.940 Weight 113.398 kg Intake: Intake, IV Titration 516.000 348.528 755.940 Amount Dextrose 5%-0.9% NaCl 1, 300 000 ml @ 75 mls/hr IV . [id number] [facility] Rx#:[id number] Heparin Sod,Pork in 0.45% 101.673 125.139 NaCl 25,000 unit In 0.45 % NaCl 1 250ml.bag @ 8. 818 UNITS/KG/HR 9.999 mls /hr IV .Q24H [facility] Rx#: [id number] Norepinephrine 8 mg In 516.000 246.855 230.801 Sodium Chloride 0.9% 250 ml @ 0.05 MCG/KG/MIN 10. 971 mls/hr IV .[id number] [facility] Rx#:[id number] Piperacillin-Tazobactam 3 100 .375 gm In Sodium Chloride 0.9% 100 ml @ 25 mls/hr IVPB Q8HR [facility] Rx# :[id number] Output: Urine 2450 495 Other: Voiding Method Indwelling Catheter - Exam GENERAL DESCRIPTION: An elderly male lying in bed in no distress RESPIRATORY SYSTEM: Unlabored breathing , decreased breath sounds at bases HEART: S1 S2 regular rate and rhythm , ABDOMEN: Soft , no tenderness EXTREMITIES: No edema feet - Labs CBC & Chem 7: 04/02/25 05:32 04/02/25 05:32 Labs: Abnormal Lab Results - Last 24 Hours (Table) 03/31/25 03/31/25 03/31/25 Range/Units 10:57 10:57 19:32 WBC 21.66 H 21.00 H (4.50-10.00) 10*3/uL Hgb 12.4 L 12.2 L (13.0-17.0) g/dL Hct 37.9 L 37.7 L (39.6-50.0) % MCV 79.5 L (80.0-97.0) fL MCH 26.0 L 26.2 L (27.0-32.0) pg Immature Gran # 0.17 H 0.14 H (0.00-0.04) 10*3/uL Neutrophils # (Manual) 20.79 H 19.95 H (1.3-7.7) k/uL Lymphocytes # (Manual) 0.65 L 0.63 L (1.0-4.8) k/uL Nucleated RBCs 1 H (0-0) /100 WBC PT (10.0-12.5) sec INR (<1.2) APTT (22.0-30.0) sec Carbon Dioxide 21 L (22-30) mmol/L BUN 60 H (9-20) mg/dL Creatinine 4.03 H (0.66-1.25) mg/dL Glucose (74-99) mg/dL Calcium (8.4-10.2) mg/dL Total Protein 5.1 L (6.3-8.2) g/dL Albumin 2.5 L (3.5-5.0) g/dL 03/31/25 04/01/25 04/01/25 Range/Units 19:32 02:22 02:26 WBC 21.40 H (4.50-10.00) 10*3/uL Hgb 12.0 L (13.0-17.0) g/dL Hct 34.9 L (39.6-50.0) % MCV 77.9 L (80.0-97.0) fL MCH 26.8 L (27.0-32.0) pg Immature Gran # 0.16 H (0.00-0.04) 10*3/uL Neutrophils # (Manual) 20.33 H (1.3-7.7) k/uL Lymphocytes # (Manual) 0.86 L (1.0-4.8) k/uL Nucleated RBCs (0-0) /100 WBC PT 15.0 H 14.3 H (10.0-12.5) sec INR 1.4 H 1.4 H (<1.2) APTT 35.8 H (22.0-30.0) sec Carbon Dioxide (22-30) mmol/L BUN (9-20) mg/dL Creatinine (0.66-1.25) mg/dL Glucose (74-99) mg/dL Calcium (8.4-10.2) mg/dL Total Protein (6.3-8.2) g/dL Albumin (3.5-5.0) g/dL 04/01/25 04/01/25 Range/Units 02:27 07:22 WBC 19.79 H (4.50-10.00) 10*3/uL Hgb 12.5 L (13.0-17.0) g/dL Hct 36.4 L (39.6-50.0) % MCV 78.3 L (80.0-97.0) fL MCH 26.9 L (27.0-32.0) pg Immature Gran # 0.15 H (0.00-0.04) 10*3/uL Neutrophils # (Manual) 18.60 H (1.3-7.7) k/uL Lymphocytes # (Manual) 0.59 L (1.0-4.8) k/uL Nucleated RBCs (0-0) /100 WBC PT (10.0-12.5) sec INR (<1.2) APTT (22.0-30.0) sec Carbon Dioxide 20 L (22-30) mmol/L BUN 61 H (9-20) mg/dL Creatinine 3.21 H (0.66-1.25) mg/dL Glucose 115 H (74-99) mg/dL Calcium 7.9 L (8.4-10.2) mg/dL Total Protein 5.1 L (6.3-8.2) g/dL Albumin 2.4 L (3.5-5.0) g/dL Microbiology - Last 24 Hours (Table) 03/30/25 12:15 Blood Culture Gram Stain - Preliminary Blood Blood Culture - Preliminary Klebsiella pneum subsp pneum Molecular ID 03/30/25 12:30 Urine Culture - Preliminary Urine,Voided Gram Neg Bacilli 03/30/25 14:30 Blood Culture - Preliminary Blood Assessment and Plan (1) Catheter-associated urinary tract infection Current Visit: Yes Status: Acute Code(s): T83.511A - I/I REACT D/T INDWELLING URETHRAL CATHETER, INIT; N39.0 - URINARY TRACT INFECTION, SITE NOT SPECIFIED SNOMED Code(s): 429834260 (2) Sepsis Current Visit: Yes Status: Acute Code(s): A41.9 - SEPSIS, UNSPECIFIED ORGANISM SNOMED Code(s): 47467576 (3) Bacteremia Current Visit: Yes Status: Acute Code(s): R78.81 - BACTEREMIA SNOMED Code(s): 7459716 Plan: 1patient presented to hospital with sepsis in this patient who did have fever tachycardia hypotension elevated white count source likely urinary in this p atient did have significantly cloudy urine with a catheter associated UTI and longterm resident will need to cover for resistant gram-negative 2-blood culture growing gram-negative bacilli urine culture currently growing gram-negative as well 3-patient did have some improvement in the fever pattern the white count is trending down ultrasound was reported unremarkable no hydronephrosis 4we will treat the patient with Zosyn while waiting for the sensitive to finalize Dictation was produced using [employer] dictation software. please excuse any grammatical, word or spelling errors. Time with Patient: Less than 30
--- NOTE | 2025-04-02 14:48 | P.PN ---
Subjective Progress Note Date: 04/02/25 Principal diagnosis: Septic shock secondary to gram-negative urosepsis This is a 64-year-old male patient, presenting to the emergency department from [facility] on the leg due to altered mentation. The patient was found to be hypotensive, tachycardic and septic. The patient has a chronically indwelling Quezada catheter. The urine output was purulent and cloudy. The Quezada catheter was in place. The patient was found to be quite hypotensive in the emergency department and the patient was started on IV fluids and the patient was given 2 L of lactated Ringer and 1 L of normal saline and the patient is currently on norepinephrine running at 0.1 mcg/kg/min. The patient also on lactated Ringer at rate of 125 cc an hour. The patient without IV Zosyn. The patient is curren tly on 2 L of oxygen by nasal cannula. He does have diminished level of consciousness. Temperature is 100.2. Remains tachycardic. Remains on 2 L of oxygen by nasal cannula. The chest x-ray at the time of admission showed cardiomegaly with mild pulm vascular congestion. No other acute abnormalities were noted. The patient is a poor historian. He is obese with a body mass index of 33.9. He remains on IV Zosyn at this point. Blood work was reviewed. White seconds 21, hemoglobin 12.4 and a platelet count of 335. BUN is 60 with a creatinine of 4.03, improved compared to yesterday and a sodium levels at 138 with a potassium level of 4.9, serum bicarb is 21, LFTs are normal. Initial la ctic acid level was elevated at 4.1 dropped down to 1.6. UA is obviously abnormal and the culture still pending for now. The preliminary blood cultures based on molecular ID is indicating gram-negative bacillus. Patient was seen and examined today on 04/01/2025, patient was seen in the ER, he is on 2 L nasal cannula, receiving IV fluid in the form of D5.9 at 75 cc/h he is also on heparin drip, norepinephrine at 0.12 mcg/kg/min he is also receiving amiodarone at 0.5 mg/min and he is empirically on Zosyn. Patient is arousable but obtunded, his blood cultures are positive for Klebsiella pneumonia and I suspect the primary source is his urine. Patient is now DNR CODE STATUS, he was sent here from the [facility]. Patient himself is not a great historian, and does not seem to be doing well. Continues to have leukocytosis with WBC count of 9.79 hemoglobin 12.5 basic metabolic profile is normal BUN is 61 creatinine 3.21 patient had positive Hemoccult stools. Patient has been seen by many c onsultants. Renal ultrasound showed no evidence of hydronephrosis and no nephrolithiasis. Chest x-ray this morning showed cardiomegaly and mild pulmonary vascular congestion and the basilar atelectasis. Underlying pneumonia is not entirely ruled out but felt to be less likely. Patient was seen today on 04/02/2025, remains in the ICU, patient is comfortable, not in any distress, he is on a very small tiny dose of Precedex, patient has positive blood cultures and positive urine cultures for Klebsiella, sensitive to Zosyn and the patient is actually on Zosyn. Patient is not requiring any press ors, he is on D5W at 75 cc/h plan to discontinue Precedex this morning, patient has been seen by many consultants, O2 saturation 99% on 3 L, I plan to transfer the patient to 3 S. today, out of the ICU. CODE STATUS remains DNR. WBC count is 14.2 hemoglobin 10.9 sodium is 148 BUN 51 creatinine 2.70, steadily improving compared to creatinine of 4.59 on his initial presentation on 03/30. Objective - Vital Signs Vital signs: Vital Signs Temp 97.8 F 04/02/25 12:00 Pulse 85 04/02/25 13:21 Resp 18 04/02/25 13:21 BP 101/58 04/02/25 12:15 Pulse Ox 100 04/02/25 12:15 FiO2 2 04/02/25 11:45 Intake & Output 04/01/25 04/02/25 04/02/25 18:59 06:59 18:59 Intake Total 9401.481 6063.306 740.922 Output Total 1155 1595 390 Balance 378.080 -78.694 350.922 Weight 107.6 kg Intake: IV 20 120 30 kvo 20 120 30 Intake, IV Titration 6247.075 7755.306 710.922 Amount Amiodarone 450 mg In 250 235.56 74.724 Dextrose 5% in Water 250 ml @ 0.5 MG/MIN 16.667 mls/hr IV .Q15H [facility] Rx#: [id number] Dexmedetomidine/0.9% NaCl 22.821 59.866 31.232 (Pmx) 400 mcg In Empty Bag 1 bag @ 0.2 MCG/KG/HR 5.67 mls/hr IV .[id number] [facility] Rx#:[id number] Dextrose 5% in Water 1, 225 000 ml @ 75 mls/hr IV . [id number] [facility] Rx#:[id number] Dextrose 5%-0.9% NaCl 1, 675 675 75 000 ml @ 75 mls/hr IV . [id number] [facility] Rx#:[id number] Heparin Sod,Pork in 0.45% 207.259 167.880 250 NaCl 25,000 unit In 0.45 % NaCl 1 250ml.bag @ 8. 818 UNITS/KG/HR 9.999 mls /hr IV .Q24H [facility] Rx#: [id number] Norepinephrine 8 mg In 258.000 258.000 54.966 Sodium Chloride 0.9% 250 ml @ 0.05 MCG/KG/MIN 10. 971 mls/hr IV .[id number] [facility] Rx#:[id number] Piperacillin-Tazobactam 3 100 .375 gm In Sodium Chloride 0.9% 100 ml @ 25 mls/hr IVPB Q8HR [facility] Rx# :[id number] Output: Urine 1155 1595 390 Other: Voiding Method Indwelling Catheter Indwelling Catheter Indwelling Catheter - Exam GENERAL DESCRIPTION: Revealed a 64-year-old white male, obese, not in any distress, on 3 L nasal cannula less encephalopathic today. HEENT: Shows Pallor , no scleral icterus. Oral mucous membrane is dry. NECK: Trachea central, no thyromegaly. LUNGS: Diminished breath sound bilaterally no rhonchi no wheezes HEART: S1, S2, regular rate and rhythm. No loud murmur ABDOMEN: Obese, soft, no tenderness, no megaly no rebound no guarding : Quezada catheter is noted otherwise unremarkable EXTREMITIES: No clubbing edema or cyanosis SKIN: No rash NEUROLOGICAL: Alert oriented x 3 no gross focal deficit - Labs CBC & Chem 7: 04/02/25 05:32 04/02/25 05:32 Labs: Abnormal Lab Results - Last 24 Hours (Table) 04/01/25 04/01/25 04/02/25 Range/Units 14:01 22:23 00:12 WBC (4.50-10.00) 10*3/uL RBC (4.40-5.60) 10*6/uL Hgb (13.0-17.0) g/dL Hct (39.6-50.0) % MCV (80.0-97.0) fL MCH (27.0-32.0) pg APTT 31.3 H 35.9 H (22.0-30.0) sec Sodium (137-145) mmol/L Chloride (98-107) mmol/L BUN (9-20) mg/dL Creatinine (0.66-1.25) mg/dL Glucose (74-99) mg/dL POC Glucose (mg/dL) 140 H (70-110) mg/dL Calcium (8.4-10.2) mg/dL 04/02/25 04/02/25 04/02/25 Range/Units 05:32 05:32 05:32 WBC 14.20 H (4.50-10.00) 10*3/uL RBC 4.15 L (4.40-5.60) 10*6/uL Hgb 10.9 L (13.0-17.0) g/dL Hct 32.5 L (39.6-50.0) % MCV 78.3 L (80.0-97.0) fL MCH 26.3 L (27.0-32.0) pg APTT 42.3 H (22.0-30.0) sec Sodium 148 H (137-145) mmol/L Chloride 112 H (98-107) mmol/L BUN 51 H (9-20) mg/dL Creatinine 2.70 H (0.66-1.25) mg/dL Glucose 134 H (74-99) mg/dL POC Glucose (mg/dL) (70-110) mg/dL Calcium 8.1 L (8.4-10.2) mg/dL 04/02/25 04/02/25 Range/Units 06:39 11:37 WBC (4.50-10.00) 10*3/uL RBC (4.40-5.60) 10*6/uL Hgb (13.0-17.0) g/dL Hct (39.6-50.0) % MCV (80.0-97.0) fL MCH (27.0-32.0) pg APTT (22.0-30.0) sec Sodium (137-145) mmol/L Chloride (98-107) mmol/L BUN (9-20) mg/dL Creatinine (0.66-1.25) mg/dL Glucose (74-99) mg/dL POC Glucose (mg/dL) 150 H 157 H (70-110) mg/dL Calcium (8.4-10.2) mg/dL Microbiology - Last 24 Hours (Table) 03/30/25 12:15 Blood Culture Gram Stain - Final Blood Blood Culture - Final Klebsiella pneum subsp pneum Molecular ID 03/30/25 14:30 Blood Culture - Preliminary Blood Assessment and Plan Assessment: Impression: Septic shock most likely source is UTI most likely Klebsiella pneumoniae Acute urinary tract infection in a patient with chronic indwelling Quezada catheter Gram-negative bacteremia suspect secondary to Klebsiella pneumoniae on Zosyn. 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 medical floor. Continue DNR CODE STATUS. Time with Patient: Less than 30
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
[2025-04-02] MEDS ORDERED: ZINC OXIDE PASTE (Z-GUARD) 1 APPLIC TOPICAL PRN (19:14)
[2025-04-02] MEDS: HYDROcodone/APAP 7.5-325MG 1 EACH TAB PO PRN (21:11)
--- NOTE | 2025-04-03 08:02 | P.PN ---
Subjective Progress Note Date: 04/02/25 Principal diagnosis: Reason for follow-up is sepsis UTI and bacteremia Patient is a 64-year-old male with a past medical history significant for Heart Failure, CVA/TIA, Diabetes Mellitus, GERD/Reflux, Hyperlipidemia, Hypertension, Liver Disease, Osteoarthritis (OA), Prostate Disorder, Thyroid Disorder, Vascular Disorder also with the urinary retention requiring chronic indwelling Quezada catheter and custodial resident patient has been sent to the hospital for evaluation of altered mental status, patient be diagnosed with sepsis secondary to catheter associated UTI prompting this consultation. On today's evaluation that is 04/02/2025, Patient is afebrile this morning patient is more awake and alert today denies having any chest pain shortness of breath or cough, the patient is currently on 2 L nasal cannula oxygen, patient denies any abdominal pain no diarrhea no nausea no vomiting. Patient white count is down to 14.20 platelets 2.70 blood and urine with Klebsiella consider pathogen Objective - Vital Signs Vital signs: Vital Signs Temp 98.0 F 04/02/25 08:00 Pulse 80 04/02/25 10:15 Resp 17 04/02/25 10:15 BP 103/56 04/02/25 10:15 Pulse Ox 99 04/02/25 10:15 FiO2 Intake & Output 04/01/25 04/02/25 04/02/25 18:59 06:59 18:59 Intake Total 3173.833 6726.306 459.690 Output Total 1155 1595 390 Balance 378.080 -78.694 69.690 Weight 107.6 kg Intake: IV 20 120 30 kvo 20 120 30 Intake, IV Titration 0020.687 0205.306 429.690 Amount Amiodarone 450 mg In 250 235.56 74.724 Dextrose 5% in Water 250 ml @ 0.5 MG/MIN 16.667 mls/hr IV .Q15H [facility] Rx#: [id number] Dexmedetomidine/0.9% NaCl 22.821 59.866 (Pmx) 400 mcg In Empty Bag 1 bag @ 0.2 MCG/KG/HR 5.67 mls/hr IV .[id number] [facility] Rx#:[id number] Dextrose 5% in Water 1, 225 000 ml @ 75 mls/hr IV . [id number] [facility] Rx#:[id number] Dextrose 5%-0.9% NaCl 1, 675 675 75 000 ml @ 75 mls/hr IV . [id number] [facility] Rx#:[id number] Heparin Sod,Pork in 0.45% 207.259 167.880 NaCl 25,000 unit In 0.45 % NaCl 1 250ml.bag @ 8. 818 UNITS/KG/HR 9.999 mls /hr IV .Q24H [facility] Rx#: [id number] Norepinephrine 8 mg In 258.000 258.000 54.966 Sodium Chloride 0.9% 250 ml @ 0.05 MCG/KG/MIN 10. 971 mls/hr IV .[id number] [facility] Rx#:[id number] Piperacillin-Tazobactam 3 100 .375 gm In Sodium Chloride 0.9% 100 ml @ 25 mls/hr IVPB Q8HR [facility] Rx# :[id number] Output: Urine 1155 1595 390 Other: Voiding Method Indwelling Catheter Indwelling Catheter - Exam GENERAL DESCRIPTION: An elderly male lying in bed in no distress RESPIRATORY SYSTEM: Unlabored breathing , decreased breath sounds at bases HEART: S1 S2 regular rate and rhythm , ABDOMEN: Soft , no tenderness EXTREMITIES: No edema feet - Labs CBC & Chem 7: 04/02/25 05:32 04/02/25 15:58 Labs: Abnormal Lab Results - Last 24 Hours (Table) 04/01/25 04/01/25 04/02/25 Range/Units 14:01 22:23 00:12 WBC (4.50-10.00) 10*3/uL RBC (4.40-5.60) 10*6/uL Hgb (13.0-17.0) g/dL Hct (39.6-50.0) % MCV (80.0-97.0) fL MCH (27.0-32.0) pg APTT 31.3 H 35.9 H (22.0-30.0) sec Sodium (137-145) mmol/L Chloride (98-107) mmol/L BUN (9-20) mg/dL Creatinine (0.66-1.25) mg/dL Glucose (74-99) mg/dL POC Glucose (mg/dL) 140 H (70-110) mg/dL Calcium (8.4-10.2) mg/dL 04/02/25 04/02/25 04/02/25 Range/Units 05:32 05:32 05:32 WBC 14.20 H (4.50-10.00) 10*3/uL RBC 4.15 L (4.40-5.60) 10*6/uL Hgb 10.9 L (13.0-17.0) g/dL Hct 32.5 L (39.6-50.0) % MCV 78.3 L (80.0-97.0) fL MCH 26.3 L (27.0-32.0) pg APTT 42.3 H (22.0-30.0) sec Sodium 148 H (137-145) mmol/L Chloride 112 H (98-107) mmol/L BUN 51 H (9-20) mg/dL Creatinine 2.70 H (0.66-1.25) mg/dL Glucose 134 H (74-99) mg/dL POC Glucose (mg/dL) (70-110) mg/dL Calcium 8.1 L (8.4-10.2) mg/dL 04/02/25 04/02/25 Range/Units 06:39 11:37 WBC (4.50-10.00) 10*3/uL RBC (4.40-5.60) 10*6/uL Hgb (13.0-17.0) g/dL Hct (39.6-50.0) % MCV (80.0-97.0) fL MCH (27.0-32.0) pg APTT (22.0-30.0) sec Sodium (137-145) mmol/L Chloride (98-107) mmol/L BUN (9-20) mg/dL Creatinine (0.66-1.25) mg/dL Glucose (74-99) mg/dL POC Glucose (mg/dL) 150 H 157 H (70-110) mg/dL Calcium (8.4-10.2) mg/dL Microbiology - Last 24 Hours (Table) 03/30/25 14:30 Blood Culture - Preliminary Blood 03/30/25 12:15 Blood Culture Gram Stain - Preliminary Blood Blood Culture - Preliminary Klebsiella pneum subsp pneum Molecular ID 03/30/25 12:30 Urine Culture - Preliminary Urine,Voided Gram Neg Bacilli Assessment and Plan (1) Catheter-associated urinary tract infection Current Visit: Yes Status: Acute Code(s): T83.511A - I/I REACT D/T INDWELLING URETHRAL CATHETER, INIT; N39.0 - URINARY TRACT INFECTION, SITE NOT SPECIFIED SNOMED Code(s): 508196858 (2) Sepsis Current Visit: Yes Status: Acute Code(s): A41.9 - SEPSIS, UNSPECIFIED ORGANISM SNOMED Code(s): 56656458 (3) Bacteremia Current Visit: Yes Status: Acute Code(s): R78.81 - BACTEREMIA SNOMED Code(s): 2590881 Plan: 1patient presented to hospital with sepsis in this patient who did have fever tachycardia hypotension elevated white count source likely urinary in this patient did have significantly cloudy urine with a catheter associated UTI and custodial resident will need to cover for resistant gram-negative 2-blood culture growing gram-negative bacilli urine culture currently growing gram-negative as well 3-patient did have some improvement in the fever pattern the white count is trending down ultrasound was reported unremarkable no hydronephrosis 4patient is currently being treated with Zosyn waiting for the final sensitivities to narrow antibiotic Dictation was produced using [employer] dictation software. please excuse any grammatical, word or spelling errors. Time with Patient: Less than 30
[2025-04-03 09:05] LABS: Basophils # (A) 0.05 10*3/uL (0.00-0.10); Basophils % (A) 0.4 %; Eosinophils # (A) 0.75 10*3/uL (0.04-0.35); Eosinophils % (A) 6.7 %; HCT 30.1 % (39.6-50.0); HGB 10.0 g/dL (13.0-17.0); Lymphocytes # (A) 0.70 10*3/uL (0.90-5.00); Lymphocytes % (A) 6.3 %; MCH 25.9 pg (27.0-32.0); MCHC 33.2 g/dL (32.0-37.0); MCV 78.0 fL (80.0-97.0); Monocytes # (A) 1.16 10*3/uL (0.20-1.00); Monocytes % (A) 10.4 %; Neutrophils # (A) 7.94 10*3/uL (1.80-7.70); Neutrophils % (A) 71.2 %; Platelet Count 245 10*3/uL (140-440); RBC 3.86 10*6/uL (4.40-5.60); RDW 15.9 % (11.5-14.5); WBC 11.16 10*3/uL (4.50-10.00)
[2025-04-03] MEDS: FUROSEMIDE 10 MG/ML 2 ML VIAL IV ONE (09:28)
[2025-04-03] MEDS: APIXABAN 2.5 MG TABLET PO SCH (09:29)
[2025-04-03 09:41] LABS: ALT 6 U/L (4-49); AST 21 U/L (17-59); African American GFR (CKD) 39 (>60 ml/min/1.73 sqM); Albumin 2.1 g/dL (3.5-5.0); Alkaline Phosphatase 98 U/L (38-126); Anion Gap 12 mmol/L; Blood Urea Nitrogen 40 mg/dL (9-20); Calcium 7.8 mg/dL (8.4-10.2); Carbon Dioxide 20 mmol/L (22-30); Chloride 102 mmol/L (98-107); Glucose 84 mg/dL (74-99); Non-African American GFR(CKD) 34 (>60 ml/min/1.73 sqM); Potassium 3.2 mmol/L (3.5-5.1); Sodium 134 mmol/L (137-145); Total Protein 4.5 g/dL (6.3-8.2)
[2025-04-03] MEDS ORDERED: SODIUM CHLORIDE 0.9% 1,000 ML IV SCH (10:15)
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
[2025-04-03] MEDS: POTASSIUM CHLORIDE ER 20 MEQ TAB.ER PO STA (12:35)
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
--- NOTE | 2025-04-03 15:38 | P.PN ---
Subjective Progress Note Date: 04/03/25 Consulted for ANGELY. He is feeling better today. He endorses being warm and sweaty this morning. He has some shortness of breath. He denies chest pain and nausea. Potassium 3.2 this morning. Given potassium replacement. Vital signs are stable. On low-dose Levophed. General: Resting in bed. HEENT: NG tube noted. LUNGS: No audible rhonchi or wheezes. HEART: Rate and Rhythm are regular. ABDOMEN: Nontender. EXTREMITITES: No edema. Objective - Vital Signs Vital signs: Vital Signs Temp 97.9 F 04/03/25 04:00 Pulse 92 04/03/25 08:34 Resp 18 04/03/25 04:00 BP 130/76 04/03/25 04:00 Pulse Ox 100 04/03/25 04:00 FiO2 2 04/02/25 11:45 Intake & Output 04/02/25 04/03/25 04/03/25 18:59 06:59 18:59 Intake Total 920.922 180 Output Total 390 500 Balance 530.922 -500 180 Weight 112.5 kg Intake: IV 30 kvo 30 Intake, IV Titration 710.922 Amount Amiodarone 450 mg In 74.724 Dextrose 5% in Water 250 ml @ 0.5 MG/MIN 16.667 mls/hr IV .Q15H [facility] Rx#: [id number] Dexmedetomidine/0.9% NaCl 31.232 (Pmx) 400 mcg In Empty Bag 1 bag @ 0.2 MCG/KG/HR 5.67 mls/hr IV .[id number] [facility] Rx#:[id number] Dextrose 5% in Water 1, 225 000 ml @ 75 mls/hr IV . [id number] [facility] Rx#:[id number] Dextrose 5%-0.9% NaCl 1, 75 000 ml @ 75 mls/hr IV . [id number] [facility] Rx#:[id number] Heparin Sod,Pork in 0.45% 250 NaCl 25,000 unit In 0.45 % NaCl 1 250ml.bag @ 8. 818 UNITS/KG/HR 9.999 mls /hr IV .Q24H [facility] Rx#: [id number] Norepinephrine 8 mg In 54.966 Sodium Chloride 0.9% 250 ml @ 0.05 MCG/KG/MIN 10. 971 mls/hr IV .[id number] [facility] Rx#:[id number] Oral 180 180 Output: Urine 390 500 Other: Voiding Method Indwelling Catheter Indwelling Catheter - Labs CBC & Chem 7: 04/03/25 08:09 04/03/25 16:04 Labs: Abnormal Lab Results - Last 24 Hours (Table) 04/02/25 04/02/25 Range/Units 11:37 15:58 Sodium 147 H (137-145) mmol/L POC Glucose (mg/dL) 157 H (70-110) mg/dL Microbiology - Last 24 Hours (Table) 03/30/25 14:30 Blood Culture - Preliminary Blood 03/30/25 12:15 Blood Culture Gram Stain - Final Blood Blood Culture - Final Klebsiella pneum subsp pneum Molecular ID Assessment and Plan Plan: Assessment: 1. Acute kidney injury secondary to ATN secondary to septic shock. Creatinine 4.5 on admission and is 2.03 today. Baseline creatinine near 0.7 from January 2025. No hydronephrosis noted on ultrasound. 2. Septic shock secondary to Klebsiella UTI and bacteremia. On antibiotics. 3. A-fib with RVR s/p IV heparin and amiodarone drip. Cardiology following. Now on po meds. 4. Hyperkalemia secondary to acute kidney injury, improved. 5. History of traumatic brain injury. 6. Hypernatremia from lack of oral water intake. Resolved. Plan: D/c D5W due to hyponatremia. Repeat sodium level at 16:00 today. Potassium 3.2, given potassium today per potassium replacement protocol. Wean Levophed. Avoid nephrotoxins. Continue to monitor renal function and urine output. Adamaris Garrett MD Internal Medicine PGY1 Nephrology service I have seen and examined the patient with resident and agree with A&P as written. D5W discontinued. S/p Iv lasix x 1 dose this AM. K replaced.
--- NOTE | 2025-04-03 15:42 | P.PN ---
Subjective Progress Note Date: 04/03/25 This is a 64-year-old male patient, presenting to the emergency department from [facility] on the leg due to altered mentation. The patient was found to be hypotensive, tachycardic and septic. The patient has a chronically indwelling Quezada catheter. The urine output was purulent and cloudy. The Quezada catheter was in place. The patient was found to be quite hypotensive in the emergency department and the patient was started on IV fluids and the patient was given 2 L of lactated Ringer and 1 L of normal saline and the patient is currently on norepinephrine running at 0.1 mcg/kg/min. The patient also on lactated Ringer at rate of 125 cc an hour. The patient without IV Zosyn. The patient is curre ntly on 2 L of oxygen by nasal cannula. He does have diminished level of consciousness. Temperature is 100.2. Remains tachycardic. Remains on 2 L of oxygen by nasal cannula. The chest x-ray at the time of admission showed cardiomegaly with mild pulm vascular congestion. No other acute abnormalities were noted. The patient is a poor historian. He is obese with a body mass index of 33.9. He remains on IV Zosyn at this point. Blood work was reviewed. White seconds 21, hemoglobin 12.4 and a platelet count of 335. BUN is 60 with a creatinine of 4.03, improved compared to yesterday and a sodium levels at 138 with a potassium level of 4.9, serum bicarb is 21, LFTs are normal. Initial l actic acid level was elevated at 4.1 dropped down to 1.6. UA is obviously abnormal and the culture still pending for now. The preliminary blood cultures based on molecular ID is indicating gram-negative bacillus. Patient was seen and examined today on 04/01/2025, patient was seen in the ER, he is on 2 L nasal cannula, receiving IV fluid in the form of D5.9 at 75 cc/h he is also on heparin drip, norepinephrine at 0.12 mcg/kg/min he is also receiving amiodarone at 0.5 mg/min and he is empirically on Zosyn. Patient is arousable but obtunded, his blood cultures are positive for Klebsiella pneumonia and I suspect the primary source is his urine. Patient is now DNR CODE STATUS, he was sent here from the [facility]. Patient himself is not a great historian, and does not seem to be doing well. Continues to have leukocytosis with WBC count of 9.79 hemoglobin 12.5 basic metabolic profile is normal BUN is 61 creatinine 3.21 patient had positive Hemoccult stools. Patient has been seen by many consultants. Renal ultrasound showed no evidence of hydronephrosis and no nephrolithiasis. Chest x-ray this morning showed cardiomegaly and mild pulmonary vascular congestion and the basilar atelectasis. Underlying pneumonia is not entirely ruled out but felt to be less likely. Patient was seen today on 04/02/2025, remains in the ICU, patient is comfortable, not in any distress, he is on a very small tiny dose of Precedex, patient has positive blood cultures and positive urine cultures for Klebsiella, sensitive to Zosyn and the patient is actually on Zosyn. Patient is not requiring any pres sors, he is on D5W at 75 cc/h plan to discontinue Precedex this morning, patient has been seen by many consultants, O2 saturation 99% on 3 L, I plan to transfer the patient to 3 S. today, out of the ICU. CODE STATUS remains DNR. WBC count is 14.2 hemoglobin 10.9 sodium is 148 BUN 51 creatinine 2.70, steadily improving compared to creatinine of 4.59 on his initial presentation on 03/30. The patient is seen today April 03, 2025 in follow-up on the selective care unit. He was transferred out of the intensive care unit yesterday. He is currently sitting up in bed. Awake. Maintaining O2 saturations in the 90s on 3 L/min per nasal cannula. Urine culture positive for Proteus mirabilis. Blood culture positive for Klebsiella pneumoniae. White count 11.1. Hemoglobin 10.0. Platelets 245. Sodium 134. Potassium 3.2. Bicarb 20. BUN 40. Creatinine 2.03. He remains on a heparin drip. Continued on DuoNeb inhalations, Symbicort. Remains on ceftriaxone. Objective - Vital Signs Vital signs: Vital Signs Temp 97.9 F 04/03/25 08:15 Pulse 88 04/03/25 12:26 Resp 18 04/03/25 08:15 BP 145/76 04/03/25 08:15 Pulse Ox 99 04/03/25 08:15 FiO2 2 04/02/25 11:45 Intake & Output 04/02/25 04/03/25 04/03/25 18:59 06:59 18:59 Intake Total 920.922 360 Output Total 537 293 1263 Balance 530.968 -500 -9975 Weight 112.5 kg Intake: IV 30 kvo 30 Intake, IV Titration 710.922 Amount Amiodarone 450 mg In 74.724 Dextrose 5% in Water 250 ml @ 0.5 MG/MIN 16.667 mls/hr IV .Q15H [facility] Rx#: [id number] Dexmedetomidine/0.9% NaCl 31.232 (Pmx) 400 mcg In Empty Bag 1 bag @ 0.2 MCG/KG/HR 5.67 mls/hr IV .[id number] [facility] Rx#:[id number] Dextrose 5% in Water 1, 225 000 ml @ 75 mls/hr IV . [id number] [facility] Rx#:[id number] Dextrose 5%-0.9% NaCl 1, 75 000 ml @ 75 mls/hr IV . [id number] [facility] Rx#:[id number] Heparin Sod,Pork in 0.45% 250 NaCl 25,000 unit In 0.45 % NaCl 1 250ml.bag @ 8. 818 UNITS/KG/HR 9.999 mls /hr IV .Q24H [facility] Rx#: [id number] Norepinephrine 8 mg In 54.966 Sodium Chloride 0.9% 250 ml @ 0.05 MCG/KG/MIN 10. 971 mls/hr IV .[id number] [facility] Rx#:[id number] Oral 180 360 Output: Urine 000 418 0640 Other: Voiding Method Indwelling Catheter Indwelling Catheter - Exam GENERAL EXAM: Awake, 64-year-old male, sitting up in bed, on 3 L nasal cannula, comfortable in no apparent distress. HEAD: Normocephalic. EYES: Normal reaction of pupils, equal size. NOSE: Clear with pink turbinates. THROAT: No erythema or exudates. NECK: No masses, no JVD. CHEST: No chest wall deformity. LUNGS: Equal air entry with no crackles, wheeze, rhonchi or dullness. CVS: S1 and S2 normal with no audible murmur, regular rhythm. ABDOMEN: No hepatosplenomegaly, normal bowel sounds, no guarding or rigidity. SPINE: No scoliosis or deformity SKIN: No rashes CENTRAL NERVOUS SYSTEM: Opens his eyes, stuporous, left-sided weakness, tone is normal in all 4 extremities. EXTREMITIES: There is no peripheral edema. No clubbing, no cyanosis. P eripheral pulses are intact. - Labs CBC & Chem 7: 04/03/25 08:09 04/03/25 08:09 Labs: Abnormal Lab Results - Last 24 Hours (Table) 04/02/25 04/03/25 04/03/25 Range/Units 15:58 08:09 08:09 WBC 11.16 H (4.50-10.00) 10*3/uL RBC 3.86 L (4.40-5.60) 10*6/uL Hgb 10.0 L (13.0-17.0) g/dL Hct 30.1 L (39.6-50.0) % MCV 78.0 L (80.0-97.0) fL MCH 25.9 L (27.0-32.0) pg Immature Gran # 0.56 H (0.00-0.04) 10*3/uL Neutrophils # 7.94 H (1.80-7.70) 10*3/uL Lymphocytes # 0.70 L (0.90-5.00) 10*3/uL Monocytes # 1.16 H (0.20-1.00) 10*3/uL Eosinophils # 0.75 H (0.04-0.35) 10*3/uL APTT 38.9 H (22.0-30.0) sec Sodium 147 H (137-145) mmol/L Potassium (3.5-5.1) mmol/L Carbon Dioxide (22-30) mmol/L BUN (9-20) mg/dL Creatinine (0.66-1.25) mg/dL Calcium (8.4-10.2) mg/dL Total Protein (6.3-8.2) g/dL Albumin (3.5-5.0) g/dL 04/03/25 Range/Units 08:09 WBC (4.50-10.00) 10*3/uL RBC (4.40-5.60) 10*6/uL Hgb (13.0-17.0) g/dL Hct (39.6-50.0) % MCV (80.0-97.0) fL MCH (27.0-32.0) pg Immature Gran # (0.00-0.04) 10*3/uL Neutrophils # (1.80-7.70) 10*3/uL Lymphocytes # (0.90-5.00) 10*3/uL Monocytes # (0.20-1.00) 10*3/uL Eosinophils # (0.04-0.35) 10*3/uL APTT (22.0-30.0) sec Sodium 134 L (137-145) mmol/L Potassium 3.2 L (3.5-5.1) mmol/L Carbon Dioxide 20 L (22-30) mmol/L BUN 40 H (9-20) mg/dL Creatinine 2.03 H (0.66-1.25) mg/dL Calcium 7.8 L (8.4-10.2) mg/dL Total Protein 4.5 L (6.3-8.2) g/dL Albumin 2.1 L (3.5-5.0) g/dL Microbiology - Last 24 Hours (Table) 03/30/25 12:30 Urine Culture - Preliminary Urine,Voided Gram Neg Bacilli Proteus mirabilis 03/30/25 14:30 Blood Culture - Preliminary Blood 03/30/25 12:15 Blood Culture Gram Stain - Final Blood Blood Culture - Final Klebsiella pneum subsp pneum Molecular ID Assessment and Plan Assessment: Septic shock most likely source is UTI secondary to Proteus mirabilis Acute urinary tract infection in a patient with chronic indwelling Quezada catheter Gram-negative bacteremia suspect secondary to Klebsiella pneumoniae Acute leukocytosis secondary to above Acute kidney injury secondary to acute tubular necrosis Acute hypoxic respiratory failure on 2 L nasal cannula Benign essential hypertension Dyslipidemia History of 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 Remains on a heparin drip To be transition to Eliquis Continued on DuoNeb inhalations Continued on Symbicort Plan is to return to [facility] at discharge I have personally seen and examined the patient, performed the documentation and the assessment and plan as written. Number of minutes spent on the visit: 10 Dictation was produced using [employer] dictation software. Please excuse any grammatical, word or spelling errors.
--- NOTE | 2025-04-03 16:14 | XR ---
EXAMINATION TYPE: XR chest 1V DATE OF EXAM: 04/03/2025 3:44 PM COMPARISON: 04/01/25 CLINICAL INDICATION: Male, 64 years old with history of cough, TECHNIQUE: XR chest 1V views of the chest are obtained. FINDINGS: Demonstrated are scattered senescent parenchymal change. There is no evidence for focal infiltrate. NG tube has been removed. The heart is stable. Hilar and mediastinal structures are within normal limits. Degenerative changes are seen of the dorsal spine. IMPRESSION: 1. Chronic changes without evidence for acute pulmonary disease. [facility], , 04/03/2025 4:11 PM
[2025-04-04 06:56] LABS: Basophils # (A) 0.05 10*3/uL (0.00-0.10); Basophils % (A) 0.5 %; Eosinophils # (A) 0.40 10*3/uL (0.04-0.35); Eosinophils % (A) 3.9 %; HCT 33.0 % (39.6-50.0); HGB 10.9 g/dL (13.0-17.0); Lymphocytes # (A) 0.54 10*3/uL (0.90-5.00); Lymphocytes % (A) 5.3 %; MCH 26.5 pg (27.0-32.0); MCHC 33.0 g/dL (32.0-37.0); MCV 80.3 fL (80.0-97.0); Monocytes # (A) 1.02 10*3/uL (0.20-1.00); Monocytes % (A) 10.0 %; Neutrophils # (A) 7.63 10*3/uL (1.80-7.70); Neutrophils % (A) 74.8 %; Platelet Count 280 10*3/uL (140-440); RBC 4.11 10*6/uL (4.40-5.60); RDW 16.3 % (11.5-14.5); WBC 10.20 10*3/uL (4.50-10.00)
[2025-04-04 07:12] LABS: ALT <6 U/L (4-49); AST 19 U/L (17-59); African American GFR (CKD) 39 (>60 ml/min/1.73 sqM); Albumin 2.3 g/dL (3.5-5.0); Alkaline Phosphatase 97 U/L (38-126); Anion Gap 8 mmol/L; Blood Urea Nitrogen 37 mg/dL (9-20); Calcium 8.5 mg/dL (8.4-10.2); Carbon Dioxide 26 mmol/L (22-30); Chloride 109 mmol/L (98-107); Glucose 100 mg/dL (74-99); Magnesium 2.1 mg/dL (1.6-2.3); Non-African American GFR(CKD) 34 (>60 ml/min/1.73 sqM); Potassium 3.6 mmol/L (3.5-5.1); Sodium 143 mmol/L (137-145); Total Protein 5.1 g/dL (6.3-8.2)
--- NOTE | 2025-04-04 12:45 | CA ---
Transthoracic Echo Report Name: Baljit Peterson Age: 64 Gender: M : 1960 Exam Date: 04/04/2025 08:48 Exam Location: [place] [facility] Ht (in): 72 Wt (lb): 250 Ordering Physician: Aaron Nam MD ([id number]) Attending/Referring Phys: Mold Stamper Lizzie Hwang RDCS Procedure CPT: Indications: cardioversion x2 Cardiac Hx: Technical Quality: Technically difficult study Contrast 1: Definity Total Dose (mL): 2 Contrast 2: Total Dose (mL): MEASUREMENTS (Male / Female) Normal Values 2D ECHO LV Diastolic Diameter PLAX 4.7 cm 4.2 - 5.9 / 3.9 - 5.3 cm LV Systolic Diameter PLAX 3.8 cm IVS Diastolic Thickness 1.6 cm 0.6 - 1.0 / 0.6 - 0.9 cm LVPW Diastolic Thickness 1.5 cm 0.6 - 1.0 / 0.6 - 0.9 cm LV Relative Wall Thickness 0.7 RV Internal Dim ED PLAX 3.5 cm LA Systolic Diameter LX 3.8 cm 3.0 - 4.0 / 2.7 - 3.8 cm M-MODE Aortic Root Diameter MM 3.5 cm AV Cusp Separation MM 3.0 cm DOPPLER AV Peak Velocity 189.7 cm/s AV Peak Gradient 14.4 mmHg AV Mean Velocity 109.0 cm/s AV Mean Gradient 5.8 mmHg AV Velocity Time Integral 29.2 cm Mitral E Point Velocity 101.7 cm/s Mitral A Point Velocity 109.7 cm/s Mitral E to A Ratio 0.9 MV Deceleration Time 269.0 ms MV E' Velocity 9.1 cm/s Mitral E to MV E' Ratio 11.2 TR Peak Velocity 264.8 cm/s TR Peak Gradient 28.0 mmHg Right Ventricular Systolic Press 38.3 mmHg FINDINGS Left Ventricle Left ventricular ejection fraction is estimated at 55-60 %. Left ventricular cavity size normal. Moderately increased septal wall thickness. No obvious regional wall motion abnormalities. Right Ventricle Right ventricular dilatation. Mild pulmonary hypertension. Right Atrium Normal right atrial size. No right atrial thrombus or mass seen. Left Atrium Normal left atrial size. No left atrial thrombus or mass present. Mitral Valve Structurally normal mitral valve. No mitral stenosis, regurgitation or prolapse. Aortic Valve Trileaflet aortic valve. Aortic valve sclerosis. No aortic valve stenosis or regurgitation. Tricuspid Valve Structurally normal tricuspid valve. Mild tricuspid regurgitation. Pulmonic Valve Structurally normal pulmonic valve. No pulmonic regurgitation. Pericardium No pericardial effusion. Aorta Normal size aortic root and proximal ascending aorta. CONCLUSIONS Normal LV function Mild pulmonary hypertension Previewed by: Dr. Bola Fernandez MD (Electronically Signed) Final Date: 04 April 2025 12:44
--- NOTE | 2025-04-04 12:57 | P.PN ---
Subjective Progress Note Date: 04/04/25 Consulted for ANGELY. He continues to feel better. He also feels slight improvement with SOB. He denies chest pain and nausea. He has increased appetite. He is having adequate ouput. Sodium checked yesterday evening, returned to normal range of 143. Potassium today also in normal range 3.6 after potassium rep lacement. Vital signs are stable. General: Resting in bed. HEENT: NG tube removed. LUNGS: No audible rhonchi or wheezes. HEART: Rate and Rhythm are regular. ABDOMEN: Nontender. EXTREMITITES: No edema. Objective - Vital Signs Vital signs: Vital Signs Temp 98.6 F 04/03/25 20:43 Pulse 80 04/04/25 06:35 Resp 18 04/04/25 03:09 BP 132/76 04/04/25 03:09 Pulse Ox 100 04/04/25 03:09 FiO2 2 04/02/25 11:45 Intake & Output 04/03/25 04/04/25 04/04/25 18:59 06:59 18:59 Intake Total 600 540 180 Output Total 4000 2950 Balance -3400 -2410 180 Weight 114.5 kg Intake: Oral 600 540 180 Output: Urine 4000 2950 Other: Voiding Method Indwelling Catheter Indwelling Catheter # Bowel Movements 1 - Labs CBC & Chem 7: 04/04/25 06:28 04/04/25 13:04 Labs: Abnormal Lab Results - Last 24 Hours (Table) 04/03/25 04/03/25 04/03/25 Range/Units 08:09 08:09 16:04 WBC (4.50-10.00) 10*3/uL RBC (4.40-5.60) 10*6/uL Hgb (13.0-17.0) g/dL Hct (39.6-50.0) % MCH (27.0-32.0) pg Immature Gran # (0.00-0.04) 10*3/uL Lymphocytes # (0.90-5.00) 10*3/uL Monocytes # (0.20-1.00) 10*3/uL Eosinophils # (0.04-0.35) 10*3/uL APTT 38.9 H (22.0-30.0) sec Sodium 134 L 135 L (137-145) mmol/L Potassium 3.2 L (3.5-5.1) mmol/L Chloride (98-107) mmol/L Carbon Dioxide 20 L (22-30) mmol/L BUN 40 H (9-20) mg/dL Creatinine 2.03 H (0.66-1.25) mg/dL Glucose (74-99) mg/dL Calcium 7.8 L (8.4-10.2) mg/dL Total Protein 4.5 L (6.3-8.2) g/dL Albumin 2.1 L (3.5-5.0) g/dL 04/04/25 04/04/25 Range/Units 06:28 06:28 WBC 10.20 H (4.50-10.00) 10*3/uL RBC 4.11 L (4.40-5.60) 10*6/uL Hgb 10.9 L (13.0-17.0) g/dL Hct 33.0 L (39.6-50.0) % MCH 26.5 L (27.0-32.0) pg Immature Gran # 0.56 H (0.00-0.04) 10*3/uL Lymphocytes # 0.54 L (0.90-5.00) 10*3/uL Monocytes # 1.02 H (0.20-1.00) 10*3/uL Eosinophils # 0.40 H (0.04-0.35) 10*3/uL APTT (22.0-30.0) sec Sodium (137-145) mmol/L Potassium (3.5-5.1) mmol/L Chloride 109 H (98-107) mmol/L Carbon Dioxide (22-30) mmol/L BUN 37 H (9-20) mg/dL Creatinine 2.02 H (0.66-1.25) mg/dL Glucose 100 H (74-99) mg/dL Calcium (8.4-10.2) mg/dL Total Protein 5.1 L (6.3-8.2) g/dL Albumin 2.3 L (3.5-5.0) g/dL Microbiology - Last 24 Hours (Table) 03/30/25 12:30 Urine Culture - Preliminary Urine,Voided Gram Neg Bacilli Proteus mirabilis Assessment and Plan Plan: Assessment: 1. Acute kidney injury secondary to ATN secondary to septic shock. Creatinine 4.5 on admission and is 2.02 today. Baseline creatinine near 0.7 from January 2025. No hydronephrosis noted on ultrasound. 2. Septic shock secondary to Klebsiella UTI and bacteremia. On antibiotics. 3. A-fib with RVR s/p IV heparin and amiodarone drip. Cardiology following. Now on po meds. 4. Hyperkalemia secondary to acute kidney injury, improved. 5. History of traumatic brain injury. 6. Hypernatremia from lack of oral water intake. Resolved. Plan: Potassium replacement 40mg today Fluid restriction 2500ml Avoid nephrotoxins Continue to monitor renal function and urine output Check BMP and Mg Adamaris Garrett MD Internal Medicine PGY1 Nephrology service I have seen and examined the patient with resident and agree with A&P as written. Liberalize fluid intake.
[2025-04-04 13:34] LABS: African American GFR (CKD) 41 (>60 ml/min/1.73 sqM); Anion Gap 8 mmol/L; Blood Urea Nitrogen 36 mg/dL (9-20); Calcium 8.5 mg/dL (8.4-10.2); Carbon Dioxide 26 mmol/L (22-30); Chloride 107 mmol/L (98-107); Glucose 117 mg/dL (74-99); Magnesium 2.1 mg/dL (1.6-2.3); Non-African American GFR(CKD) 36 (>60 ml/min/1.73 sqM); Potassium 3.6 mmol/L (3.5-5.1); Sodium 141 mmol/L (137-145)
[2025-04-04 14:53] VITALS: BMI 34.2
--- NOTE | 2025-04-04 16:07 | P.PN ---
Subjective Progress Note Date: 04/04/25 This is a 64-year-old male patient, presenting to the emergency department from [facility] on the leg due to altered mentation. The patient was found to be hypotensive, tachycardic and septic. The patient has a chronically indwelling Quezada catheter. The urine output was purulent and cloudy. The Quezada catheter was in place. The patient was found to be quite hypotensive in the emergency department and the patient was started on IV fluids and the patient was given 2 L of lactated Ringer and 1 L of normal saline and the patient is currently on norepinephrine running at 0.1 mcg/kg/min. The patient also on lactated Ringer at rate of 125 cc an hour. The patient without IV Zosyn. The patient is curre ntly on 2 L of oxygen by nasal cannula. He does have diminished level of consciousness. Temperature is 100.2. Remains tachycardic. Remains on 2 L of oxygen by nasal cannula. The chest x-ray at the time of admission showed cardiomegaly with mild pulm vascular congestion. No other acute abnormalities were noted. The patient is a poor historian. He is obese with a body mass index of 33.9. He remains on IV Zosyn at this point. Blood work was reviewed. White seconds 21, hemoglobin 12.4 and a platelet count of 335. BUN is 60 with a creatinine of 4.03, improved compared to yesterday and a sodium levels at 138 with a potassium level of 4.9, serum bicarb is 21, LFTs are normal. Initial l actic acid level was elevated at 4.1 dropped down to 1.6. UA is obviously abnormal and the culture still pending for now. The preliminary blood cultures based on molecular ID is indicating gram-negative bacillus. Patient was seen and examined today on 04/01/2025, patient was seen in the ER, he is on 2 L nasal cannula, receiving IV fluid in the form of D5.9 at 75 cc/h he is also on heparin drip, norepinephrine at 0.12 mcg/kg/min he is also receiving amiodarone at 0.5 mg/min and he is empirically on Zosyn. Patient is arousable but obtunded, his blood cultures are positive for Klebsiella pneumonia and I suspect the primary source is his urine. Patient is now DNR CODE STATUS, he was sent here from the [facility]. Patient himself is not a great historian, and does not seem to be doing well. Continues to have leukocytosis with WBC count of 9.79 hemoglobin 12.5 basic metabolic profile is normal BUN is 61 creatinine 3.21 patient had positive Hemoccult stools. Patient has been seen by many consultants. Renal ultrasound showed no evidence of hydronephrosis and no nephrolithiasis. Chest x-ray this morning showed cardiomegaly and mild pulmonary vascular congestion and the basilar atelectasis. Underlying pneumonia is not entirely ruled out but felt to be less likely. Patient was seen today on 04/02/2025, remains in the ICU, patient is comfortable, not in any distress, he is on a very small tiny dose of Precedex, patient has positive blood cultures and positive urine cultures for Klebsiella, sensitive to Zosyn and the patient is actually on Zosyn. Patient is not requiring any pres sors, he is on D5W at 75 cc/h plan to discontinue Precedex this morning, patient has been seen by many consultants, O2 saturation 99% on 3 L, I plan to transfer the patient to 3 S. today, out of the ICU. CODE STATUS remains DNR. WBC count is 14.2 hemoglobin 10.9 sodium is 148 BUN 51 creatinine 2.70, steadily improving compared to creatinine of 4.59 on his initial presentation on 03/30. The patient is seen today April 03, 2025 in follow-up on the selective care unit. He was transferred out of the intensive care unit yesterday. He is currently sitting up in bed. Awake. Maintaining O2 saturations in the 90s on 3 L/min per nasal cannula. Urine culture positive for Proteus mirabilis. Blood culture positive for Klebsiella pneumoniae. White count 11.1. Hemoglobin 10.0. Platelets 245. Sodium 134. Potassium 3.2. Bicarb 20. BUN 40. Creatinine 2.03. He remains on a heparin drip. Continued on DuoNeb inhalations, Symbicort. Remains on ceftriaxone. The patient is seen today April 04, 2025 in follow-up on the selective care unit. He is currently sitting up in bed. Awake and alert in no acute distress. Maintaining O2 saturations in the 90s on room air oxygen. Chest x-ray shows chronic changes without acute pulmonary disease. Echocardiogram reveals preserved left ventricular systolic function with an ejection fraction of 55 to 60%. No valvular heart disease. Initial blood culture revealed Klebsiella pneumoniae. Urine culture was positive for Klebsiella oxytoca and Proteus mirabilis. Follow-up blood culture revealed no growth. White count 10.2. Hemoglobin 10.9. Platelets 280. Sodium 141. Potassium 3.6. Bicarb 26. BUN 36. Creatinine 1.92. Glucose 117. He remains on DuoNeb inhalations, Symbicort. Remains on ceftriaxone. Anticoagulated with Eliquis. Objective - Vital Signs Vital signs: Vital Signs Temp 97.9 F 04/04/25 08:20 Pulse 96 04/04/25 13:17 Resp 18 04/04/25 08:20 BP 138/71 04/04/25 08:20 Pulse Ox 100 04/04/25 08:20 FiO2 2 04/02/25 11:45 Intake & Output 04/03/25 04/04/25 04/04/25 18:59 06:59 18:59 Intake Total 600 540 360 Output Total 4000 2950 775 Balance -3400 -2410 -415 Weight 114.5 kg 114.5 kg Intake: Oral 600 540 360 Output: Urine 4000 2950 775 Other: Voiding Method Indwelling Catheter Indwelling Catheter Indwelling Catheter # Bowel Movements 1 - Exam GENERAL EXAM: Awake, 64-year-old male, resting in bed, on room air oxygen, comfortable in no apparent distress. HEAD: Normocephalic. EYES: Normal reaction of pupils, equal size. NOSE: Clear with pink turbinates. THROAT: No erythema or exudates. NECK: No masses, no JVD. CHEST: No chest wall deformity. LUNGS: Equal air entry with no crackles, wheeze, rhonchi or dullness. CVS: S1 and S2 normal with no audible murmur, regular rhythm. ABDOMEN: No hepatosplenomegaly, normal bowel sounds, no guarding or rigidity. SPINE: No scoliosis or deformity SKIN: No rashes CENTRAL NERVOUS SYSTEM: Opens his eyes, stuporous, left-sided weakness, tone is normal in all 4 extremities. EXTREMITIES: There is no peripheral edema. No clubbing, no cyanosis. Peripheral pulses are intact. - Labs CBC & Chem 7: 04/04/25 06:28 04/04/25 13:04 Labs: Abnormal Lab Results - Last 24 Hours (Table) 04/03/25 04/04/25 04/04/25 Range/Units 16:04 06:28 06:28 WBC 10.20 H (4.50-10.00) 10*3/uL RBC 4.11 L (4.40-5.60) 10*6/uL Hgb 10.9 L (13.0-17.0) g/dL Hct 33.0 L (39.6-50.0) % MCH 26.5 L (27.0-32.0) pg Immature Gran # 0.56 H (0.00-0.04) 10*3/uL Lymphocytes # 0.54 L (0.90-5.00) 10*3/uL Monocytes # 1.02 H (0.20-1.00) 10*3/uL Eosinophils # 0.40 H (0.04-0.35) 10*3/uL Sodium 135 L (137-145) mmol/L Chloride 109 H (98-107) mmol/L BUN 37 H (9-20) mg/dL Creatinine 2.02 H (0.66-1.25) mg/dL Glucose 100 H (74-99) mg/dL Total Protein 5.1 L (6.3-8.2) g/dL Albumin 2.3 L (3.5-5.0) g/dL 04/04/25 Range/Units 13:04 WBC (4.50-10.00) 10*3/uL RBC (4.40-5.60) 10*6/uL Hgb (13.0-17.0) g/dL Hct (39.6-50.0) % MCH (27.0-32.0) pg Immature Gran # (0.00-0.04) 10*3/uL Lymphocytes # (0.90-5.00) 10*3/uL Monocytes # (0.20-1.00) 10*3/uL Eosinophils # (0.04-0.35) 10*3/uL Sodium (137-145) mmol/L Chloride (98-107) mmol/L BUN 36 H (9-20) mg/dL Creatinine 1.92 H (0.66-1.25) mg/dL Glucose 117 H (74-99) mg/dL Total Protein (6.3-8.2) g/dL Albumin (3.5-5.0) g/dL Microbiology - Last 24 Hours (Table) 03/30/25 12:30 Urine Culture - Final Urine,Voided Klebsiella oxytoca Proteus mirabilis Assessment and Plan Assessment: Septic shock most likely source is UTI secondary to Proteus mirabilis Acute urinary tract infection in a patient with chronic indwelling Quezada catheter Gram-negative bacteremia secondary to Klebsiella pneumoniae Acute leukocytosis secondary to above Acute kidney injury secondary to acute tubular necrosis Acute hypoxic respiratory failure on 2 L nasal cannula Benign essential hypertension Dyslipidemia History of CVA with chronic left-sided weakness and deficit History of traumatic brain injury and epilepsy and history of bladder dysfunction History of migraine cephalgia History of fatty liver History of gout Chronic venous insufficiency Plan: The patient was seen and evaluated Chest x-ray, labs and medications reviewed Echocardiogram reviewed Microbiology reviewed Currently on ceftriaxone. Heparin drip discontinued Transitioned to Eliquis Continued on DuoNeb inhalations Continued on Symbicort Cleared for discharge from the pulmonary standpoint Plan is to return to [facility] at discharge I have personally seen and examined the patient, performed the documentation and the assessment and plan as written. Number of minutes spent on the visit: 10 Dictation was produced using [employer] dictation software. Please excuse any grammatical, word or spelling errors.
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
[2025-04-04] MEDS: POTASSIUM CHLORIDE ER 20 MEQ TAB.ER PO STA ×2 (17:20)
--- NOTE | 2025-04-04 22:29 | P.PN ---
Subjective Progress Note Date: 04/04/25 Principal diagnosis: Reason for follow-up is sepsis UTI and bacteremia Patient is a 64-year-old male with a past medical history significant for Heart Failure, CVA/TIA, Diabetes Mellitus, GERD/Reflux, Hyperlipidemia, Hypertension, Liver Disease, Osteoarthritis (OA), Prostate Disorder, Thyroid Disorder, Vascular Disorder also with the urinary retention requiring chronic indwelling Quezada catheter and senior living resident patient has been sent to the hospital for evaluation of altered mental status, patient be diagnosed with sepsis secondary to catheter associated UTI prompting this consultation. On today's evaluation that is 04/04/2025,the patient remains to be afebrile, patient is on room air not requiring supplemental oxygen and denies any shortness of breath no chest pain or cough.Patient denies having any nausea or vomiting, no abdominal pain and no diarrhea has been reported. Patient white count is down to 10.20, creatinine is 1.92 blood culture repeat has been negative Objective - Vital Signs Vital signs: Vital Signs Temp 97.9 F 04/04/25 08:20 Pulse 96 04/04/25 13:17 Resp 18 04/04/25 08:20 BP 138/71 04/04/25 08:20 Pulse Ox 100 04/04/25 08:20 FiO2 2 04/02/25 11:45 Intake & Output 04/03/25 04/04/25 04/04/25 18:59 06:59 18:59 Intake Total 600 540 360 Output Total 4000 2950 250 Balance -3400 -2410 110 Weight 114.5 kg Intake: Oral 600 540 360 Output: Urine 4000 2950 250 Other: Voiding Method Indwelling Catheter Indwelling Catheter Indwelling Catheter # Bowel Movements 1 - Exam GENERAL DESCRIPTION: An elderly male lying in bed in no distress RESPIRATORY SYSTEM: Unlabored breathing , decreased breath sounds at bases HEART: S1 S2 regular rate and rhythm , ABDOMEN: Soft , no tenderness EXTREMITIES: No edema feet - Labs CBC & Chem 7: 04/04/25 06:28 04/04/25 13:04 Labs: Abnormal Lab Results - Last 24 Hours (Table) 04/03/25 04/04/25 04/04/25 Range/Units 16:04 06:28 06:28 WBC 10.20 H (4.50-10.00) 10*3/uL RBC 4.11 L (4.40-5.60) 10*6/uL Hgb 10.9 L (13.0-17.0) g/dL Hct 33.0 L (39.6-50.0) % MCH 26.5 L (27.0-32.0) pg Immature Gran # 0.56 H (0.00-0.04) 10*3/uL Lymphocytes # 0.54 L (0.90-5.00) 10*3/uL Monocytes # 1.02 H (0.20-1.00) 10*3/uL Eosinophils # 0.40 H (0.04-0.35) 10*3/uL Sodium 135 L (137-145) mmol/L Chloride 109 H (98-107) mmol/L BUN 37 H (9-20) mg/dL Creatinine 2.02 H (0.66-1.25) mg/dL Glucose 100 H (74-99) mg/dL Total Protein 5.1 L (6.3-8.2) g/dL Albumin 2.3 L (3.5-5.0) g/dL Microbiology - Last 24 Hours (Table) 03/30/25 12:30 Urine Culture - Preliminary Urine,Voided Gram Neg Bacilli Proteus mirabilis Assessment and Plan (1) Catheter-associated urinary tract infection Current Visit: Yes Status: Acute Code(s): T83.511A - I/I REACT D/T INDWELLING URETHRAL CATHETER, INIT; N39.0 - URINARY TRACT INFECTION, SITE NOT SPECIFIED SNOMED Code(s): 488675707 (2) Sepsis Current Visit: Yes Status: Acute Code(s): A41.9 - SEPSIS, UNSPECIFIED ORGANISM SNOMED Code(s): 58549930 (3) Bacteremia Current Visit: Yes Status: Acute Code(s): R78.81 - BACTEREMIA SNOMED Code(s): 4065384 Plan: 1patient presented to hospital with sepsis in this patient who did have fever tachycardia hypotension elevated white count source likely urinary in this patient did have significantly cloudy urine with a catheter associated UTI and senior living resident will need to cover for resistant gram-negative 2-blood culture growing gram-negative bacilli urine culture currently growing gram-negative as well 3-patient did have resolution of the fever repeat blood pressure have been negative ultrasound was reported unremarkable no hydronephrosis 4patient currently be treated with Rocephin 2 g daily continue transition to or al Ceftin on discharge Dictation was produced using [employer] dictation software. please excuse any gra mmatical, word or spelling errors.
--- NOTE | 2025-04-04 22:29 | P.PN ---
Subjective Progress Note Date: 04/03/25 Principal diagnosis: Reason for follow-up is sepsis UTI and bacteremia Patient is a 64-year-old male with a past medical history significant for Heart Failure, CVA/TIA, Diabetes Mellitus, GERD/Reflux, Hyperlipidemia, Hypertension, Liver Disease, Osteoarthritis (OA), Prostate Disorder, Thyroid Disorder, Vascular Disorder also with the urinary retention requiring chronic indwelling Quezada catheter and skilled nursing resident patient has been sent to the hospital for evaluation of altered mental status, patient be diagnosed with sepsis secondary to catheter associated UTI prompting this consultation. On today's evaluation that is 04/03/2025,the patient did have return of his fever the patient is afebrile this morning patient is currently breathing comfortably on the 2 L current oxygen he is more awake alert denies any chest pain or cough no abdominal pain or diarrhea. The patient was presented on 0.16, creatinine 2.03 Objective - Vital Signs Vital signs: Vital Signs Temp 97.9 F 04/03/25 08:15 Pulse 88 04/03/25 12:26 Resp 18 04/03/25 08:15 BP 145/76 04/03/25 08:15 Pulse Ox 99 04/03/25 08:15 FiO2 2 04/02/25 11:45 Intake & Output 04/02/25 04/03/25 04/03/25 18:59 06:59 18:59 Intake Total 920.922 180 Output Total 962 828 6974 Balance 530.762 500 -9146 Weight 112.5 kg Intake: IV 30 kvo 30 Intake, IV Titration 710.922 Amount Amiodarone 450 mg In 74.724 Dextrose 5% in Water 250 ml @ 0.5 MG/MIN 16.667 mls/hr IV .Q15H SAURAB[facility] Rx#: [id number] Dexmedetomidine/0.9% NaCl 31.232 (Pmx) 400 mcg In Empty Bag 1 bag @ 0.2 MCG/KG/HR 5.67 mls/hr IV .[id number] [facility] Rx#:[id number] Dextrose 5% in Water 1, 225 000 ml @ 75 mls/hr IV . [id number] [facility] Rx#:[id number] Dextrose 5%-0.9% NaCl 1, 75 000 ml @ 75 mls/hr IV . [id number] [facility] Rx#:[id number] Heparin Sod,Pork in 0.45% 250 NaCl 25,000 unit In 0.45 % NaCl 1 250ml.bag @ 8. 818 UNITS/KG/HR 9.999 mls /hr IV .Q24H [facility] Rx#: [id number] Norepinephrine 8 mg In 54.966 Sodium Chloride 0.9% 250 ml @ 0.05 MCG/KG/MIN 10. 971 mls/hr IV .[id number] SAURAB[facility] Rx#:[id number] Oral 180 180 Output: Urine 866 791 4343 Other: Voiding Method Indwelling Catheter Indwelling Catheter - Exam GENERAL DESCRIPTION: An elderly male lying in bed in no distress RESPIRATORY SYSTEM: Unlabored breathing , decreased breath sounds at bases HEART: S1 S2 regular rate and rhythm , ABDOMEN: Soft , no tenderness EXTREMITIES: No edema feet - Labs CBC & Chem 7: 04/04/25 06:28 04/04/25 13:04 Labs: Abnormal Lab Results - Last 24 Hours (Table) 04/02/25 04/03/25 04/03/25 Range/Units 15:58 08:09 08:09 WBC 11.16 H (4.50-10.00) 10*3/uL RBC 3.86 L (4.40-5.60) 10*6/uL Hgb 10.0 L (13.0-17.0) g/dL Hct 30.1 L (39.6-50.0) % MCV 78.0 L (80.0-97.0) fL MCH 25.9 L (27.0-32.0) pg Immature Gran # 0.56 H (0.00-0.04) 10*3/uL Neutrophils # 7.94 H (1.80-7.70) 10*3/uL Lymphocytes # 0.70 L (0.90-5.00) 10*3/uL Monocytes # 1.16 H (0.20-1.00) 10*3/uL Eosinophils # 0.75 H (0.04-0.35) 10*3/uL APTT 38.9 H (22.0-30.0) sec Sodium 147 H (137-145) mmol/L Potassium (3.5-5.1) mmol/L Carbon Dioxide (22-30) mmol/L BUN (9-20) mg/dL Creatinine (0.66-1.25) mg/dL Calcium (8.4-10.2) mg/dL Total Protein (6.3-8.2) g/dL Albumin (3.5-5.0) g/dL 04/03/25 Range/Units 08:09 WBC (4.50-10.00) 10*3/uL RBC (4.40-5.60) 10*6/uL Hgb (13.0-17.0) g/dL Hct (39.6-50.0) % MCV (80.0-97.0) fL MCH (27.0-32.0) pg Immature Gran # (0.00-0.04) 10*3/uL Neutrophils # (1.80-7.70) 10*3/uL Lymphocytes # (0.90-5.00) 10*3/uL Monocytes # (0.20-1.00) 10*3/uL Eosinophils # (0.04-0.35) 10*3/uL APTT (22.0-30.0) sec Sodium 134 L (137-145) mmol/L Potassium 3.2 L (3.5-5.1) mmol/L Carbon Dioxide 20 L (22-30) mmol/L BUN 40 H (9-20) mg/dL Creatinine 2.03 H (0.66-1.25) mg/dL Calcium 7.8 L (8.4-10.2) mg/dL Total Protein 4.5 L (6.3-8.2) g/dL Albumin 2.1 L (3.5-5.0) g/dL Microbiology - Last 24 Hours (Table) 03/30/25 12:30 Urine Culture - Preliminary Urine,Voided Gram Neg Bacilli Proteus mirabilis 03/30/25 14:30 Blood Culture - Preliminary Blood 03/30/25 12:15 Blood Culture Gram Stain - Final Blood Blood Culture - Final Klebsiella pneum subsp pneum Molecular ID Assessment and Plan (1) Catheter-associated urinary tract infection Current Visit: Yes Status: Acute Code(s): T83.511A - I/I REACT D/T INDWELLING URETHRAL CATHETER, INIT; N39.0 - URINARY TRACT INFECTION, SITE NOT SPECIFIED SNOMED Code(s): 308906874 (2) Sepsis Current Visit: Yes Status: Acute Code(s): A41.9 - SEPSIS, UNSPECIFIED ORGANISM SNOMED Code(s): 16537854 (3) Bacteremia Current Visit: Yes Status: Acute Code(s): R78.81 - BACTEREMIA SNOMED Code(s): 9268575 Plan: 1patient presented to hospital with sepsis in this patient who did have fever tachycardia hypotension elevated white count source likely urinary in this patient did have significantly cloudy urine with a catheter associated UTI and skilled nursing resident will need to cover for resistant gram-negative 2-blood culture growing Klebsiella urine culture Klebsiella and Proteus 3-patient did have resolution of the fever repeat blood cultures has been negative ultrasound was reported unremarkable no hydronephrosis 4patient antibiotic has been switched over to Rocephin 2 g daily on the basis of sensitivity and discontinue Zosyn Dictation was produced using [employer] dictation software. please excuse any grammatical, word or spelling errors.
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
[2025-04-05 11:50] LABS: HCT 32.6 % (39.6-50.0); HGB 10.8 g/dL (13.0-17.0); MCH 26.7 pg (27.0-32.0); MCHC 33.1 g/dL (32.0-37.0); MCV 80.5 fL (80.0-97.0); Platelet Count 276 10*3/uL (140-440); RBC 4.05 10*6/uL (4.40-5.60); RDW 16.0 % (11.5-14.5); WBC 9.76 10*3/uL (4.50-10.00)
[2025-04-05 11:57] LABS: African American GFR (CKD) 53 (>60 ml/min/1.73 sqM); Anion Gap 6 mmol/L; Blood Urea Nitrogen 29 mg/dL (9-20); Calcium 8.5 mg/dL (8.4-10.2); Carbon Dioxide 27 mmol/L (22-30); Chloride 109 mmol/L (98-107); Glucose 128 mg/dL (74-99); Non-African American GFR(CKD) 46 (>60 ml/min/1.73 sqM); Potassium 3.9 mmol/L (3.5-5.1); Sodium 142 mmol/L (137-145)
[2025-04-05 12:20] LABS: Eosinophils # (M) 0.20 k/uL (0-0.7); Lymphocytes # (M) 0.59 k/uL (1.0-4.8); Monocytes # (M) 0.68 k/uL (0-1.0); Neutrophils # (M) 8.30 k/uL (1.3-7.7); Neutrophils % (M) 85 %; Total Cells Counted 100
[2025-04-05 12:21] LABS: Anisocytosis (M) Present; Stomatocytes Present
--- NOTE | 2025-04-05 14:45 | P.PN ---
Subjective Progress Note Date: 04/05/25 Principal diagnosis: Reason for follow-up is sepsis UTI and bacteremia Patient is a 64-year-old male with a past medical history significant for Heart Failure, CVA/TIA, Diabetes Mellitus, GERD/Reflux, Hyperlipidemia, Hypertension, Liver Disease, Osteoarthritis (OA), Prostate Disorder, Thyroid Disorder, Vascular Disorder also with the urinary retention requiring chronic indwelling Quezada catheter and snf resident patient has been sent to the hospital for evaluation of altered mental status, patient be diagnosed with sepsis secondary to catheter associated UTI prompting this consultation. On today's evaluation that is 04/05/2025, the patient continues to be afebrile, the patient is on room air and breathing comfortably, the Pt denies having any chest pain did have occasional dry cough, the patient denies having any abdominal pain no vomiting or any diarrhea has been reported by the nursing staff. Patient white count normal at 9.76, creatinine is 1.56 Objective - Vital Signs Vital signs: Vital Signs Temp 98.2 F 04/05/25 08:04 Pulse 89 04/05/25 12:11 Resp 18 04/05/25 12:11 BP 157/78 04/05/25 12:11 Pulse Ox 97 04/05/25 12:11 FiO2 2 04/02/25 11:45 Intake & Output 04/04/25 04/05/25 04/05/25 18:59 06:59 18:59 Intake Total 360 540 148 Output Total 1375 1300 700 Balance -1015 -760 -552 Weight 114.5 kg 114.5 kg Intake: IV 30 Invasive Line 1 10 Invasive Line 3 10 Invasive Line 4 10 Oral 360 540 118 Output: Urine 1375 1300 700 Other: Voiding Method Indwelling Catheter Indwelling Catheter Indwelling Catheter # Bowel Movements 1 1 - Exam GENERAL DESCRIPTION: An elderly male lying in bed in no distress RESPIRATORY SYSTEM: Unlabored breathing , decreased breath sounds at bases HEART: S1 S2 regular rate and rhythm , ABDOMEN: Soft , no tenderness EXTREMITIES: No edema feet - Labs CBC & Chem 7: 04/05/25 11:20 04/05/25 11:20 Labs: Abnormal Lab Results - Last 24 Hours (Table) 04/04/25 04/05/25 04/05/25 Range/Units 13:04 11:20 11:20 RBC 4.05 L (4.40-5.60) 10*6/uL Hgb 10.8 L (13.0-17.0) g/dL Hct 32.6 L (39.6-50.0) % MCH 26.7 L (27.0-32.0) pg Immature Gran # 0.75 H (0.00-0.04) 10*3/uL Neutrophils # (Manual) 8.30 H (1.3-7.7) k/uL Lymphocytes # (Manual) 0.59 L (1.0-4.8) k/uL Chloride 109 H (98-107) mmol/L BUN 36 H 29 H (9-20) mg/dL Creatinine 1.92 H 1.56 H (0.66-1.25) mg/dL Glucose 117 H 128 H (74-99) mg/dL Microbiology - Last 24 Hours (Table) 03/30/25 14:30 Blood Culture - Final Blood 03/30/25 12:30 Urine Culture - Final Urine,Voided Klebsiella oxytoca Proteus mirabilis Assessment and Plan (1) Catheter-associated urinary tract infection Current Visit: Yes Status: Acute Code(s): T83.511A - I/I REACT D/T INDWELLIN G URETHRAL CATHETER, INIT; N39.0 - URINARY TRACT INFECTION, SITE NOT SPECIFIED SNOMED Code(s): 089682922 (2) Sepsis Current Visit: Yes Status: Acute Code(s): A41.9 - SEPSIS, UNSPECIFIED ORGANISM SNOMED Code(s): 56644810 (3) Bacteremia Current Visit: Yes Status: Acute Code(s): R78.81 - BACTEREMIA SNOMED Code(s): 4076207 Plan: 1patient presented to hospital with sepsis in this patient who did have fever tachycardia hypotension elevated white count source likely urinary in this patient did have significantly cloudy urine with a catheter associated UTI and snf resident will need to cover for resistant gram-negative 2-blood culture grew Klebsiella urine culture currently growing Klebsiella and Proteus 3-patient did have resolution of the fever repeat blood pressure have been neg ative ultrasound was reported unremarkable no hydronephrosis 4patient white count normalized, patient is currently be treated with Rocephin 2 g daily continue transition to oral Ceftin on discharge Dictation was produced using [employer]. please excuse any grammatical, word or spelling errors.
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
[2025-04-05] MEDS: APIXABAN 5 MG TAB PO SCH (19:54)
[2025-04-06 05:58] LABS: Glucose,Whole Blood 90 mg/dL (70-110)
[2025-04-06 07:32] LABS: HCT 32.3 % (39.6-50.0); HGB 10.6 g/dL (13.0-17.0); MCH 26.6 pg (27.0-32.0); MCHC 32.8 g/dL (32.0-37.0); MCV 81.0 fL (80.0-97.0); Platelet Count 293 10*3/uL (140-440); RBC 3.99 10*6/uL (4.40-5.60); RDW 16.1 % (11.5-14.5); WBC 11.40 10*3/uL (4.50-10.00)
[2025-04-06 07:52] LABS: ALT 11 U/L (4-49); AST 45 U/L (17-59); African American GFR (CKD) 65 (>60 ml/min/1.73 sqM); Albumin 2.4 g/dL (3.5-5.0); Alkaline Phosphatase 99 U/L (38-126); Anion Gap 7 mmol/L; Blood Urea Nitrogen 25 mg/dL (9-20); Calcium 8.3 mg/dL (8.4-10.2); Carbon Dioxide 26 mmol/L (22-30); Chloride 110 mmol/L (98-107); Glucose 93 mg/dL (74-99); Magnesium 2.1 mg/dL (1.6-2.3); Non-African American GFR(CKD) 56 (>60 ml/min/1.73 sqM); Potassium 3.9 mmol/L (3.5-5.1); Sodium 143 mmol/L (137-145); Total Protein 5.1 g/dL (6.3-8.2)
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
[2025-04-06 10:16] VITALS: TEMP 97.4
[2025-04-06 10:54] LABS: Eosinophils # (M) 0.11 k/uL (0-0.7); Lymphocytes # (M) 2.05 k/uL (1.0-4.8); Metamyelocytes # (M) 0.11 k/uL (0); Monocytes # (M) 0.68 k/uL (0-1.0); Myelocytes # (M) 0.11 k/uL (0); Neutrophils # (M) 8.32 k/uL (1.3-7.7); Neutrophils % (M) 73 %; Total Cells Counted 100
[2025-04-06 10:55] LABS: Stomatocytes Present
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
[2025-04-06] MEDS: NYSTATIN 100,000 UNIT/GM POWD 15 GM TOPICAL PRN (11:59)
[2025-04-06 12:04] VITALS: BP 130/71; PULSE 81; RESP 16
--- NOTE | 2025-04-06 12:22 | P.PN ---
Subjective Progress Note Date: 04/06/25 This is a 64-year-old male patient, presenting to the emergency department from [facility] on the leg due to altered mentation. The patient was found to be hypotensive, tachycardic and septic. The patient has a chronically indwelling Quezada catheter. The urine output was purulent and cloudy. The Quezada catheter was in place. The patient was found to be quite hypotensive in the emergency department and the patient was started on IV fluids and the patient was given 2 L of lactated Ringer and 1 L of normal saline and the patient is currently on norepinephrine running at 0.1 mcg/kg/min. The patient also on lactated Ringer at rate of 125 cc an hour. The patient without IV Zosyn. The patient is curre ntly on 2 L of oxygen by nasal cannula. He does have diminished level of consciousness. Temperature is 100.2. Remains tachycardic. Remains on 2 L of oxygen by nasal cannula. The chest x-ray at the time of admission showed cardiomegaly with mild pulm vascular congestion. No other acute abnormalities were noted. The patient is a poor historian. He is obese with a body mass index of 33.9. He remains on IV Zosyn at this point. Blood work was reviewed. White seconds 21, hemoglobin 12.4 and a platelet count of 335. BUN is 60 with a creatinine of 4.03, improved compared to yesterday and a sodium levels at 138 with a potassium level of 4.9, serum bicarb is 21, LFTs are normal. Initial l actic acid level was elevated at 4.1 dropped down to 1.6. UA is obviously abnormal and the culture still pending for now. The preliminary blood cultures based on molecular ID is indicating gram-negative bacillus. Patient was seen and examined today on 04/01/2025, patient was seen in the ER, he is on 2 L nasal cannula, receiving IV fluid in the form of D5.9 at 75 cc/h he is also on heparin drip, norepinephrine at 0.12 mcg/kg/min he is also receiving amiodarone at 0.5 mg/min and he is empirically on Zosyn. Patient is arousable but obtunded, his blood cultures are positive for Klebsiella pneumonia and I suspect the primary source is his urine. Patient is now DNR CODE STATUS, he was sent here from the [facility]. Patient himself is not a great historian, and does not seem to be doing well. Continues to have leukocytosis with WBC count of 9.79 hemoglobin 12.5 basic metabolic profile is normal BUN is 61 creatinine 3.21 patient had positive Hemoccult stools. Patient has been seen by many consultants. Renal ultrasound showed no evidence of hydronephrosis and no nephrolithiasis. Chest x-ray this morning showed cardiomegaly and mild pulmonary vascular congestion and the basilar atelectasis. Underlying pneumonia is not entirely ruled out but felt to be less likely. Patient was seen today on 04/02/2025, remains in the ICU, patient is comfortable, not in any distress, he is on a very small tiny dose of Precedex, patient has positive blood cultures and positive urine cultures for Klebsiella, sensitive to Zosyn and the patient is actually on Zosyn. Patient is not requiring any pres sors, he is on D5W at 75 cc/h plan to discontinue Precedex this morning, patient has been seen by many consultants, O2 saturation 99% on 3 L, I plan to transfer the patient to 3 S. today, out of the ICU. CODE STATUS remains DNR. WBC count is 14.2 hemoglobin 10.9 sodium is 148 BUN 51 creatinine 2.70, steadily improving compared to creatinine of 4.59 on his initial presentation on 03/30. The patient is seen today April 03, 2025 in follow-up on the selective care unit. He was transferred out of the intensive care unit yesterday. He is currently sitting up in bed. Awake. Maintaining O2 saturations in the 90s on 3 L/min per nasal cannula. Urine culture positive for Proteus mirabilis. Blood culture positive for Klebsiella pneumoniae. White count 11.1. Hemoglobin 10.0. Platelets 245. Sodium 134. Potassium 3.2. Bicarb 20. BUN 40. Creatinine 2.03. He remains on a heparin drip. Continued on DuoNeb inhalations, Symbicort. Remains on ceftriaxone. The patient is seen today April 04, 2025 in follow-up on the selective care unit. He is currently sitting up in bed. Awake and alert in no acute distress. Maintaining O2 saturations in the 90s on room air oxygen. Chest x-ray shows chronic changes without acute pulmonary disease. Echocardiogram reveals preserved left ventricular systolic function with an ejection fraction of 55 to 60%. No valvular heart disease. Initial blood culture revealed Klebsiella pneumoniae. Urine culture was positive for Klebsiella oxytoca and Proteus mirabilis. Follow-up blood culture revealed no growth. White count 10.2. Hemoglobin 10.9. Platelets 280. Sodium 141. Potassium 3.6. Bicarb 26. BUN 36. Creatinine 1.92. Glucose 117. He remains on DuoNeb inhalations, Symbicort. Remains on ceftriaxone. Anticoagulated with Eliquis. The patient is seen today April 05, 2025 in follow-up on the selective care unit. He is awake and alert in no acute distress. Currently sitting up in bed. Maintaining good O2 saturations in the 90s on room air oxygen. He denies any worsening shortness of breath, cough or congestion. He is continued on DuoNeb inhalations, Symbicort. He is anticoagulated with Eliquis. Remains on ceftriaxone. Follow-up blood culture revealed no growth. White count 9.7. Hemoglobin 10.8. Platelets 276. Sodium 142. Potassium 3.9. Bicarb 27. BUN 29. Creatinine 1.56. Glucose 128. The patient is seen today April 06, 2025 in follow-up on the selective care unit. He is awake and alert in no acute distress. Sitting up in bed. Denies any worsening shortness of breath, cough or congestion. He continues to maintain good O2 saturations in the 90s on room air. He remains on DuoNeb inhalations, Symbicort. Continued on ceftriaxone. Anticoagulated with Eliquis. White count 11.4. Hemoglobin 10.6. Platelets 293. Sodium 143. Potassium 3.9. Bicarb 26. BUN 25. Creatinine 1.33. Glucose 93. Objective - Vital Signs Vital signs: Vital Signs Temp 97.4 F L 04/06/25 07:48 Pulse 81 04/06/25 12:00 Resp 16 04/06/25 12:00 BP 130/71 04/06/25 12:00 Pulse Ox 97 04/06/25 12:00 FiO2 2 04/02/25 11:45 Intake & Output 04/05/25 04/06/25 04/06/25 18:59 06:59 18:59 Intake Total 148 550 10 Output Total 700 Balance -552 550 10 Weight 114.5 kg Intake: IV 30 10 10 Invasive Line 3 10 Invasive Line 4 20 10 10 Oral 118 540 0 Output: Urine 700 Other: Voiding Method Indwelling Catheter Indwelling Catheter Indwelling Catheter # Bowel Movements 1 2 - Exam GENERAL EXAM: Awake, pleasant 64-year-old male, on room air oxygen, in no apparent distress. HEAD: Normocephalic. EYES: Normal reaction of pupils, equal size. NOSE: Clear with pink turbinates. THROAT: No erythema or exudates. NECK: No masses, no JVD. CHEST: No chest wall deformity. LUNGS: Equal air entry with no crackles, wheeze, rhonchi or dullness. CVS: S1 and S2 normal with no audible murmur, regular rhythm. ABDOMEN: No hepatosplenomegaly, normal bowel sounds, no guarding or rigidity. SPINE: No scoliosis or deformity SKIN: No rashes CENTRAL NERVOUS SYSTEM: Awake, alert, left-sided weakness, tone is normal in all 4 extremities. EXTREMITIES: There is no peripheral edema. No clubbing, no cyanosis. Peripheral pulses are intact. - Labs CBC & Chem 7: 04/06/25 06:12 04/06/25 06:12 Labs: Abnormal Lab Results - Last 24 Hours (Table) 04/05/25 04/06/25 04/06/25 Range/Units 11:20 06:12 06:12 WBC 11.40 H (4.50-10.00) 10*3/uL RBC 3.99 L (4.40-5.60) 10*6/uL Hgb 10.6 L (13.0-17.0) g/dL Hct 32.3 L (39.6-50.0) % MCH 26.6 L (27.0-32.0) pg Immature Gran # 0.97 H (0.00-0.04) 10*3/uL Neutrophils # (Manual) 8.30 H 8.32 H (1.3-7.7) k/uL Lymphocytes # (Manual) 0.59 L (1.0-4.8) k/uL Metamyelocytes # (Man) 0.11 H (0) k/uL Myelocytes # (Manual) 0.11 H (0) k/uL Chloride 110 H (98-107) mmol/L BUN 25 H (9-20) mg/dL Creatinine 1.33 H (0.66-1.25) mg/dL Calcium 8.3 L (8.4-10.2) mg/dL Total Protein 5.1 L (6.3-8.2) g/dL Albumin 2.4 L (3.5-5.0) g/dL Assessment and Plan Assessment: Septic shock most likely source is UTI secondary to Proteus mirabilis, recovered Acute urinary tract infection in a patient with chronic indwelling Quezada catheter Gram-negative bacteremia secondary to Klebsiella pneumoniae. Follow-up blood culture revealed no growth Acute leukocytosis secondary to above, improved Acute kidney injury secondary to acute tubular necrosis, improving Acute hypoxic respiratory failure on 2 L nasal cannula, recovered and on room air oxygen New onset atrial fibrillation, anticoagulated with Eliquis, initiated on am iodarone Benign essential hypertension Dyslipidemia History of CVA with chronic left-sided weakness and deficit History of traumatic brain injury and epilepsy and history of bladder dysfunction History of migraine cephalgia History of fatty liver History of gout Chronic venous insufficiency Plan: The patient was seen and evaluated Labs and medications reviewed Remains stable and on room air Microbiology reviewed Currently on ceftriaxone Transitioned to Ceftin Anticoagulated with Eliquis Continued on DuoNeb inhalations Continued on Symbicort Anticoagulated with Eliquis Plan is to return to [facility] I have personally seen and examined the patient, performed the documentation and the assessment and plan as written. Number of minutes spent on the visit: 10 Dictation was produced using [employer] dictation software. Please excuse any grammatical, word or spelling errors.
== END 2025-04-06 13:19 | DRG 698 ==
LOC: EC 12:04 → 2SICU 15:28 → 3SCARD 04-02 16:57
PROVIDERS: ADMIT Internal Medicine; ATTEND Internal Medicine
PROC: 3E033RZ Introduction of Antiarrhythmic into Peripheral Vein, Percutaneous Approach (ICD-10-PCS; 2025-03-29)
PROC: 3E033XZ Introduction of Vasopressor into Peripheral Vein, Percutaneous Approach (ICD-10-PCS; 2025-03-30)
PROC: 02HV33Z Insertion of Infusion Device into Superior Vena Cava, Percutaneous Approach (ICD-10-PCS; principal; 2025-03-31)
DX: T83.511A Infection and inflammatory reaction due to indwelling urethral catheter, initial encounter (principal); A41.59 Other Gram-negative sepsis; R65.21 Severe sepsis with septic shock; G93.41 Metabolic encephalopathy; N17.0 Acute kidney failure with tubular necrosis; I50.31 Acute diastolic (congestive) heart failure; J96.01 Acute respiratory failure with hypoxia; Z66 Do not resuscitate; I27.20 Pulmonary hypertension, unspecified; F20.0 Paranoid schizophrenia; G81.94 Hemiplegia, unspecified affecting left nondominant side; E11.9 Type 2 diabetes mellitus without complications; I11.0 Hypertensive heart disease with heart failure; G40.909 Epilepsy, unspecified, not intractable, without status epilepticus; J44.9 Chronic obstructive pulmonary disease, unspecified; G20.C Parkinsonism, unspecified; E03.9 Hypothyroidism, unspecified; E66.9 Obesity, unspecified; K76.0 Fatty (change of) liver, not elsewhere classified; F10.11 Alcohol abuse, in remission; F31.30 Bipolar disorder, current episode depressed, mild or moderate severity, unspecified; E87.20 Acidosis, unspecified; E87.0 Hyperosmolality and hypernatremia; J98.11 Atelectasis; E87.1 Hypo-osmolality and hyponatremia; I48.0 Paroxysmal atrial fibrillation; K76.9 Liver disease, unspecified; Z68.34 Body mass index [BMI] 34.0-34.9, adult; B96.4 Proteus (mirabilis) (morganii) as the cause of diseases classified elsewhere; N39.0 Urinary tract infection, site not specified; S06.89AS Other specified intracranial injury with loss of consciousness status unknown, sequela; G43.909 Migraine, unspecified, not intractable, without status migrainosus; E78.5 Hyperlipidemia, unspecified; E87.5 Hyperkalemia; G25.0 Essential tremor; R13.10 Dysphagia, unspecified; G47.33 Obstructive sleep apnea (adult) (pediatric); I95.89 Other hypotension; I87.2 Venous insufficiency (chronic) (peripheral); F41.9 Anxiety disorder, unspecified; N31.9 Neuromuscular dysfunction of bladder, unspecified; N40.1 Benign prostatic hyperplasia with lower urinary tract symptoms; R33.8 Other retention of urine; M50.30 Other cervical disc degeneration, unspecified cervical region; M47.816 Spondylosis without myelopathy or radiculopathy, lumbar region; K21.9 Gastro-esophageal reflux disease without esophagitis; M10.9 Gout, unspecified; J30.9 Allergic rhinitis, unspecified; Z79.85 Long-term (current) use of injectable non-insulin antidiabetic drugs; Z79.51 Long term (current) use of inhaled steroids; Z79.890 Hormone replacement therapy; Z79.899 Other long term (current) drug therapy; Y84.6 Urinary catheterization as the cause of abnormal reaction of the patient, or of later complication, without mention of misadventure at the time of the procedure; Y92.122 Bedroom in nursing home as the place of occurrence of the external cause
CPT/HCPCS: 36415; 71045; 76770; 80048; 80053; 81001; 82272; 83605; 83735; 84295; 85025; 85027; 85610; 85730; 87040; 87077; 87086; 87186; 93005; 93306; 94640; 96361; 96365; 96366; 96367; 96368; 96375; 96376; 99291